=== PATIENT | male | born 1925 | race Caucasian/White ===

== ENCOUNTER 2016-11-02 18:12 | Inpatient (IN) | payer MEDICARE, MEDICAID ==
[~2016-11-02] VITALS: Ht 165.1 cm; Wt 70.0 kg
[~2016-11-02 18:12] MED LIST: 1-ME1LIQ PO; ACET325 PO; AGGR20025 PO; ALBU0.086 INH; ALLO100T PO; ATEN-102 PO; AUGM500T7 OR; CARB0.5D16 EACH EYE; ENOX40P SQ; KPHOS250 PO; LACT PO; LORTA5 PO; MEDR4PAK3 PO; POTA20PA PO; PRAV40TA PO; TAMS0.4C67 PO; TEMA7.5C9 PO
[2016-11-02 18:20] VITALS: BP 153/68; PULSE 103; RESP 18; TEMP 99.2; O2SAT 93
[2016-11-02] MEDS ORDERED: ASPI-110 PO (18:41)
[2016-11-02] MEDS ORDERED: ALLO100T PO (18:41)
[2016-11-02] MEDS ORDERED: AMLO10TA2 PO (18:41)
[2016-11-02] MEDS ORDERED: TRAZ50TA12 PO (18:41)
[2016-11-02] MEDS ORDERED: TAMS0.4C4 PO (18:41)
[2016-11-02] MEDS ORDERED: LISI-519 PO (18:41)
[2016-11-02] MEDS ORDERED: POTA-243 PO (18:41)
[2016-11-02] MEDS ORDERED: CLOP75TA PO (18:41)
[2016-11-02] MEDS ORDERED: PRAV40TA2 PO (18:41)
[2016-11-02] MEDS ORDERED: FERR325T PO (18:41)
[2016-11-02] MEDS ORDERED: BACL10TA PO (18:41)
[2016-11-02] MEDS ORDERED: IPRASOL INH (18:41)
[2016-11-02] MEDS ORDERED: ZOFR4TAB PO (18:41)
[2016-11-02] MEDS ORDERED: PANT40TA3 PO (18:41)
[2016-11-02] MEDS ORDERED: REGL5TAB PO (18:41)
--- NOTE | 2016-11-02 18:48 | PD ---
HPI Chief Complaint: GI Complaint Time Seen by Provider: 18:28 Travel History International Travel<30 days: No Contact w/Intl Traveler<30days: No Traveled to known affect area: No History of Present Illness HPI This patient is sent from the skilled nursing for evaluation. According to staff he had 3 episodes of coffee-ground emesis today. Patient notes that he did have vomiting earlier today but denies any rectal bleeding or diarrhea or melena or abdominal pain. He is not nauseous at this time. He's had an occasional dry cough but otherwise feels his usual baseline. No fever. Symptoms severity is mild. No alleviating factors. He denies history of GI bleed. He is not on blood thinners. Duration one day. PFSH Past Medical History Anemia: Yes Arthritis: Yes (OA) Depression: Yes Heart Rhythm Problems: Yes (1974 ) Cancer: Yes (Prostate) Cardiovascular Problems: Yes (PVD) High Cholesterol: Yes Congestive Heart Failure: Yes Cerebrovascular Accident: Yes (Lt. sided deficit, dysphagia) Coronary Artery Disease: Yes Dementia: Yes Diminished Hearing: Yes GERD: Yes Gout: Yes Genitourinary: Yes (BPH, CKD) Headaches: Yes Hypertension: Yes Immune Disorder: No Musculoskeletal: Yes Neurologic: Yes (Neuropathy ) Psychiatric: Yes Reproductive: No Respiratory: No Immunizations Current: Yes Radiation Therapy: Yes (Prostate) Tetanus Vaccination: Unknown Influenza Vaccination: No (Unknown) PNEUMOCCOCAL Vaccine (Year): 1 Past Surgical History Eye Surgery: Yes (BL cataracts) Joint Replacement: Yes (Lt. hip) Social History Alcohol Use: Yes (Beer few times a week ) Tobacco Use: No Substance Use: No Allergies-Medications (Allergen,Severity, Reaction): Coded Allergies: No Known Allergies (Verified , 11/02/16) Reported Meds & Prescriptions Reported Meds & Active Scripts Active Reported Aspirin 81 (Aspirin) 81 Mg Tabdr 81 Mg PO DAILY Ferrous Sulfate 325 Mg Tab 325 Mg PO DAILY Amlodipine (Amlodipine Besylate) 10 Mg Tab 10 Mg PO DAILY Klor-Con 10 (Potassium Chloride) 10 Meq Tab 10 Meq PO BID Trazodone (Trazodone HCl) 50 Mg Tab 25 Mg PO HS Pravastatin 40 Mg Tab 40 Mg PO DAILY Clopidogrel (Clopidogrel Bisulfate) 75 Mg Tab 75 Mg PO DAILY Allopurinol 100 Mg Tab 100 Mg PO DAILY Tamsulosin (Tamsulosin HCl) 0.4 Mg Cap 0.4 Mg PO HS Lisinopril 5 Mg Tab 5 Mg PO DAILY Baclofen 10 Mg Tab 10 Mg PO Q8HR PRN Duoneb (Ipratropium-Albuterol Neb) 0.5-2.5 Mg/3 Ml Neb 1 Nebule INH Q6HR NEB PRN Zofran (Ondansetron HCl) 4 Mg Tab 4 Mg PO Q6HR PRN Reglan (Metoclopramide HCl) 5 Mg Tab 5 Mg PO DIRECTED Pantoprazole (Pantoprazole Sodium) 40 Mg Tab 40 Mg PO DAILY Review of Systems General / Constitutional: No: Fever Eyes: No: Visual changes HENT: No: Headaches Cardiovascular: No: Chest Pain or Discomfort Respiratory: Positive: Cough, No: Shortness of Breath Gastrointestinal: Positive: Nausea, Vomiting, No: Abdominal Pain Genitourinary: No: Dysuria Musculoskeletal: No: Pain Skin: No Rash Neurologic: No: Weakness Psychiatric: No: Depression Endocrine: No: Polydipsia Hematologic/Lymphatic: No: Easy Bruising Physical Exam Narrative GENERAL: Well-nourished, well-developed patient in no apparent distress. SKIN: Warm and dry. HEAD: Atraumatic. Normocephalic. EYES: Pupils equal and round. No scleral icterus. No injection or drainage. ENT: No nasal bleeding or discharge. Mucous membranes pink and moist. NECK: Trachea midline. No JVD. CARDIOVASCULAR: Regular rate and rhythm. No murmur appreciated. RESPIRATORY: No accessory muscle use. Clear to auscultation. Breath sounds equal bilaterally. GASTROINTESTINAL: Abdomen soft, non-tender, nondistended. Hepatic and splenic margins not palpable. MUSCULOSKELETAL: No obvious deformities. No clubbing. No cyanosis. No edema. NEUROLOGICAL: Awake and alert. No obvious cranial nerve deficits. Motor grossly within normal limits. Normal speech. PSYCHIATRIC: Appropriate mood and affect; insight and judgment normal. Data Data Last Documented VS Vital Signs Date Time Temp Pulse Resp B/P Pulse Ox O2 Delivery O2 Flow Rate FiO2 11/02/16 18:20 99.2 103 18 153/68 93 MDM Medical Decision Making Medical Screen Exam Complete: Yes Emergency Medical Condition: Yes Medical Record Reviewed: Yes Differential Diagnosis Gastric ulcer, esophagitis, gastritis Narrative Course I have reviewed the patient's electronic medical record. Reviewed his skilled nursing paperwork and medication list Patient looks hemodynamically stable. He is basically asymptomatic. I'm just seeing him 15 minutes before my shift ends. I've initiated the workup to include IV placement along with CBC and metabolic profile and coagulation studies He is on cardiac monitoring. Case will be checked out to Dr. Bolaños to assist with disposition after workup complete. He already takes acid blocking medication Mark Anthony Linda MD Nov 02, 2016 18:47
[2016-11-02 19:10] LABS: EOSINOPHIL % 0.1 % (0.0-4.0); HEMATOCRIT 38.6 % (39.0-51.0); LYMPH % 3.1 % (9.0-44.0); LYMPHOCYTE # 0.8 TH/MM3 (1.0-4.8); MEAN CORPUSCULAR HGB CONC 33.7 % (32.0-36.0); MONO % 3.3 % (0.0-8.0); NEUT % 93.5 % (16.0-70.0); PLATELET COUNT 236 TH/MM3 (150-450); RED BLOOD COUNT 4.07 MIL/MM3 (4.50-5.90); RED CELL DISTRIBUTION WIDTH 11.9 % (11.6-17.2); WHITE BLOOD COUNT 25.6 TH/MM3 (4.0-11.0)
[2016-11-02 19:13] LABS: HEMO FLAGS DIFF FINAL
[2016-11-02 19:15] LABS: POTASSIUM 4.2 MEQ/L (3.5-5.1)
[2016-11-02 19:18] LABS: BICARBONATE 23.8 MEQ/L (21.0-32.0)
[2016-11-02 19:20] LABS: APTT (PATIENT) 22.9 SEC (24.3-30.1); PROTHROMBIN TIME - PATIENT 11.2 SEC (9.8-11.6)
[2016-11-02 19:30] VITALS: BP 145/85; PULSE 89; RESP 18; O2SAT 96
[2016-11-02] MEDS ORDERED: SODIUM CHLOR 0.9% 1000 ML INJ 1,000 ML IV SCH ×2 (21:00→22:45)
--- NOTE | 2016-11-02 21:02 | RADHPO ---
EXAM DATE/TIME: 11/02/2016 20:05 [facility] COMPARISON: CT ABDOMEN & PELVIS W/O CONTRAST, December 01, 2012, 21:05. INDICATIONS : Nausea and vomiting beginning today. ORAL CONTRAST: No oral contrast ingested. RADIATION DOSE: 20.96 CTDIvol (mGy) MEDICAL HISTORY : Congestive hearrt failure. Gastroesophageal reflux disease. Carcinoma, prostate. SURGICAL HISTORY : Left hip replacement. ENCOUNTER: Initial ACUITY: 1 day PAIN SCALE: 5/10 LOCATION: Abdomen. TECHNIQUE: Volumetric scanning of the abdomen and pelvis was performed. Using automated exposure control and ad justment of the mA and/or kV according to patient size, radiation dose was kept as low as reasonably achievable to obtain optimal diagnostic quality images. FINDINGS: Atherosclerotic calcifications of the aorta, coronary arteries and visceral branches again seen. 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 Liver, gallbla dder, spleen, pancreas, adrenal glands are unremarkable. Bilateral renal cysts are again seen. Left t otal hip arthroplasty is noted. There is mild bronchiectasis and peribronchial thickening in the lowe r lobes. Patchy right basilar infiltrate. Degenerative changes of the spine are seen. No free fluid o r free air. No obstruction. The esophagus is distended and fluid-filled. There is mild gastric disten tion. CONCLUSION: 1. Mild gastric distention and fluid-filled esophagus. 2. No bowel obstruction. Boston Bryant MD on November 02, 2016 at 20:44 Board Certified Radiologist. This report was verified electronically.
[2016-11-02 21:12] VITALS: BP 152/84; PULSE 92; RESP 18; O2SAT 94
--- NOTE | 2016-11-02 21:22 | PD ---
Physical Exam Time Seen by Provider: 21:[address] PITTMAN left this patient with me to check the results of the lab and make a disposition. Also, the patient has had a cough productive of yellow sputum for 3 days. In the past he has been admitted for pneumonia with a similar cough. On physical exam the patient has left lower quadrant tenderness without guarding or rebound. Lung exam shows right posterior lower rhonchi, rales. The CBC shows a white count of 25,600. There is a shift to the left with 94% neutrophils. The basic metabolic profile shows a BUN of 37, creatinine 2.0, glucose 173 but is otherwise normal. Data Data Last Documented VS Vital Signs Date Time Temp Pulse Resp B/P Pulse Ox O2 Delivery O2 Flow Rate FiO2 11/02/16 22:41 88 18 154/75 95 Room Air 11/02/16 18:20 99.2 Orders Iv Access Insert/Monitor (11/02/16 18:53) Complete Blood Count With Diff (11/02/16 18:53) Basic Metabolic Panel (Bmp) (11/02/16 18:53) Prothrombin Time / Inr (Pt) (11/02/16 18:53) Act Partial Throm Time (Ptt) (11/02/16 18:53) Blood Culture (11/02/16 19:39) Urinalysis - C+S If Indicated (11/02/16 19:39) Ct Abd/Pel W/O Iv Contrast (11/02/16 19:39) Lactic Acid (11/02/16 19:56) Sodium Chlor 0.9% 1000 Ml Inj (Ns 1000 M (11/02/16 21:00) Chest, Pa & Lat (11/02/16 21:10) Amylase (11/02/16 18:20) Lipase (11/02/16 18:20) Pneumococcal Urinary Antigen (11/02/16 21:22) Legionella Urinary Antigen (11/02/16 21:22) Piperacil-Tazo 4.5 Gm Premix (Zosyn 4.5 (11/02/16 21:30) Azithromycin Inj (Zithromax Inj) (11/02/16 21:30) Sodium Chlor 0.9% 1000 Ml Inj (Ns 1000 M (11/02/16 22:45) Labs Laboratory Tests Test 11/02/16 11/02/16 18:20 19:50 White Blood Count 25.6 TH/MM3 Red Blood Count 4.07 MIL/MM3 Hemoglobin 13.0 GM/DL Hematocrit 38.6 % Mean Corpuscular Volume 95.0 FL Mean Corpuscular Hemoglobin 32.0 PG Mean Corpuscular Hemoglobin 33.7 % Concent Red Cell Distribution Width 11.9 % Platelet Count 236 TH/MM3 Mean Platelet Volume 8.2 FL Neutrophils (%) (Auto) 93.5 % Lymphocytes (%) (Auto) 3.1 % Monocytes (%) (Auto) 3.3 % Eosinophils (%) (Auto) 0.1 % Basophils (%) (Auto) 0.0 % Neutrophils # (Auto) 24.0 TH/MM3 Lymphocytes # (Auto) 0.8 TH/MM3 Monocytes # (Auto) 0.8 TH/MM3 Eosinophils # (Auto) 0.0 TH/MM3 Basophils # (Auto) 0.0 TH/MM3 CBC Comment DIFF FINAL Differential Comment Prothrombin Time 11.2 SEC Prothromb Time International 1.0 RATIO Ratio Activated Partial 22.9 SEC Thromboplast Time Sodium Level 141 MEQ/L Potassium Level 4.2 MEQ/L Chloride Level 105 MEQ/L Carbon Dioxide Level 23.8 MEQ/L Anion Gap 12 MEQ/L Blood Urea Nitrogen 37 MG/DL Creatinine 2.00 MG/DL Estimat Glomerular Filtration 32 ML/MIN Rate Random Glucose 173 MG/DL Calcium Level 9.4 MG/DL Amylase Level 35 U/L Lipase 96 U/L Lactic Acid Level 1.4 mmol/L [facility] Medical Record Reviewed: Yes Supervised Visit with JOHN: Yes Interpretation(s) The CT abdomen pelvis shows bowel gastric distention and fluid filled esophagus as well as patchy right basilar infiltrate. The chest x-ray is normal. The CBC shows a white count of 25,600 with 94% neutrophils. The coagulation profile was essentially normal. The basic metabolic profile shows a creatinine of 2.0, BUN of 37, GFR 32 and glucose 173 but is otherwise unremarkable. Differential Diagnosis Pneumonia, diverticulitis, ischemic bowel, sepsis, electrolyte disorder, hyper/ hypoglycemia, renal insufficiency Narrative Course The patient appears to have pneumonia seen on the CT scan. The pneumonia is easily heard with auscultation. The patient is not hypoxic. I discussed the patient with Dr. Solis, the patient will be admitted to her. Physician Communication Physician Communication I discussed the patient with Dr. Solis. The patient will be admitted to her. Diagnosis Primary Impression: Pneumonia Additional Impression: Abdominal pain Ghassan Bolaños MD Nov 02, 2016 21:22
[2016-11-02] MEDS ORDERED: AZITHROMYCIN INJ 500 MG in SODIUM CHLOR 0.9% 250 ML INJ 250 ML IV ONE (21:30)
[2016-11-02] MEDS ORDERED: PIPERACIL-TAZO 4.5 GM PREMIX 100 ML IV ONE (21:30)
--- NOTE | 2016-11-02 21:50 | RADHPO ---
EXAM DATE/TIME: 11/02/2016 21:15 [facility] COMPARISON: CHEST PA & LAT, December 07, 2012, 9:23. INDICATIONS : Cough and vomiting. MEDICAL HISTORY : Stroke. Congestive heart failure. Gastroesophageal reflux disease. Carcinoma, prostate. SURGICAL HISTORY : None. ENCOUNTER: Initial ACUITY: 1 day PAIN SCORE: 3/10 LOCATION: Bilateral chest FINDINGS: PA and lateral views of the chest demonstrate the lungs to be symmetrically aerated without evidence of mass, infiltrate or effusion. The cardiomediastinal contours are unremarkable. Osseous structure s are intact. CONCLUSION: Normal examination. Boston Bryant MD on November 02, 2016 at 21:48 Board Certified Radiologist. This report was verified electronically.
[2016-11-02 22:41] VITALS: BP 154/75; PULSE 88; RESP 18; O2SAT 95
[2016-11-02] MEDS ORDERED: NALOXONE HCL 0.4 MG/ML AMP IV PRN (23:00)
[2016-11-02] MEDS ORDERED: SODIUM CHLORIDE 0.9% FLUSH 5 ML FLUSH FLUSH PRN (23:00)
[2016-11-02 23:21] LABS: HEMATOCRIT 31.7 % (39.0-51.0); REVIEW FLAG FINAL
[2016-11-02 23:45] VITALS: BP 136/80; PULSE 75; RESP 20; TEMP 98.2; O2SAT 93
[2016-11-02 23:53] VITALS: BP 148/80; PULSE 89; RESP 18; O2SAT 94
[2016-11-03 04:00] VITALS: BP 160/89; PULSE 87; RESP 20; TEMP 98.5; O2SAT 92
[2016-11-03 06:00] LABS: AUTOMATED NEUTROPHIL # 21.4 TH/MM3 (1.8-7.7); EOSINOPHIL # 0.1 TH/MM3 (0-0.4); EOSINOPHIL % 0.4 % (0.0-4.0); HEMATOCRIT 30.8 % (39.0-51.0); LYMPHOCYTE # 1.5 TH/MM3 (1.0-4.8); MEAN CELL VOLUME 95.5 FL (80.0-100.0); MEAN CORPUSCULAR HEMOGLOBIN 33.2 PG (27.0-34.0); MEAN CORPUSCULAR HGB CONC 34.8 % (32.0-36.0); MONO % 6.6 % (0.0-8.0); PLATELET COUNT 194 TH/MM3 (150-450); RED BLOOD COUNT 3.23 MIL/MM3 (4.50-5.90); RED CELL DISTRIBUTION WIDTH 12.1 % (11.6-17.2); WHITE BLOOD COUNT 24.6 TH/MM3 (4.0-11.0)
[2016-11-03 06:01] LABS: HEMO FLAGS DIFF FINAL
[2016-11-03 06:11] LABS: POTASSIUM 3.7 MEQ/L (3.5-5.1)
[2016-11-03 06:14] LABS: BICARBONATE 22.7 MEQ/L (21.0-32.0)
[2016-11-03 06:50] LABS: BLOOD, URINE SMALL (NEG); GLUCOSE,URINE NEG (NEG); KETONE, URINE TRACE mg/dL (NEG); NITRITE,URINE NEG (NEG)
[2016-11-03 06:52] LABS: METHOD OF COLLECTION CLEAN CATCH; URINE COLOR YELLOW (YELLW/STRAW)
[2016-11-03 06:56] LABS: COMMENT (UR) CULT NOT INDICATED; CULTURE IF INDICATED CULT NOT INDICATED; RBC, URINE 0-3 /hpf (0-3); SQUAMOUS EPITHELIAL CELL URINE 0-5 /hpf (0-5)
--- NOTE | 2016-11-03 07:57 | HHI.HP ---
Johnny Dong [facility] Johnny Dong MD Admission Diagnosis pneumonia Diagnoses: (1) Sepsis Diagnosis: Principal (2) HCAP (healthcare-associated pneumonia) Diagnosis: Principal (3) Coffee ground emesis Diagnosis: Principal (4) Anemia Diagnosis: Principal (5) Leukocytosis Diagnosis: Principal (6) Prerenal azotemia Diagnosis: Principal (7) Stage 3 chronic kidney disease Diagnosis: Secondary (8) HTN (hypertension) Diagnosis: Principal Chief Complaint: cough Travel History International Travel<30 Days: No Contact w/Intl Traveler <30 Da: No Traveled to Known Affected Are: No Sepsis Criteria SIRS Criteria (2 or more): Heart rate over 90, WBC > 97206, < 4000 or > 10% bands Sepsis Criteria (SIRS+source): Infect source susp/known Criteria Outcome: Meets sepsis criteria History of Present Illness 89-year-old male with history of dementia, anemia, CAD, CHF, remote h/ o A.Fib, hypertension, hyperlipidemia, CVA, PVD, CKD, BPH, arthritis, depression , gout, GERD, and h/o prostate cancer presents with complaint of cough. [facility] as there was report by staff of 3 episodes of coffee-ground emesis per ED note. Patient states he has been coughing a lot with production of yellowish-white sputum. Admits to mild fever. Admits to nausea and vomiting stating he has had black vomitus and also states he had used red cough syrup. He denies any recent melena and states he has not had a bowel movement in the past few days. He denies any chest pain. Only admits to abdominal pain from coughing. Denies any dysuria or diarrhea. Review of Systems Constitutional: COMPLAINS OF: Fever Respiratory: COMPLAINS OF: Cough Cardiovascular: DENIES: Chest pain Gastrointestinal: COMPLAINS OF: Abdominal pain (from coughing), Nausea, Vomiting, DENIES: Black stools, Diarrhea Genitourinary: DENIES: Dysuria Other ROS x 10 negative unless otherwise stated above. Past Family Social History Past Medical History Medical history is obtained primarily from EMR as patient is not completely reliable. Dementia CVA with left-sided deficits Coronary artery disease PVD Atrial fibrillation 1974 Hyperlipidemia Hypertension CKD, BPH GERD Gout Prostate cancer Osteoarthritis Anemia Past Surgical History Left hip replacement Bilateral cataract surgery Reported Medications Aspirin 81 (Aspirin) 81 Mg Tabdr 81 Mg PO DAILY Ferrous Sulfate 325 Mg Tab 325 Mg PO DAILY Amlodipine (Amlodipine Besylate) 10 Mg Tab 10 Mg PO DAILY Klor-Con 10 (Potassium Chloride) 10 Meq Tab 10 Meq PO BID Trazodone (Trazodone HCl) 50 Mg Tab 25 Mg PO HS Pravastatin 40 Mg Tab 40 Mg PO DAILY Clopidogrel (Clopidogrel Bisulfate) 75 Mg Tab 75 Mg PO DAILY Allopurinol 100 Mg Tab 100 Mg PO DAILY Tamsulosin (Tamsulosin HCl) 0.4 Mg Cap 0.4 Mg PO HS Lisinopril 5 Mg Tab 5 Mg PO DAILY Baclofen 10 Mg Tab 10 Mg PO Q8HR PRN Duoneb (Ipratropium-Albuterol Neb) 0.5-2.5 Mg/3 Ml Neb 1 Nebule INH Q6HR NEB PRN Zofran (Ondansetron HCl) 4 Mg Tab 4 Mg PO Q6HR PRN Reglan (Metoclopramide HCl) 5 Mg Tab 5 Mg PO DIRECTED Pantoprazole (Pantoprazole Sodium) 40 Mg Tab 40 Mg PO DAILY Allergies: Coded Allergies: No Known Allergies (Verified , 11/02/16) Family History Father of pneumonia. Social History Denies cigarette smoking. Admits to drinking very little alcohol; occasional beer. Physical Exam Vital Signs Vital Signs Date Time Temp Pulse Resp B/P Pulse Ox O2 Delivery O2 Flow Rate FiO2 11/03/16 04:00 98.5 87 20 160/89 92 11/02/16 23:54 89 18 94 11/02/16 23:53 89 18 148/80 94 Room Air 11/02/16 23:45 98.2 75 20 136/80 93 11/02/16 22:41 88 18 154/75 95 Room Air 11/02/16 21:12 92 18 152/84 94 Room Air 11/02/16 19:30 89 18 145/85 96 Room Air 11/02/16 18:20 99.2 103 18 153/68 93 Physical Exam GENERAL: This is a pleasant, well-nourished, well-developed patient, in no apparent distress. SKIN: No rashes, ecchymoses or lesions. HEAD: Atraumatic. Normocephalic. EYES: Pupils equal round. No scleral icterus. No injection or drainage. ENT: MMM. Airway patent. NECK: Trachea midline. CARDIOVASCULAR: Regular rate and rhythm. RESPIRATORY: Crackles over the right base. GASTROINTESTINAL: Abdomen soft, non-tender, nondistended. MUSCULOSKELETAL: No lower extremity edema bilaterally. NEUROLOGICAL: Awake and alert. Motor grossly within normal limits. Normal speech. Laboratory Laboratory Tests Test 11/02/16 11/02/16 11/02/16 11/03/16 18:20 19:50 23:05 05:10 White Blood Count 25.6 24.6 Red Blood Count 4.07 3.23 Hemoglobin 13.0 10.9 10.7 Hematocrit 38.6 31.7 30.8 Mean Corpuscular Volume 95.0 95.5 Mean Corpuscular Hemoglobin 32.0 33.2 Mean Corpuscular Hemoglobin 33.7 34.8 Concent Red Cell Distribution Width 11.9 12.1 Platelet Count 236 194 Mean Platelet Volume 8.2 8.3 Neutrophils (%) (Auto) 93.5 87.0 Lymphocytes (%) (Auto) 3.1 6.0 Monocytes (%) (Auto) 3.3 6.6 Eosinophils (%) (Auto) 0.1 0.4 Basophils (%) (Auto) 0.0 0.0 Neutrophils # (Auto) 24.0 21.4 Lymphocytes # (Auto) 0.8 1.5 Monocytes # (Auto) 0.8 1.6 Eosinophils # (Auto) 0.0 0.1 Basophils # (Auto) 0.0 0.0 CBC Comment DIFF FINAL DIFF FINAL Differential Comment Prothrombin Time 11.2 Prothromb Time International 1.0 Ratio Activated Partial 22.9 Thromboplast Time Sodium Level 141 143 Potassium Level 4.2 3.7 Chloride Level 105 111 Carbon Dioxide Level 23.8 22.7 Anion Gap 12 9 Blood Urea Nitrogen 37 45 Creatinine 2.00 1.80 Estimat Glomerular Filtration 32 36 Rate Random Glucose 173 115 Calcium Level 9.4 8.9 Amylase Level 35 Lipase 96 Blood Type A NEGATIVE Antibody Screen NEGATIVE Lactic Acid Level 1.4 Test 11/03/16 06:40 Urine Collection Type CLEAN CATCH Urine Color YELLOW Urine Turbidity CLEAR Urine pH 6.0 Urine Specific [place] 1.018 Urine Protein 30 Urine Glucose (UA) NEG Urine Ketones TRACE Urine Occult Blood SMALL Urine Nitrite NEG Urine Bilirubin NEG Urine Leukocyte Esterase NEG Urine RBC 0-3 Urine Squamous Epithelial 0-5 Cells Urine Amorphous Sediment FEW Microscopic Urinalysis Comment CULT NOT INDICATED Urine Collection Time 0640 Date/Time Procedure Status Source Growth 11/03/16 06:40 Legionella Antigen Received Urine Random Urine Pending 11/03/16 06:40 Streptococcus pneumoniae Antigen (M Received Urine Random Urine Pending 11/02/16 19:55 Aerobic Blood Culture Received Blood Peripheral Pending 11/02/16 19:55 Anaerobic Blood Culture Received Blood Peripheral Pending Result Diagram: 11/03/16 0510 11/03/16 0510 Imaging Last Impressions Chest X-Ray 11/02/162109 Signed Impressions: Service Date/Time: Wednesday, November 02, 2016 21:15 - CONCLUSION: Normal examination. Boston Bryant MD Abdomen/Pelvis CT 11/02/16 193 Signed Impressions: Service Date/Time: Wednesday, November 02, 2016 20:05 - CONCLUSION: 1. Mild gastric distention and fluid-filled esophagus. 2. No bowel obstruction. Boston Bryant MD Assessment and Plan Assessment and Plan 89-year-old male with: Sepsis: Heart rate 103. White blood cell count 25.6-->24.6, elevated neutrophils. Lactic acid normal. Source of infection pneumonia. -IVF -Antibiotics as below -Blood cultures 2 pending. -Telemetry, vitals -Monitor intake and output HCAP: [facility] Productive cough. Chest x-ray was personally reviewed without acute abnormality, but CT of the abdomen showed a right basilar infiltrate. Leukocytosis. Patient was given 1 dose of Zosyn and azithromycin in the ED. -Continue Zosyn 4.5 g every 6 hours IV. Azithromycin 500 mg IV every 24 hours. -Sputum culture and Gram stain -Legionella and pneumococcal urinary antigen testing pending -Influenza test -Tessalon for cough Coffee-ground emesis/anemia: 3 episodes reported by [facility]F staff. Hemoglobin 13--> 10.7. History of anemia. Patient takes ferrous sulfate at home. -Check H&H every 6 hours -Start Protonix drip -GI consulted -Hold ferrous sulfate for now until evaluation by GI -IV NS @ 42 mL/hr. Caution with IVF due to h/o CHF. Prerenal azotemia/CKD Stage 3: Creatinine relatively stable based on prior labs , but BUN is acutely elevated which is likely due to bleeding. BUN/Cr 37/2 --> 45/1.8 s/p 1L IV NS in ED. -IV NS -Monitor BMP HTN: BP 160/89 this morning. Patient took his blood pressure medications yesterday. -Continue home lisinopril and amlodipine this morning Chronic medical problems include: Anemia, CAD, PVD, gout, hyperlipidemia, BPH, GERD. -Hold aspirin and Plavix due to active bleeding -Hold oral Protonix as patient is on drip -Hold allopurinol due to impaired renal function -Continue other home medications as indicated. DVT prevention: TEDs/SCDs. Pharmacologic prophylaxis is contraindicated due to GI bleeding. Written by Hawa Wells PA-C acting as scribe for Dr. Franklin on 11/03/16 at ~0745. The documentation accurately reflects the work and decisions performed face-to- face by la Dr. Franklin on 11/03/16 at ~0745. Physician Certification 2 Midnight Certification Type: Admission for Inpatient Services Order for Inpatient Services The services are ordered in accordance with Medicare regulations or non- Medicare payer requirements, as applicable. In the case of services not specified as inpatient-only, they are appropriately provided as inpatient services in accordance with the 2-midnight benchmark. Estimated LOS (days): 2 days is the estimated time the patient will need to remain in the hospital, assuming treatment plan goals are met and no additional complications. Post-Hospital Plan: [facility] Hawa Wells Nov 03, 2016 07:56
[2016-11-03] MEDS: SODIUM CHLOR 0.9% 1000 ML INJ 1,000 ML IV SCH (09:00)
[2016-11-03] MEDS ORDERED: LEVOFLOXACIN 750 MG PREMIX INJ 150 ML IV SCH ×2 (09:00)
[2016-11-03 09:29] VITALS: BP 160/79; PULSE 84; RESP 16; TEMP 96.8; O2SAT 92
[2016-11-03] MEDS: POTASSIUM CHLORIDE 10 MEQ CONTROLLED RELEASE TAB PO SCH ×2 (09:59→20:47)
[2016-11-03] MEDS: SODIUM CHLORIDE 0.9% FLUSH 5 ML FLUSH FLUSH SCH ×2 (09:59→20:44)
[2016-11-03] MEDS: LISINOPRIL 5 MG TAB PO SCH (09:59)
[2016-11-03] MEDS ORDERED: PIPERACIL-TAZO 3.375 GM PREMIX 50 ML IV SCH (10:00)
[2016-11-03] MEDS ORDERED: PIPERACIL-TAZO 4.5 GM PREMIX 100 ML IV SCH (10:00)
[2016-11-03] MEDS: PRAVASTATIN SOD 40 MG TAB PO SCH (10:00)
[2016-11-03] MEDS: BENZONATATE 100 MG CAP PO PRN ×2 (10:00→20:47)
[2016-11-03 11:00] LABS: HEMATOCRIT 32.3 % (39.0-51.0); REVIEW FLAG FINAL
[2016-11-03 12:00] VITALS: BP 140/73; PULSE 75; RESP 16; TEMP 99.2; O2SAT 94
--- NOTE | 2016-11-03 12:02 | PD.CONS ---
HPI History of Present Illness This is a 89 year old who [facility] He was brought to the ED for C/O cough and 3 episodes of coffee- ground emesis. The patient states he vomited black emesis about 4 times and had associated epigastric tenderness and nausea. He denies any Hx of GI bleeding or ulcers in the past, but does have GERD and tries to avoid spicy and tomato based foods. He is on Omeprazole. Does have a Hx of anemia and H&H today is 10.9 and 32.3 which is down from 13.0 and 38.6 on admission. Denies diarrhea, has not had a BM for about 4 days. He had colonoscopies in the past but he cannot remember when and what the results were, he is not interested in having another colonoscopy. He is not on any blood thinners. CT abdomen was done which showed esophagus was distended and fluid filled, no bowel obstruction was seen. He continues to have tenderness in the epigastric area, but no further vomiting. He does have a cough which is productive. He has a known Hx of prostate CA, HTN, CVA with residual left sided weakness. Denies difficulty swallowing. (Yana Jameson) FOR[facility]LY [facility] Past Medical History Medical history is obtained primarily from EMR as patient is not completely reliable. Dementia CVA with left-sided deficits Coronary artery disease PVD Atrial fibrillation 1974 Hyperlipidemia Hypertension CKD, BPH GERD Gout Prostate cancer Osteoarthritis Anemia Past Surgical History Left hip replacement Bilateral cataract surgery (Yana Jameson) Coded Allergies: No Known Allergies (Verified , 11/02/16) Medications Reported Meds & Active Scripts Active Reported Aspirin 81 (Aspirin) 81 Mg Tabdr 81 Mg PO DAILY Ferrous Sulfate 325 Mg Tab 325 Mg PO DAILY Amlodipine (Amlodipine Besylate) 10 Mg Tab 10 Mg PO DAILY Klor-Con 10 (Potassium Chloride) 10 Meq Tab 10 Meq PO BID Trazodone (Trazodone HCl) 50 Mg Tab 25 Mg PO HS Pravastatin 40 Mg Tab 40 Mg PO DAILY Clopidogrel (Clopidogrel Bisulfate) 75 Mg Tab 75 Mg PO DAILY Allopurinol 100 Mg Tab 100 Mg PO DAILY Tamsulosin (Tamsulosin HCl) 0.4 Mg Cap 0.4 Mg PO HS Lisinopril 5 Mg Tab 5 Mg PO DAILY Baclofen 10 Mg Tab 10 Mg PO Q8HR PRN Duoneb (Ipratropium-Albuterol Neb) 0.5-2.5 Mg/3 Ml Neb 1 Nebule INH Q6HR NEB PRN Zofran (Ondansetron HCl) 4 Mg Tab 4 Mg PO Q6HR PRN Reglan (Metoclopramide HCl) 5 Mg Tab 5 Mg PO DIRECTED Pantoprazole (Pantoprazole Sodium) 40 Mg Tab 40 Mg PO DAILY Family History Father of pneumonia. Social History Denies cigarette smoking. Admits to drinking very little alcohol; occasional beer. (Yana Jameson) Review of Systems Gastrointestinal: COMPLAINS OF: Abdominal pain, Nausea, Vomiting, DENIES: Constipation, Diarrhea, Difficulty Swallowing, Odynophagia, Swelling of Abdomen (Yana Jameson) GI Exam Vitals I&O Vital Signs Date Time Temp Pulse Resp B/P Pulse Ox O2 Delivery O2 Flow Rate FiO2 11/03/16 09:29 96.8 84 16 160/79 92 11/03/16 04:00 98.5 87 20 160/89 92 11/02/16 23:54 89 18 94 11/02/16 23:53 89 18 148/80 94 Room Air 11/02/16 23:45 98.2 75 20 136/80 93 11/02/16 22:41 88 18 154/75 95 Room Air 11/02/16 21:12 92 18 152/84 94 Room Air 11/02/16 19:30 89 18 145/85 96 Room Air 11/02/16 18:20 99.2 103 18 153/68 93 I/O 11/02/16 11/02/16 11/02/16 11/03/16 11/03/16 11/03/16 07:00 15:00 23:00 07:00 15:00 23:00 Intake Total 60 ml Output Total 400 ml Balance -340 ml Intake Oral 60 ml Output Urine Total 400 ml # Bowel Movements 0 Imaging Last 48 hours Impressions Chest X-Ray 11/02/162109 Signed Impressions: Service Date/Time: Wednesday, November 02, 2016 21:15 - CONCLUSION: Normal examination. Boston Bryant MD Abdomen/Pelvis CT 11/02/16 193 Signed Impressions: Service Date/Time: Wednesday, November 02, 2016 20:05 - CONCLUSION: 1. Mild gastric distention and fluid-filled esophagus. 2. No bowel obstruction. Boston Bryant MD Laboratory Test 11/02/16 11/02/16 11/02/16 11/03/16 18:20 19:50 23:05 05:10 White Blood Count 25.6 TH/MM3 24.6 TH/MM3 Red Blood Count 4.07 MIL/MM3 3.23 MIL/MM3 Hemoglobin 13.0 GM/DL 10.9 GM/DL 10.7 GM/DL Hematocrit 38.6 % 31.7 % 30.8 % Mean Corpuscular Volume 95.0 FL 95.5 FL Mean Corpuscular Hemoglobin 32.0 PG 33.2 PG Mean Corpuscular Hemoglobin 33.7 % 34.8 % Concent Red Cell Distribution Width 11.9 % 12.1 % Platelet Count 236 TH/MM3 194 TH/MM3 Mean Platelet Volume 8.2 FL 8.3 FL Neutrophils (%) (Auto) 93.5 % 87.0 % Lymphocytes (%) (Auto) 3.1 % 6.0 % Monocytes (%) (Auto) 3.3 % 6.6 % Eosinophils (%) (Auto) 0.1 % 0.4 % Basophils (%) (Auto) 0.0 % 0.0 % Neutrophils # (Auto) 24.0 TH/MM3 21.4 TH/MM3 Lymphocytes # (Auto) 0.8 TH/MM3 1.5 TH/MM3 Monocytes # (Auto) 0.8 TH/MM3 1.6 TH/MM3 Eosinophils # (Auto) 0.0 TH/MM3 0.1 TH/MM3 Basophils # (Auto) 0.0 TH/MM3 0.0 TH/MM3 CBC Comment DIFF FINAL DIFF FINAL Differential Comment Prothrombin Time 11.2 SEC Prothromb Time International 1.0 RATIO Ratio Activated Partial 22.9 SEC Thromboplast Time Sodium Level 141 MEQ/L 143 MEQ/L Potassium Level 4.2 MEQ/L 3.7 MEQ/L Chloride Level 105 MEQ/L 111 MEQ/L Carbon Dioxide Level 23.8 MEQ/L 22.7 MEQ/L Anion Gap 12 MEQ/L 9 MEQ/L Blood Urea Nitrogen 37 MG/DL 45 MG/DL Creatinine 2.00 MG/DL 1.80 MG/DL Estimat Glomerular Filtration 32 ML/MIN 36 ML/MIN Rate Random Glucose 173 MG/DL 115 MG/DL Calcium Level 9.4 MG/DL 8.9 MG/DL Amylase Level 35 U/L Lipase 96 U/L Blood Type A NEGATIVE Antibody Screen NEGATIVE Lactic Acid Level 1.4 mmol/L Test 11/03/16 11/03/16 06:40 10:50 Urine Collection Type CLEAN CATCH Urine Color YELLOW Urine Turbidity CLEAR Urine pH 6.0 Urine Specific Cable 1.018 Urine Protein 30 mg/dL Urine Glucose (UA) NEG mg/dL Urine Ketones TRACE mg/dL Urine Occult Blood SMALL Urine Nitrite NEG Urine Bilirubin NEG Urine Leukocyte Esterase NEG Urine RBC 0-3 /hpf Urine Squamous Epithelial 0-5 /hpf Cells Urine Amorphous Sediment FEW Microscopic Urinalysis Comment CULT NOT INDICATED Urine Collection Time 0640 Hemoglobin 10.9 GM/DL Hematocrit 32.3 % Date/Time Procedure Status Source Growth 11/03/16 10:30 Influenza Types A,B Antigen (MAGO) - Final Complete Nasal Washing NEGATIVE FOR FLU A AND B ANTIGEN.... 11/03/16 10:00 Gram Stain Received Sputum Expectorated Sputum Pending 11/03/16 10:00 Sputum Culture Received Sputum Expectorated Sputum Pending 11/03/16 06:40 Legionella Antigen - Final Complete Urine Random Urine PRESUMPTIVE NEGATIVE FOR LEGIONELLA P... 11/03/16 06:40 Streptococcus pneumoniae Antigen (M - Final Complete Urine Random Urine PRESUMPTIVE NEGATIVE FOR STREPTOCOCCU... 11/02/16 19:55 Aerobic Blood Culture - Preliminary Resulted Blood Peripheral NO GROWTH IN 1 DAY 11/02/16 19:55 Anaerobic Blood Culture - Preliminary Resulted Blood Peripheral NO GROWTH IN 1 DAY Physical Examination HEENT: Pupils round and reactive to light; normocephalic; atraumatic; no jaundice. Throat is clear. NECK: Neck is supple, no JVD, no lymphadenopathy. CHEST: Decreased breath sounds and bilateral wheezes CARDIAC: Regular rate and rhythm with no murmur gallop or rubs. ABDOMEN: Soft, mildly distended, tender in epigastric area; no hepatosplenomegaly; bowel sounds are present in all four quadrants. EXTREMITIES: No clubbing, cyanosis, or edema. SKIN: Normal; no rash; no jaundice. CAR DETAILER:; alert and oriented times three, forgetful (Yana Jameson) Assessment and Plan Assessment: (1) Coffee ground emesis (2) Abdominal pain (3) Constipation Plan This is an 89 year old male who had nausea, vomiting and coffee ground emesis with associated epigastric pain and anemia. He is on Plavix and takes aspirin and is on oral iron for anemia. Does have a known Hx of GERD and is on Omeprazole. He has had colonoscopies in the past but is not having any lower GI bleeding Sx at this time. For the coffee ground emesis and epigastric pain will schedule an EGD. Plan -NPO after midnight -Obtain consent for EGD -Hold Plavix -No NSAIDS -Continue PPI -Follow H&H -Call GI for any signs of bleeding -Add Miralax -Supportive care Patient was seen and examined by Dr. Cristina and myself, this consult is written on his behalf. (Yana Jameson) Physician Comments Seen and examined with BERENICE, no active bleeding at this time. Tolerating po diet.. Monitor H/H. EGD planned for tomorrow. Will follow, thank you (Loretta Cristina MD) Problem Qualifiers (1) Abdominal pain: Qualified Code: R10.13 - Epigastric pain Yana Jameson Nov 03, 2016 12:01 Loretta Cristina MD Nov 03, 2016 12:59
[2016-11-03] MEDS ORDERED: POLYETHYLENE GLYCOL 17 GM PKG PO PRN (12:15)
[2016-11-03] MEDS: PANTOPRAZOLE INJ 80 MG in SODIUM CHLORIDE 0.9% INJ 100 ML IV SCH ×2 (13:02→20:46)
[2016-11-03 16:00] VITALS: BP 139/72; PULSE 87; RESP 16; TEMP 98.9; O2SAT 94
[2016-11-03] MEDS: PIPERACIL-TAZO 3.375 GM PREMIX 50 ML IV SCH ×2 (16:00→23:46)
[2016-11-03] MEDS ORDERED: AZITHROMYCIN INJ 500 MG in SODIUM CHLOR 0.9% 250 ML INJ 250 ML IV SCH (16:00)
[2016-11-03 17:26] LABS: REVIEW FLAG FINAL
[2016-11-03 20:25] VITALS: PULSE 88
[2016-11-03] MEDS: AZITHROMYCIN INJ 500 MG in SODIUM CHLOR 0.9% 250 ML INJ 250 ML IV SCH (20:41)
[2016-11-03 20:47] VITALS: BP 154/81; PULSE 84; RESP 18; TEMP 98.4; O2SAT 95
[2016-11-03] MEDS: TAMSULOSIN HCL 0.4 MG CAP PO SCH (20:47)
[2016-11-03] MEDS: traZODone HCL 50 MG TAB PO SCH (20:48)
[2016-11-04] VITALS (7 sets, daily range): BP systolic 124–158; BP diastolic 60–92; PULSE 54–91; RESP 18–20; TEMP 97–99.4; O2SAT 93–97
[2016-11-04] MEDS: PIPERACIL-TAZO 3.375 GM PREMIX 50 ML IV SCH ×4 (03:59→20:57)
[2016-11-04 06:32] LABS: AUTOMATED NEUTROPHIL # 15.7 TH/MM3 (1.8-7.7); BASOPHIL # 0.1 TH/MM3 (0-0.2); BASOPHIL % 0.4 % (0.0-2.0); EOSINOPHIL # 0.4 TH/MM3 (0-0.4); HEMATOCRIT 28.2 % (39.0-51.0); HEMO FLAGS DIFF FINAL; LYMPH % 6.5 % (9.0-44.0); LYMPHOCYTE # 1.2 TH/MM3 (1.0-4.8); MEAN CELL VOLUME 94.8 FL (80.0-100.0); MEAN CORPUSCULAR HEMOGLOBIN 32.5 PG (27.0-34.0); MEAN CORPUSCULAR HGB CONC 34.3 % (32.0-36.0); MONO % 6.5 % (0.0-8.0); NEUT % 84.6 % (16.0-70.0); PLATELET COUNT 186 TH/MM3 (150-450); RED BLOOD COUNT 2.97 MIL/MM3 (4.50-5.90); RED CELL DISTRIBUTION WIDTH 12.1 % (11.6-17.2); WHITE BLOOD COUNT 18.6 TH/MM3 (4.0-11.0)
[2016-11-04 06:37] LABS: POTASSIUM 3.5 MEQ/L (3.5-5.1)
[2016-11-04 06:44] LABS: BICARBONATE 23.7 MEQ/L (21.0-32.0)
[2016-11-04] MEDS: POTASSIUM CHLORIDE 10 MEQ CONTROLLED RELEASE TAB PO SCH ×3 (09:00→20:46)
[2016-11-04] MEDS: PRAVASTATIN SOD 40 MG TAB PO SCH ×2 (09:52→16:11)
[2016-11-04] MEDS: PANTOPRAZOLE INJ 80 MG in SODIUM CHLORIDE 0.9% INJ 100 ML IV SCH ×2 (09:52→16:38)
[2016-11-04] MEDS: LISINOPRIL 5 MG TAB PO SCH ×2 (09:52→16:11)
[2016-11-04] MEDS: BENZONATATE 100 MG CAP PO PRN (09:53)
[2016-11-04] MEDS: SODIUM CHLORIDE 0.9% FLUSH 5 ML FLUSH FLUSH SCH ×2 (09:54→20:46)
[2016-11-04] MEDS: SODIUM CHLOR 0.9% 1000 ML INJ 1,000 ML IV SCH (09:55)
[2016-11-04] MEDS ORDERED: PNEUMOCOCCAL POLYVALENT INJ 25 MCG/0.5 ML SYR IM ONE (10:00)
--- NOTE | 2016-11-04 15:33 | MR ---
cc: OBINNA CRISTINA M.D., MATTHEW DATE: 11/04/2016. PATIENT OF: Mark Anthony Franklin MD. PROCEDURE PERFORMED: EGD. INDICATIONS FOR THE PROCEDURE: Nausea, vomiting, hematemesis. ENDOSCOPIST: Obinna Cristina MD. DESCRIPTION OF THE PROCEDURE IN DETAIL: After informed consent and explaining the risks of the procedure to the patient including bleeding, perforation, risk of anesthesia, Mr. Patel was placed in the left lateral decubitus position and sedated with the help of anesthesia. The upper endoscope was advanced from the mouth to the second portion of the duodenum. Normal duodenum seen. The scope withdrawn to the stomach revealing some gastritis in the body and the antrum, nonspecific. It was not bleeding. Retroflexion was normal. The distal esophagus revealed LA Class A esophagitis. No evidence of bleeding. The endoscope was withdrawn. The patient appeared to tolerate the procedure well. No apparent complications. IMPRESSION: Esophagitis, gastritis. RECOMMENDATIONS: 1. Advance diet. 2. Continue to monitor labs. 3. If there is further drop in hemoglobin, colonoscopy would be encouraged. Thank you for this referral. MD PJ Talley/DELIA /2:50 PM /3:30 PM
[2016-11-04] MEDS ORDERED: PROPOFOL 200 MG/20 ML AMP IV ONE (15:55)
--- NOTE | 2016-11-04 16:24 | HHI.PR ---
Subjective Remarks Follow up pneumonia, GI bleed, sepsis. The patient had EGD earlier today. He states that he feels okay today. Minimal shortness of breath. Mild cough that is nonproductive. Denies chest pain. No nausea or vomiting. Objective Vitals Vital Signs Date Time Temp Pulse Resp B/P Pulse Ox O2 Delivery O2 Flow Rate FiO2 11/04/16 14:57 82 16 123/63 95 11/04/16 14:47 100.0 53 16 105/60 95 11/04/16 14:10 99.4 86 20 124/60 94 11/04/16 12:00 98.7 84 19 139/82 97 11/04/16 08:00 99.0 85 19 127/76 94 11/04/16 04:00 97.3 83 18 137/70 93 11/04/16 00:00 97.8 90 20 139/77 94 11/03/16 20:47 98.4 84 18 154/81 95 11/03/16 20:25 88 I/O 11/03/16 11/03/16 11/03/16 11/04/16 11/04/16 11/04/16 07:00 15:00 23:00 07:00 15:00 23:00 Intake Total 60 ml 480 ml 1293 ml 343 ml 100 ml Output Total 400 ml 200 ml 800 ml Balance -340 ml 280 ml 1293 ml -457 ml 100 ml Intake Oral 60 ml 480 ml 750 ml IV Total 543 ml 343 ml Other 100 ml Output Urine Total 400 ml 200 ml 800 ml # Voids 3 # Bowel Movements 0 2 Result Diagram: 11/04/16 0535 11/04/16 0535 Imaging Last Impressions Chest X-Ray 11/02/162109 Signed Impressions: Service Date/Time: Wednesday, November 02, 2016 21:15 - CONCLUSION: Normal examination. Boston Bryant MD Abdomen/Pelvis CT 11/02/16 193 Signed Impressions: Service Date/Time: Wednesday, November 02, 2016 20:05 - CONCLUSION: 1. Mild gastric distention and fluid-filled esophagus. 2. No bowel obstruction. Boston Bryant MD Objective Remarks General: Elderly male in no acute distress. Heart: Regular rate and rhythm. No murmur. Lungs: Clear to auscultation bilaterally. No wheezes, rales, or rhonchi. Breathing is nonlabored. Abdomen: Soft, nontender, nondistended. Extremities: No lower extremity edema. Left upper and left lower extremity weakness. Psych: Alert and oriented. Procedures 11/04/16 EGD Urinary Catheter: No Vascular Central Line Catheter: No A/P Problem List: (1) Sepsis ICD Code: A41.9 Status: Acute (2) HCAP (healthcare-associated pneumonia) ICD Code: J18.9 Status: Acute (3) Coffee ground emesis ICD Code: K92.0 Status: Acute (4) Anemia ICD Code: D64.9 Status: Acute (5) Leukocytosis ICD Code: D72.829 Status: Acute (6) Prerenal azotemia ICD Code: R79.89 Status: Acute (7) Stage 3 chronic kidney disease ICD Code: N18.3 Status: Chronic (8) HTN (hypertension) ICD Code: I10 Status: Chronic Assessment and Plan 1. Sepsis: Source is pneumonia. Continue IV fluids, antibiotics. Blood cultures are negative so far. 2. Healthcare associated pneumonia: Patient lives at a [place] [facility]. Cough is productive. Chest x-ray showed no acute abnormality, but CT of the abdomen showed right basilar infiltrate. Patient also has leukocytosis, which is improving. Continue Zosyn, azithromycin. Sputum culture is pending. Influenza, Legionella, pneumococcal testing negative. 3. GI bleed: Patient had coffee-ground emesis. Hemoglobin has stabilized. Appreciate GI recommendations. Status post EGD. Patient found to have gastritis. He has been cleared for discharge by GI. Continue Protonix. 4. Chronic kidney disease stage III with acute worsening secondary to prerenal azotemia. Continue IV fluids. Monitor labs. 5. Hypertension: Continue lisinopril, amlodipine. 6. Coronary artery disease, peripheral vascular disease: Aspirin and Plavix on hold secondary to GI bleed. 7. Gout: Allopurinol on hold secondary to impaired renal function. 8. DVT prophylaxis: LONNY Paez. Chemical prophylaxis contraindicated secondary to GI bleed. Discharge Planning Possible discharge back to SNF tomorrow. Mark Anthony Franklin MD Nov 04, 2016 16:24
[2016-11-04] MEDS: AZITHROMYCIN INJ 500 MG in SODIUM CHLOR 0.9% 250 ML INJ 250 ML IV SCH (20:45)
[2016-11-04] MEDS: traZODone HCL 50 MG TAB PO SCH (20:46)
[2016-11-04] MEDS: TAMSULOSIN HCL 0.4 MG CAP PO SCH (20:46)
[2016-11-05] VITALS: BP 128/50; PULSE 61; RESP 18; TEMP 98.3; O2SAT 93
[2016-11-05] MEDS: PANTOPRAZOLE INJ 80 MG in SODIUM CHLORIDE 0.9% INJ 100 ML IV SCH ×3 (01:57→22:09)
[2016-11-05] MEDS: PIPERACIL-TAZO 3.375 GM PREMIX 50 ML IV SCH ×4 (03:26→22:08)
[2016-11-05 04:00] VITALS: BP 141/81; PULSE 78; RESP 18; TEMP 97.8; O2SAT 96
[2016-11-05 07:52] LABS: AUTOMATED NEUTROPHIL # 13.5 TH/MM3 (1.8-7.7); BASOPHIL % 0.3 % (0.0-2.0); EOSINOPHIL # 0.4 TH/MM3 (0-0.4); EOSINOPHIL % 2.4 % (0.0-4.0); HEMATOCRIT 28.6 % (39.0-51.0); LYMPH % 7.4 % (9.0-44.0); LYMPHOCYTE # 1.2 TH/MM3 (1.0-4.8); MEAN CELL VOLUME 95.6 FL (80.0-100.0); MEAN CORPUSCULAR HEMOGLOBIN 32.2 PG (27.0-34.0); MEAN CORPUSCULAR HGB CONC 33.6 % (32.0-36.0); MONO % 6.3 % (0.0-8.0); NEUT % 83.6 % (16.0-70.0); PLATELET COUNT 182 TH/MM3 (150-450); RED BLOOD COUNT 2.99 MIL/MM3 (4.50-5.90); RED CELL DISTRIBUTION WIDTH 12.4 % (11.6-17.2); WHITE BLOOD COUNT 16.1 TH/MM3 (4.0-11.0)
[2016-11-05 07:54] LABS: HEMO FLAGS DIFF FINAL
[2016-11-05 08:00] VITALS: BP 142/65; PULSE 71; PULSE 80; RESP 16; TEMP 97.8; O2SAT 94
[2016-11-05 08:08] LABS: POTASSIUM 3.4 MEQ/L (3.5-5.1)
[2016-11-05 08:12] LABS: BICARBONATE 20.8 MEQ/L (21.0-32.0)
[2016-11-05] MEDS: POTASSIUM CHLORIDE 10 MEQ CONTROLLED RELEASE TAB PO SCH ×2 (08:28→22:08)
[2016-11-05] MEDS: LISINOPRIL 5 MG TAB PO SCH (08:29)
[2016-11-05] MEDS: PRAVASTATIN SOD 40 MG TAB PO SCH (08:29)
[2016-11-05] MEDS: SODIUM CHLOR 0.9% 1000 ML INJ 1,000 ML IV SCH (08:29)
[2016-11-05] MEDS: SODIUM CHLORIDE 0.9% FLUSH 5 ML FLUSH FLUSH SCH ×2 (08:29→21:00)
[2016-11-05 12:00] VITALS: BP 137/67; PULSE 78; RESP 18; TEMP 97.7; O2SAT 95
--- NOTE | 2016-11-05 13:59 | EKG ---
Date Performed: 11/04/2016 Time Performed: 12:45:44 PTAGE: 89 years EKG: Sinus rhythm with frequent PVCs with 1st degree A-V block. Right bundle branch block Inferior/lateral ST-T change s are nonspecific Low QRS voltages in precordial leads Compared to previous tracing, the patient has developed frequent unifocal premature ventricular contractions. Abnormal ECG PREVIOUS TRACING : 12/01/2012 18.53 DOCTOR: Selma Flannery Interpretating Date/Time 11/05/2016 13:59:12
--- NOTE | 2016-11-05 15:06 | HHI.PR ---
Subjective Remarks Follow-up pneumonia, sepsis. Patient states that he feels very tired today. His daughter is at bedside and states that he has been more lethargic. Cough remains mild and nonproductive. No chest pain, nausea, vomiting. States that he feels overall very weak. Objective Vitals Vital Signs Date Time Temp Pulse Resp B/P Pulse Ox O2 Delivery O2 Flow Rate FiO2 11/05/16 12:00 97.7 78 18 137/67 95 11/05/16 08:00 71 11/05/16 08:00 97.8 80 16 142/65 94 11/05/16 04:00 97.8 78 18 141/81 96 11/05/16 00:00 98.3 61 18 128/50 93 11/04/16 20:00 99.4 54 19 153/71 94 11/04/16 20:00 91 11/04/16 16:00 97.0 91 18 158/92 94 I/O 11/04/16 11/04/16 11/04/16 11/05/16 11/05/16 11/05/16 07:00 15:00 23:00 07:00 15:00 23:00 Intake Total 343 ml 100 ml 1042 ml 880 ml Output Total 800 ml 1250 ml 400 ml Balance -457 ml 100 ml -208 ml 880 ml -400 ml Intake Oral 360 ml IV Total 343 ml 682 ml 880 ml Other 100 ml Output Urine Total 800 ml 1250 ml 400 ml # Bowel Movements 2 1 1 Result Diagram: 11/05/16 0647 11/05/16 0647 Imaging Last Impressions Chest X-Ray 11/02/162109 Signed Impressions: Service Date/Time: Wednesday, November 02, 2016 21:15 - CONCLUSION: Normal examination. Boston Bryant MD Abdomen/Pelvis CT 11/02/16 193 Signed Impressions: Service Date/Time: Wednesday, November 02, 2016 20:05 - CONCLUSION: 1. Mild gastric distention and fluid-filled esophagus. 2. No bowel obstruction. Boston Bryant MD Objective Remarks General: Elderly male in no acute distress. Heart: Regular rate and rhythm. No murmur. Lungs: Clear to auscultation bilaterally. No wheezes, rales, or rhonchi. Breathing is nonlabored. Abdomen: Soft, nontender, nondistended. Extremities: No lower extremity edema. Left upper and left lower extremity weakness. Psych: Alert and oriented. Procedures 11/04/16 EGD Urinary Catheter: No Vascular Central Line Catheter: No A/P Problem List: (1) Sepsis ICD Code: A41.9 Status: Acute (2) HCAP (healthcare-associated pneumonia) ICD Code: J18.9 Status: Acute (3) Coffee ground emesis ICD Code: K92.0 Status: Acute (4) Anemia ICD Code: D64.9 Status: Acute (5) Leukocytosis ICD Code: D72.829 Status: Acute (6) Prerenal azotemia ICD Code: R79.89 Status: Acute (7) Stage 3 chronic kidney disease ICD Code: N18.3 Status: Chronic (8) HTN (hypertension) ICD Code: I10 Status: Chronic Assessment and Plan 1. Sepsis: Source is pneumonia. Continue IV fluids, antibiotics. Blood cultures are negative so far. 2. Healthcare associated pneumonia: [facility] at a [facility]. Cough is productive. Chest x-ray showed no acute abnormality, but CT of the abdomen showed right basilar infiltrate. Patient also has leukocytosis, which continues to improve. Continue Zosyn, azithromycin. Sputum culture is pending. Influenza, Legionella, pneumococcal testing negative. 3. GI bleed: Patient had coffee-ground emesis. Hemoglobin has stabilized. Appreciate GI recommendations. Status post EGD. Patient found to have gastritis. He has been cleared for discharge by GI. Continue Protonix. 4. Chronic kidney disease stage III with acute worsening secondary to prerenal azotemia. Continue IV fluids. Monitor labs. BUN and creatinine are slightly improved today. 5. Hypertension: Continue lisinopril, amlodipine. 6. Coronary artery disease, peripheral vascular disease: Aspirin and Plavix on hold secondary to GI bleed. 7. Gout: Allopurinol on hold secondary to impaired renal function. 8. DVT prophylaxis: SCDs, LONNY starr. Chemical prophylaxis contraindicated secondary to GI bleed. 9. Weakness, fatigue: Continue PT. If symptoms improve, possible discharge tomorrow to SNF. 10. Mild hypokalemia: Supplement potassium. Discharge Planning Possible discharge back to SNF tomorrow. Mark Anthony Franklin MD Nov 05, 2016 15:06
[2016-11-05] MEDS ORDERED: POTASSIUM CHLORIDE 20 MEQ CONTROLLED RELEASE TAB PO ONE (15:15)
[2016-11-05 16:00] VITALS: BP 140/71; PULSE 79; RESP 18; TEMP 97.7; O2SAT 96
--- NOTE | 2016-11-05 18:02 | HHI.PR ---
Subjective Remarks I was made aware by MORA Bartholomew that he received call from tic room that patient had bigeminy. This was approximately 1735 hrs. I have reviewed telemetry which does show bigeminy. Patient does admit to palpitation type feeling for the past month. Denies any chest pain or acute worsening shortness of breath. I discussed with Dr. Franklin. EKG, echo, cardiology consult ordered. Objective Vitals Vital Signs Date Time Temp Pulse Resp B/P Pulse Ox O2 Delivery O2 Flow Rate FiO2 11/05/16 16:00 97.7 79 18 140/71 96 11/05/16 12:00 97.7 78 18 137/67 95 11/05/16 08:00 71 11/05/16 08:00 97.8 80 16 142/65 94 11/05/16 04:00 97.8 78 18 141/81 96 11/05/16 00:00 98.3 61 18 128/50 93 11/04/16 20:00 99.4 54 19 153/71 94 11/04/16 20:00 91 I/O 11/04/16 11/04/16 11/04/16 11/05/16 11/05/16 11/05/16 06:59 14:59 22:59 06:59 14:59 22:59 Intake Total 343 ml 100 ml 360 ml 1562 ml Output Total 800 ml 1250 ml 400 ml Balance -457 ml 100 ml -890 ml 1562 ml -400 ml Intake Oral 360 ml IV Total 343 ml 1562 ml Other 100 ml Output Urine Total 800 ml 1250 ml 400 ml # Bowel Movements 2 1 1 Result Diagram: 11/05/16 0647 11/05/1647 Objective Remarks CARDIO: HRRR RESP: RR normal Procedures 11/04/16 EGD A/P Problem List: (1) Sepsis ICD Code: A41.9 Status: Acute (2) HCAP (healthcare-associated pneumonia) ICD Code: J18.9 Status: Acute (3) Coffee ground emesis ICD Code: K92.0 Status: Acute (4) Anemia ICD Code: D64.9 Status: Acute (5) Leukocytosis ICD Code: D72.829 Status: Acute (6) Prerenal azotemia ICD Code: R79.89 Status: Acute (7) Stage 3 chronic kidney disease ICD Code: N18.3 Status: Chronic (8) HTN (hypertension) ICD Code: I10 Status: Chronic Hawa Wells Nov 05, 2016 18:01
[2016-11-05 20:00] VITALS: BP 157/77; PULSE 76; RESP 20; TEMP 98.6; O2SAT 94
[2016-11-05] MEDS: AZITHROMYCIN INJ 500 MG in SODIUM CHLOR 0.9% 250 ML INJ 250 ML IV SCH (22:08)
[2016-11-05] MEDS: TAMSULOSIN HCL 0.4 MG CAP PO SCH (22:08)
[2016-11-05] MEDS: traZODone HCL 50 MG TAB PO SCH (22:08)
[2016-11-06] VITALS (7 sets, daily range): BP systolic 128–162; BP diastolic 67–92; PULSE 63–90; RESP 20; TEMP 97–99.1; O2SAT 91–97
[2016-11-06] MEDS: PIPERACIL-TAZO 3.375 GM PREMIX 50 ML IV SCH ×4 (04:10→22:00)
[2016-11-06 06:59] LABS: AUTOMATED NEUTROPHIL # 14.1 TH/MM3 (1.8-7.7); BASOPHIL # 0.1 TH/MM3 (0-0.2); BASOPHIL % 0.3 % (0.0-2.0); EOSINOPHIL # 0.3 TH/MM3 (0-0.4); EOSINOPHIL % 1.5 % (0.0-4.0); HEMATOCRIT 28.8 % (39.0-51.0); LYMPHOCYTE # 1.4 TH/MM3 (1.0-4.8); MEAN CELL VOLUME 95.6 FL (80.0-100.0); MEAN CORPUSCULAR HEMOGLOBIN 32.2 PG (27.0-34.0); MEAN CORPUSCULAR HGB CONC 33.7 % (32.0-36.0); MONO % 6.8 % (0.0-8.0); NEUT % 83.4 % (16.0-70.0); PLATELET COUNT 196 TH/MM3 (150-450); POTASSIUM 3.3 MEQ/L (3.5-5.1); RED BLOOD COUNT 3.02 MIL/MM3 (4.50-5.90); RED CELL DISTRIBUTION WIDTH 12.4 % (11.6-17.2); WHITE BLOOD COUNT 17.1 TH/MM3 (4.0-11.0)
[2016-11-06 07:02] LABS: HEMO FLAGS AUTO DIFF
[2016-11-06 07:33] LABS: SCAN/DIFF AUTO DIFF CONFIRMED
[2016-11-06] MEDS: PRAVASTATIN SOD 40 MG TAB PO SCH (08:27)
[2016-11-06] MEDS: POTASSIUM CHLORIDE 10 MEQ CONTROLLED RELEASE TAB PO SCH ×2 (08:28→20:29)
[2016-11-06] MEDS: LISINOPRIL 5 MG TAB PO SCH (08:28)
[2016-11-06] MEDS: SODIUM CHLORIDE 0.9% FLUSH 5 ML FLUSH FLUSH SCH ×2 (08:29→20:45)
[2016-11-06 09:54] LABS: MAGNESIUM 2.1 MG/DL (1.5-2.5)
--- NOTE | 2016-11-06 10:20 | MB ---
cc: MARYANA LERMA DATE OF CONSULTATION: 11/06/2016 INDICATION Abnormal electrocardiogram. HISTORY OF PRESENT ILLNESS A 89-year-old gentleman who presented to the emergency department initially with black emesis, nausea. He had prior history of GI ulcer. Hemoglobin was slightly reduced. He underwent EGD with gastritis and started on Protonix. He also developed pneumonia and was given IV antibiotics. Apparently he has a history of coronary disease, peripheral vascular disease, on aspirin and Plavix, both on hold secondary to his GI bleed. He is not a great historian, most of his history is obtained from chart records. His electrocardiogram showed bigeminy. He has a baseline right bundle-branch block. He also had a 10 beat run of nonsustained ventricular tachycardia which is asymptomatic this morning. We were consulted for further recommendations. PAST MEDICAL HISTORY 1. Dimentia. 2. CVA. 3. Coronary disease. 4. PVD. 5. Atrial fibrillation. 6. Hyperlipidemia. 7. Hypertension. 8. Chronic kidney disease. 9. Gastroesophageal reflux disease. 10. Gout. 11. Prostate cancer. 12. Osteoarthritis. 13. Anemia. ALLERGIES None. MEDICATIONS Home medications: 1. Aspirin. 2. Iron. 3. Amlodipine. 4. Trazodone. 5. Pravastatin. 6. Clopidogrel. 7. Allopurinol. 8. Tamsulosin. 9. Lisinopril. 10. Baclofen. 11. DuoNeb. 12. Zofran. 13. Reglan. 14. Protonix. FAMILY HISTORY Denies any family history of early coronary artery disease, sudden cardiac . SOCIAL HISTORY Denies any alcohol, tobacco or drug use. REVIEW OF SYSTEMS A 12 point review of systems was performed and negative unless otherwise noted in history of present illness. PHYSICAL EXAMINATION VITAL SIGNS: Temperature 99, pulse 76, blood pressure 145/68 mmHg. GENERAL: Alert and oriented x3, in no acute distress. HEENT: Exam shows pupils are reactive to light and accommodation. Extraocular movements are intact. NECK: No elevation in jugular venous distension. No thyromegaly, lymphadenopathy, no carotid bruits. LUNGS: Clear to auscultation bilaterally. CARDIOVASCULAR: Regular rate and rhythm with ectopy, 1/6 systolic murmur. No rubs or gallops. ABDOMEN: Nontender, nondistended. Good bowel sounds. No hepatosplenomegaly. EXTREMITIES: No clubbing, cyanosis or edema. Good peripheral pulses. Cranial nerves intact. Motor and sensory grossly intact. LABORATORY DATA Sodium 143, potassium 3.3, BUN 17, creatinine is 1.7, hemoglobin is 9.7, WBC 17.1. EKG Electrocardiogram shows sinus rhythm, bigeminy, first-degree AV block, right bundle-branch block, nonspecific ST-T wave changes. ASSESSMENT 1. Abnormal EKG with bigeminy. 2. Nonsustained ventricular tachycardia 10 beats on telemetry. 3. History of coronary artery disease, PAD, unspecified. 4. Recent pneumonia. 5. Recent GI bleed with gastritis. PLAN The patient's baseline dementia and age, chronic kidney disease would preclude a more aggressive approach. Bigeminy is not really concerning. His nonsustained ventricular tachycardia is more concerning, but he was asymptomatic. We will obtain a 2-D echocardiogram, looking at his ejection fraction. Will also get a Lexiscan of rule out significant ischemia, although my threshold for anything invasive would be very high. Will add a low-dose beta juana. Will discontinue his ZACARIAS inhibitor to allow for blood pressure and given his chronic kidney disease. We will check electrolytes including thyroid, rule out other causes. If the Lexiscan is relatively unremarkable and echocardiogram shows normal ejection fraction, we will just beta block him and then he can follow up with an outpatient Holter monitor. MD CECILE Cochran/SVITLANA /9:31 AM /9:54 AM
[2016-11-06] MEDS: METOPROLOL TARTRATE 25 MG TAB PO SCH ×2 (10:28→20:29)
[2016-11-06] MEDS: PANTOPRAZOLE INJ 80 MG in SODIUM CHLORIDE 0.9% INJ 100 ML IV SCH ×2 (10:29→20:52)
--- NOTE | 2016-11-06 11:56 | EC ---
Study Study Date:11/06/2016 STUDY CONCLUSIONS SUMMARY - Left ventricle: The cavity size was normal. There was mild focal basal hypertrophy of the septum. Systolic function was normal. The estimated ejection fraction was in the range of 55% to 60%. Wall motion was normal; there were no regional wall motion abnormalities. - Mitral valve: Mild regurgitation. If LV function is below 40, please consider prescribing an ACEI or ARB or document rationale for non-use. PROCEDURE DATA STUDY STATUS: Elective. Procedure: Transthoracic echocardiography. Image quality was fair. Scanning was performed from the parasternal, apical, and subcostal acoustic windows. Study completion: The patient tolerated the procedure well. Transthoracic echocardiography. M-mode, complete 2D, complete spectral Doppler, and color Doppler. Patient status: Inpatient. CARDIAC ANATOMY LEFT VENTRICLE: The cavity size was normal. There was mild focal basal hypertrophy of the septum. Systolic function was normal. The estimated ejection fraction was in the range of 55% to 60%. Wall motion was normal; there were no regional wall motion abnormalities. AORTIC VALVE: Trileaflet; normal thickness leaflets. Doppler: Transvalvular velocity was within the normal range. There was no stenosis. No regurgitation. AORTA: Aortic root: The aortic root was normal in size. MITRAL VALVE: Structurally normal valve. Doppler: Transvalvular velocity was within the normal range. There was no evidence for stenosis. Mild regurgitation. LEFT ATRIUM: The atrium was normal in size. RIGHT VENTRICLE: The cavity size was normal. Wall thickness was normal. PULMONIC VALVE: Doppler: Transvalvular velocity was within the normal range. There was no evidence for stenosis. No regurgitation. TRICUSPID VALVE: Structurally normal valve. Doppler: Transvalvular velocity was within the normal range. No regurgitation. PULMONARY ARTERY: The main pulmonary artery was normal-sized. Systolic pressure was within the normal range. RIGHT ATRIUM: The atrium was normal in size. PERICARDIUM: There was no pericardial effusion. SYSTEMIC VEINS: Inferior vena cava: The vessel was normal in size. BASIC MEASUREMENTS ADULT Normal Left ventricle LV internal dimension, ED, chordal level, 44.8 mm 43-52 PLAX LV internal dimension, ES, chordal level, 34.5 mm 23-38 PLAX Fractional shortening, chordal level, PLAX *23 % >29 LV posterior wall thickness, ED 11.5 mm IVS/LVPW ratio, ED *1.35 <1.3 Ventricular septum Septal thickness, ED 15.5 mm Aorta Root diameter, ED 27 mm Left atrium Anterior-posterior dimension 36 mm Right ventricle RV internal dimension, ED, PLAX 34.4 mm 19-38 DOPPLER MEASUREMENTS ADULT Normal Main pulmonary artery Pressure, S 27 mm Hg =30 Mitral valve Peak E-wave velocity 48.9 cm/s Peak A-wave velocity 74.5 cm/s Peak E/A ratio 0.7 Tricuspid valve Regurgitant peak velocity 204 cm/s Peak RV-RA gradient, S 17 mm Hg Maximal regurgitant velocity 204 cm/s Systemic veins Estimated CVP 10 mm Hg Right ventricle RV pressure, S 27 mm Hg <30 LEGEND: Mean values are shown as u=mean value. Asterisk (*) taylor values outside specified normal range. Prepared and signed by Rona Knowles [id number]
--- NOTE | 2016-11-06 13:35 | EKG ---
Date Performed: 11/05/2016 Time Performed: 18:07:36 PTAGE: 89 years EKG: Sinus rhythm with bigeminal PVCs with borderline 1st degree A-V block Right bundle branch block Inferior/lateral ST-T changes are nonspecific Low QRS voltages in precordial leads Since previous tracing, no signific ant change noted Abnormal ECG PREVIOUS TRACING : 11/04/2016 12.45 DOCTOR: Selma Flannery Interpretating Date/Time 11/06/2016 13:31:20
[2016-11-06] MEDS ORDERED: POTASSIUM CL 40 MEQ/30 ML LIQ UDC PO ONE (16:30)
--- NOTE | 2016-11-06 16:41 | HHI.PR ---
Subjective Remarks Follow-up arrhythmia, pneumonia. Patient states that he feels better today. No cough, dyspnea, chest pain. Objective Vitals Vital Signs Date Time Temp Pulse Resp B/P Pulse Ox O2 Delivery O2 Flow Rate FiO2 11/06/16 15:59 97.1 80 20 138/76 97 11/06/16 12:00 97.0 63 20 128/67 96 11/06/16 08:00 99.1 76 20 145/68 95 11/06/16 06:46 77 11/06/16 04:00 98.3 80 20 160/85 92 11/06/16 00:00 98.9 80 20 162/81 91 11/05/16 20:00 76 11/05/16 20:00 98.6 76 20 157/77 94 I/O 11/05/16 11/05/16 11/05/16 11/06/16 11/06/16 11/06/16 06:59 14:59 22:59 06:59 14:59 22:59 Intake Total 1562 ml 1448 ml 771 ml 480 ml Output Total 400 ml 600 ml 850 ml Balance 1562 ml -400 ml 848 ml -79 ml 480 ml Intake Oral 720 ml 320 ml 480 ml IV Total 1562 ml 728 ml 451 ml Output Urine Total 400 ml 600 ml 850 ml # Voids 4 # Bowel Movements 1 1 0 1 Result Diagram: 11/06/16 0618 11/06/16 0618 Imaging Last Impressions Chest X-Ray 11/02/162109 Signed Impressions: Service Date/Time: Wednesday, November 02, 2016 21:15 - CONCLUSION: Normal examination. Boston Bryant MD Abdomen/Pelvis CT 11/02/16 193 Signed Impressions: Service Date/Time: Wednesday, November 02, 2016 20:05 - CONCLUSION: 1. Mild gastric distention and fluid-filled esophagus. 2. No bowel obstruction. Boston Bryant MD Objective Remarks General: Elderly male in no acute distress. Heart: Regular rate and rhythm. No murmur. Lungs: Clear to auscultation bilaterally. No wheezes, rales, or rhonchi. Breathing is nonlabored. Abdomen: Soft, nontender, nondistended. Extremities: No lower extremity edema. Left upper and left lower extremity weakness. Psych: Alert and oriented. Procedures 11/04/16 EGD Urinary Catheter: No Vascular Central Line Catheter: No A/P Problem List: (1) Sepsis ICD Code: A41.9 Status: Acute (2) HCAP (healthcare-associated pneumonia) ICD Code: J18.9 Status: Acute (3) Coffee ground emesis ICD Code: K92.0 Status: Acute (4) Anemia ICD Code: D64.9 Status: Acute (5) Leukocytosis ICD Code: D72.829 Status: Acute (6) Prerenal azotemia ICD Code: R79.89 Status: Acute (7) Stage 3 chronic kidney disease ICD Code: N18.3 Status: Chronic (8) HTN (hypertension) ICD Code: I10 Status: Chronic Assessment and Plan 1. Sepsis: Source is pneumonia. Continue IV fluids, antibiotics. Blood cultures are negative so far. 2. Healthcare associated pneumonia: Patient lives at a [facility]. Cough is productive. Chest x-ray showed no acute abnormality, but CT of the abdomen showed right basilar infiltrate. Patient also has leukocytosis. Continue Zosyn, azithromycin. Sputum culture is pending. Influenza, Legionella, pneumococcal testing negative. 3. GI bleed: Patient had coffee-ground emesis. Hemoglobin has stabilized. Appreciate GI recommendations. Status post EGD. Patient found to have gastritis. He has been cleared for discharge by GI. Continue Protonix. 4. Chronic kidney disease stage III with acute worsening secondary to prerenal azotemia. Continue IV fluids. Monitor labs. BUN and creatinine are stable. 5. Hypertension: Continue lisinopril, amlodipine. 6. Coronary artery disease, peripheral vascular disease: Aspirin and Plavix on hold secondary to GI bleed. 7. Gout: Allopurinol on hold secondary to impaired renal function. 8. DVT prophylaxis: SCDs, LONNY starr. Chemical prophylaxis contraindicated secondary to GI bleed. 9. Weakness, fatigue: Continue PT. 10. Hypokalemia: Supplement potassium. 11. Arrhythmia: Patient noted to have bigeminy. Also had a run of V. tach. Echocardiogram done area appreciate cardiology recommendations. Currently asymptomatic. Discharge Planning Plan for discharge to SNF when medically stable. Mark Anthony Franklin MD Nov 06, 2016 16:41
[2016-11-06] MEDS: traZODone HCL 50 MG TAB PO SCH (20:29)
[2016-11-06] MEDS: TAMSULOSIN HCL 0.4 MG CAP PO SCH (20:29)
[2016-11-06] MEDS: AZITHROMYCIN INJ 500 MG in SODIUM CHLOR 0.9% 250 ML INJ 250 ML IV SCH (20:33)
[2016-11-07] VITALS: BP 137/69; PULSE 71; RESP 20; TEMP 98.7; O2SAT 93
[2016-11-07 04:00] VITALS: BP 147/81; PULSE 84; RESP 20; TEMP 98.7; O2SAT 94
[2016-11-07] MEDS: PIPERACIL-TAZO 3.375 GM PREMIX 50 ML IV SCH ×3 (04:33→12:39)
[2016-11-07 04:53] VITALS: PULSE 76
[2016-11-07] MEDS: PANTOPRAZOLE INJ 80 MG in SODIUM CHLORIDE 0.9% INJ 100 ML IV SCH (05:04)
[2016-11-07 06:14] LABS: AUTOMATED NEUTROPHIL # 13.8 TH/MM3 (1.8-7.7); BASOPHIL # 0.1 TH/MM3 (0-0.2); BASOPHIL % 0.5 % (0.0-2.0); EOSINOPHIL # 0.3 TH/MM3 (0-0.4); EOSINOPHIL % 2.1 % (0.0-4.0); HEMATOCRIT 29.6 % (39.0-51.0); LYMPH % 7.4 % (9.0-44.0); LYMPHOCYTE # 1.2 TH/MM3 (1.0-4.8); MEAN CELL VOLUME 96.8 FL (80.0-100.0); MEAN CORPUSCULAR HEMOGLOBIN 32.1 PG (27.0-34.0); MEAN CORPUSCULAR HGB CONC 33.2 % (32.0-36.0); MONO % 5.2 % (0.0-8.0); NEUT % 84.8 % (16.0-70.0); PLATELET COUNT 213 TH/MM3 (150-450); RED BLOOD COUNT 3.06 MIL/MM3 (4.50-5.90); RED CELL DISTRIBUTION WIDTH 12.6 % (11.6-17.2); WHITE BLOOD COUNT 16.1 TH/MM3 (4.0-11.0)
[2016-11-07 06:15] LABS: HEMO FLAGS DIFF FINAL
[2016-11-07 06:25] LABS: POTASSIUM 3.5 MEQ/L (3.5-5.1)
[2016-11-07] MEDS ORDERED: REGADENOSON INJ 0.4 MG/5 ML SYR IV ONE (09:16)
[2016-11-07 10:37] VITALS: PULSE 77
--- NOTE | 2016-11-07 11:26 | RADHPO ---
EXAM DATE/TIME: 11/07/2016 09:41 CORRECTION Corrected on: November 09, 2016; CORRECTED: Added missing exam form information [facility] COMPARISON: No previous studies available for comparison. INDICATIONS : Nausea and vomiting. Abnormal EKG. Atrial fibrillation. DOSE: 25.6 mCi Tc99m Myoview at stress. 8.3 mCi Tc99m Myoview at rest. 0.4 mg Lexiscan STRESS SYMPTOMS: Headache. EJECTION FRACTION: 68% MEDICAL HISTORY : Hypercholesterolemia. Gastroesophageal reflux disease. Compression fracture. Stroke. Hypertension. PV D. Chronic renal disease. SURGICAL HISTORY : Left hip replacement. ENCOUNTER: Initial ACUITY: 1 day PAIN SCALE: 0/10 LOCATION: chest TECHNIQUE: The patient underwent pharmacologic stress with infusion of prescribed dose. Continuous ECG tracing was monitored during stress. Gated SPECT imaging was performed after stress and conventional SPECT i maging was performed at rest. The examination was performed on a SPECT/CT scanner, both attenuation and non-corrected datasets were reviewed. FINDINGS: DISTRIBUTION: The maximum perfused segment at stress is in the anterior wall. PERFUSION STUDY: The pattern of perfusion at stress is within normal limits. GATED STUDY: There is intact wall motion and thickening without hypokinetic or dyskinetic segments. CONCLUSION: 1. No reversible perfusion defects are identified to suggest stress-induced myocardial ischemia. RISK CATEGORY: Low (<1% Annual Mortality Rate) Boston Bryant MD on November 07, 2016 at 11:24 Board Certified Radiologist. This report was verified electronically. Student Services Director on November 09, 2016 at 11:31 Board Certified Radiologist. This report was verified electronically.
[2016-11-07] MEDS: METOPROLOL TARTRATE 25 MG TAB PO SCH (11:43)
[2016-11-07] MEDS: PRAVASTATIN SOD 40 MG TAB PO SCH (11:43)
[2016-11-07] MEDS: SODIUM CHLORIDE 0.9% FLUSH 5 ML FLUSH FLUSH SCH (11:43)
[2016-11-07] MEDS: POTASSIUM CHLORIDE 10 MEQ CONTROLLED RELEASE TAB PO SCH (11:43)
--- NOTE | 2016-11-07 11:50 | PD.CARD.PN ---
Subjective Subjective Remarks no complaints Objective Medications Active Medications Potassium Chloride (KCl 40 Meq/30 ml Liq) 40 meq ONCE ONCE PO Last administered on 11/06/16 16:36; Admin Dose 40 MEQ; Start 11/06/16 at 16:30; Stop 11/06/16 at 16:33; Status DC Regadenoson (Lexiscan Inj) 0.4 mg STK-MED ONCE IV Last administered on 11/07/16 09:16; Admin Dose 0.4 MG; Start 11/07/16 at 09:16; Stop 11/07/16 at 09:17; Status DC Vital Signs / I&O Vital Signs Date Time Temp Pulse Resp B/P Pulse Ox O2 Delivery O2 Flow Rate FiO2 11/07/16 10:37 77 11/07/16 04:53 76 11/07/16 04:00 98.7 84 20 147/81 94 11/07/16 00:00 98.7 71 20 137/69 93 11/06/16 20:00 98.7 90 20 154/92 95 11/06/16 15:59 97.1 80 20 138/76 97 11/06/16 12:00 97.0 63 20 128/67 96 I/O 11/06/16 11/06/16 11/06/16 11/07/16 11/07/16 11/07/16 07:00 15:00 23:00 07:00 15:00 23:00 Intake Total 771 ml 480 ml 420 ml 120 ml Output Total 850 ml 350 ml 450 ml Balance -79 ml 480 ml 70 ml -330 ml Intake Oral 320 ml 480 ml 420 ml 120 ml IV Total 451 ml Output Urine Total 850 ml 350 ml 450 ml # Voids 4 # Bowel Movements 0 1 1 0 Physical Exam GENERAL: SKIN: Warm and dry. HEAD: Normocephalic. EYES: No scleral icterus. No injection or drainage. NECK: Supple, trachea midline. No JVD or lymphadenopathy. CARDIOVASCULAR: Regular rate and rhythm without murmurs, gallops, or rubs. RESPIRATORY: Breath sounds equal bilaterally. No accessory muscle use. GASTROINTESTINAL: Abdomen soft, non-tender, nondistended. MUSCULOSKELETAL: No cyanosis, or edema. BACK: Nontender without obvious deformity. No CVA tenderness. Laboratory Laboratory Tests Test 11/07/16 05:25 White Blood Count 16.1 TH/MM3 Red Blood Count 3.06 MIL/MM3 Hemoglobin 9.8 GM/DL Hematocrit 29.6 % Mean Corpuscular Volume 96.8 FL Mean Corpuscular Hemoglobin 32.1 PG Mean Corpuscular Hemoglobin 33.2 % Concent Red Cell Distribution Width 12.6 % Platelet Count 213 TH/MM3 Mean Platelet Volume 8.3 FL Neutrophils (%) (Auto) 84.8 % Lymphocytes (%) (Auto) 7.4 % Monocytes (%) (Auto) 5.2 % Eosinophils (%) (Auto) 2.1 % Basophils (%) (Auto) 0.5 % Neutrophils # (Auto) 13.8 TH/MM3 Lymphocytes # (Auto) 1.2 TH/MM3 Monocytes # (Auto) 0.8 TH/MM3 Eosinophils # (Auto) 0.3 TH/MM3 Basophils # (Auto) 0.1 TH/MM3 CBC Comment DIFF FINAL Differential Comment Sodium Level 143 MEQ/L Potassium Level 3.5 MEQ/L Chloride Level 110 MEQ/L Carbon Dioxide Level 21.0 MEQ/L Anion Gap 12 MEQ/L Blood Urea Nitrogen 13 MG/DL Creatinine 1.70 MG/DL Estimat Glomerular Filtration 38 ML/MIN Rate Random Glucose 99 MG/DL Calcium Level 9.1 MG/DL Imaging Last Impressions Chest X-Ray 11/02/162109 Signed Impressions: Service Date/Time: Wednesday, November 02, 2016 21:15 - CONCLUSION: Normal examination. Boston Bryant MD Abdomen/Pelvis CT 11/02/16 193 Signed Impressions: Service Date/Time: Wednesday, November 02, 2016 20:05 - CONCLUSION: 1. Mild gastric distention and fluid-filled esophagus. 2. No bowel obstruction. Boston Bryant MD Assessment and Plan Assessment and Plan arrhythmia - titrate BB. lexiscan negative. EF normal. no further workup necessary. will sign off call with further questions Wesley Baltazar MD Nov 07, 2016 11:50
[2016-11-07 12:00] VITALS: BP 161/79; PULSE 95; RESP 20; TEMP 96.8; O2SAT 98
--- NOTE | 2016-11-07 14:16 | HHI.DS ---
Discharge Summary Admission Date Nov 03, 2016 at 07:53 Discharge Date: Nov 07, 2016 Admitting Diagnosis pneumonia (1) Sepsis ICD Code: A41.9 Diagnosis: Principal (2) HCAP (healthcare-associated pneumonia) ICD Code: J18.9 Diagnosis: Principal (3) Coffee ground emesis ICD Code: K92.0 Diagnosis: Principal (4) Anemia ICD Code: D64.9 Diagnosis: Principal (5) Leukocytosis ICD Code: D72.829 Diagnosis: Principal (6) Prerenal azotemia ICD Code: R79.89 Diagnosis: Principal (7) Hypokalemia ICD Code: E87.6 Diagnosis: Principal (8) Stage 3 chronic kidney disease ICD Code: N18.3 Diagnosis: Secondary (9) HTN (hypertension) ICD Code: I10 Diagnosis: Principal Procedures 11/04/16 EGD Brief History - From Admission 89-year-old male with history of dementia, anemia, CAD, CHF, remote h/ o A.Fib, hypertension, hyperlipidemia, CVA, PVD, CKD, BPH, arthritis, depression , gout, GERD, and h/o prostate cancer presents with complaint of cough. Patient was sent from shelter for evaluation as there was report by staff of 3 episodes of coffee-ground emesis per ED note. Patient states he has been coughing a lot with production of yellowish-white sputum. Admits to mild fever. Admits to nausea and vomiting stating he has had black vomitus and also states he had used red cough syrup. He denies any recent melena and states he has not had a bowel movement in the past few days. He denies any chest pain. Only admits to abdominal pain from coughing. Denies any dysuria or diarrhea. CBC/BMP: 11/07/16 0525 11/07/16 0525 Significant Findings Laboratory Tests Test 11/05/16 11/06/16 11/07/16 06:47 06:18 05:25 White Blood Count 16.1 TH/MM3 17.1 TH/MM3 16.1 TH/MM3 (4.0-11.0) (4.0-11.0) (4.0-11.0) Red Blood Count 2.99 MIL/MM3 3.02 MIL/MM3 3.06 MIL/MM3 (4.50-5.90) (4.50-5.90) (4.50-5.90) Hemoglobin 9.6 GM/DL 9.7 GM/DL 9.8 GM/DL (13.0-17.0) (13.0-17.0) (13.0-17.0) Hematocrit 28.6 % 28.8 % 29.6 % (39.0-51.0) (39.0-51.0) (39.0-51.0) Neutrophils (%) (Auto) 83.6 % 83.4 % 84.8 % (16.0-70.0) (16.0-70.0) (16.0-70.0) Lymphocytes (%) (Auto) 7.4 % 8.0 % 7.4 % (9.0-44.0) (9.0-44.0) (9.0-44.0) Neutrophils # (Auto) 13.5 TH/MM3 14.1 TH/MM3 13.8 TH/MM3 (1.8-7.7) (1.8-7.7) (1.8-7.7) Monocytes # (Auto) 1.0 TH/MM3 1.2 TH/MM3 (0-0.9) (0-0.9) Potassium Level 3.4 MEQ/L 3.3 MEQ/L (3.5-5.1) (3.5-5.1) Chloride Level 112 MEQ/L 110 MEQ/L 110 MEQ/L (98-107) (98-107) (98-107) Carbon Dioxide Level 20.8 MEQ/L (21.0-32.0) Blood Urea Nitrogen 24 MG/DL (7-18) Creatinine 1.70 MG/DL 1.70 MG/DL 1.70 MG/DL (0.60-1.30) (0.60-1.30) (0.60-1.30) Estimat Glomerular Filtration 38 ML/MIN (>89) 38 ML/MIN (>89) 38 ML/MIN (>89) Rate Imaging Last Impressions Chest X-Ray 11/02/160 Signed Impressions: Service Date/Time: Wednesday, November 02, 2016 21:15 - CONCLUSION: Normal examination. Boston Bryant MD Abdomen/Pelvis CT 11/02/161938 Signed Impressions: Service Date/Time: Wednesday, November 02, 2016 20:05 - CONCLUSION: 1. Mild gastric distention and fluid-filled esophagus. 2. No bowel obstruction. Boston Bryant MD PE at Discharge GENERAL: Pleasant happy well-nourished, well-developed patient in no apparent distress. SKIN: Warm and dry. HEAD: Atraumatic. Normocephalic. CARDIOVASCULAR: Regular rate and rhythm. RESPIRATORY: No accessory muscle use. Clear to auscultation. Breath sounds equal bilaterally. GASTROINTESTINAL: NABS. Abdomen soft, non-tender, nondistended. MUSCULOSKELETAL: No lower extremity edema. NEUROLOGICAL: Awake and alert. Motor grossly within normal limits. Normal speech. PSYCHIATRIC: Appropriate mood and affect; insight and judgment normal. Pt update on day of discharge Patient states that he feels "a little better". He denies any shortness of breath. His daughter states he is much improved with his cough. Hospital Course Patient presented from shelter with cough and coffee-ground emesis. Patient was found have sepsis due to pneumonia and he was treated for HCAP with azithromycin and Zosyn. Blood cultures were negative. Sputum culture with heavy growth of normal respiratory lulu. Influenza test negative. Leukocytosis has improved. Patient's cough has decreased he denies any shortness of breath. While hospitalized, the patient developed bigeminy noted on telemetry. He did admit to some palpitation type feelings states he had been experiencing this for one month. Echocardiogram was performed which only showed mild mitral valve regurgitation and mild focal basal hypertrophy of the septum, but patient has good EF. Patient was evaluated by cardiology and nuclear stress test was performed which is negative for ischemia; he was started on metoprolol. In regards to GI bleed, patient was started on a Protonix drip for coffee-ground emesis. Patient was Hemoccult positive and was evaluated by GI. He had an EGD performed which showed esophagitis and gastritis , but no active bleeding. Patient does take aspirin and Plavix as he has a history of coronary artery disease and previous CVA. These were temporarily held. Patient's hemoglobin has remained stable and he has not required blood transfusion. Patient has chronic kidney disease, but was noted to have prerenal azotemia which has resolved with IV hydration. Patient has improved and is stable for discharge. He is advised against using OTC NSAIDs although will remain on Plavix and aspirin as he is at high risk for stroke. He'll remain on Protonix for GI protection. Patient will [facility] to [facility] where he currently resides. Pt Condition on Discharge: Stable Discharge Disposition: Discharge to SNF Discharge Time: > 30 minutes Discharge Instructions DIET: Follow Instructions for: Heart Healthy Diet Activities you can perform: Regular-No Restrictions Follow up Referrals: SNF/[facility]/ - Today New Medications: Levofloxacin (Levaquin) 500 Mg Tab 500 MG PO Q48H Infection Days 6 Ref 0 TAB Metoprolol Tartrate (Metoprolol Tartrate) 25 Mg Tab 50 MG PO Q12HR prevent PVCs Days 30 TAB Continued Medications: Allopurinol (Allopurinol) 100 Mg Tab 100 MG PO DAILY Gout #[address] Ref [address] (Aspirin 81) 81 Mg Tabdr 81 MG PO DAILY Ref 0 TAB Baclofen (Baclofen) 10 Mg Tab 10 MG PO Q8HR PRN MUSCLE SPASM Ref 0 TAB Clopidogrel (Clopidogrel) 75 Mg Tab 75 MG PO DAILY Blood Clot Prevention #30 Ref 0 TAB Ferrous Sulfate (Ferrous Sulfate) 325 Mg Tab 325 MG PO DAILY Nutritional Supplement #30 Ref 0 TAB Ipratropium-Albuterol Neb (Duoneb) 0.5-2.5 Mg/3 Ml Neb 1 NEBULE INH Q6HR NEB PRN SOB/WHEEZING #120 Ref 0 NEBULE Lisinopril (Lisinopril) 5 Mg Tab 5 MG PO DAILY Blood Pressure Management #30 Ref 0 TAB Metoclopramide (Reglan) 5 Mg Tab 5 MG PO DIRECTED #120 Ref 0 TAB Ondansetron (Zofran) 4 Mg Tab 4 MG PO Q6HR PRN NAUSEA OR VOMITING Ref 0 TAB Pantoprazole (Pantoprazole) 40 Mg Tab 40 MG PO DAILY Reflux #30 Ref 0 TAB Potassium Chloride ER (Klor-Con 10) 10 Meq Tab 10 MEQ PO BID Electrolyte Replacement #60 Ref 0 TAB Pravastatin (Pravastatin) 40 Mg Tab 40 MG PO DAILY Cholesterol Management #30 Ref 0 TAB Tamsulosin (Tamsulosin) 0.4 Mg Cap 0.4 MG PO HS Manage Prostate Problems #30 Ref 0 CAP Trazodone (Trazodone) 50 Mg Tab 25 MG PO HS Control Depression #30 Ref 0 TAB Discontinued Medications: Amlodipine (Amlodipine) 10 Mg Tab 10 MG PO DAILY Blood Pressure Management #30 Ref 0 TAB Additional Information Written by Hawa Wells PA-C acting as scribe for Dr. Laughlin on 11/07/16 at 1350. The documentation accurately reflects the work and decisions performed face-to- face by sc Dr. Laughlin on 11/07/16 at 1350. Hawa Wells Nov 07, 2016 14:16
[2016-11-07] MEDS ORDERED: METO25TA3 PO (14:29)
[2016-11-07] MEDS ORDERED: LEVA500T PO (14:29)
[2016-11-07] MEDS ORDERED: METOPROLOL TARTRATE 25 MG TAB PO SCH (21:00)
== END 2016-11-07 16:24 | DRG 871 ==
LOC: PHED 18:12 → INTOOBSV 22:47 → PHEDA 22:47 → PH3B 23:40 → OBSVTOIN 11-03 07:53 → PH3B 11-04 23:02
PROVIDERS: ADMIT Family Medicine; ATTEND Family Medicine
PROC: 0DJ08ZZ Inspection of Upper Intestinal Tract, Via Natural or Artificial Opening Endoscopic (ICD-10-PCS; principal; 2016-11-04 14:30)
DX: A41.9 Sepsis, unspecified organism (principal); J18.9 Pneumonia, unspecified organism; I47.2 Ventricular tachycardia; I50.9 Heart failure, unspecified; I69.354 Hemiplegia and hemiparesis following cerebral infarction affecting left non-dominant side; F03.90 Unspecified dementia, unspecified severity, without behavioral disturbance, psychotic disturbance, mood disturbance, and anxiety; K92.2 Gastrointestinal hemorrhage, unspecified; G62.9 Polyneuropathy, unspecified; I73.9 Peripheral vascular disease, unspecified; F32.9 Major depressive disorder, single episode, unspecified; M19.90 Unspecified osteoarthritis, unspecified site; E78.00 Pure hypercholesterolemia, unspecified; I69.391 Dysphagia following cerebral infarction; R13.10 Dysphagia, unspecified; I25.10 Atherosclerotic heart disease of native coronary artery without angina pectoris; H91.90 Unspecified hearing loss, unspecified ear; K21.0 Gastro-esophageal reflux disease with esophagitis; M10.9 Gout, unspecified; N18.3 Chronic kidney disease, stage 3 (moderate); I12.9 Hypertensive chronic kidney disease with stage 1 through stage 4 chronic kidney disease, or unspecified chronic kidney disease; N40.0 Benign prostatic hyperplasia without lower urinary tract symptoms; Y95 Nosocomial condition; D64.9 Anemia, unspecified; Z85.46 Personal history of malignant neoplasm of prostate; E78.5 Hyperlipidemia, unspecified; Z96.642 Presence of left artificial hip joint; K59.00 Constipation, unspecified; Z87.11 Personal history of peptic ulcer disease; I45.10 Unspecified right bundle-branch block; K29.70 Gastritis, unspecified, without bleeding; R79.89 Other specified abnormal findings of blood chemistry; E87.6 Hypokalemia
CPT/HCPCS: 71020; 74176; 78452; 80048; 81001; 82150; 82272; 83605; 83690; 83735; 84443; 85014; 85018; 85025; 85610; 85730; 86850; 86900; 86901; 87040; 87070; 87205; 87449; 87804; 93005; 93017; 93306; 96365; 96367; A9502; C9113; G0378; J0456; J2543; J2785; J7030; J7050

== ENCOUNTER 2017-01-20 10:45 | Inpatient (IN) | payer MEDICARE, MEDICAID ==
[2017-01-20] VITALS (8 sets, daily range): BP systolic 144–192; BP diastolic 65–93; PULSE 60–95; RESP 18–28; TEMP 98.2–98.9; O2SAT 95–98
[~2017-01-20] VITALS: Ht 170.2 cm; Wt 66.3 kg
[~2017-01-20 10:45] MED LIST changes: -1-ME1LIQ PO; -ACET325 PO; -AGGR20025 PO; -ALBU0.086 INH; +ASPI-110 PO; -ATEN-102 PO; -AUGM500T7 OR; +BACL10TA PO; -CARB0.5D16 EACH EYE; +CLOP75TA PO; -ENOX40P SQ; +FERR325T PO; +IPRASOL INH; -KPHOS250 PO; -LACT PO; +LEVA500T PO; +LISI-519 PO; -LORTA5 PO; -MEDR4PAK3 PO; +METO25TA3 PO; +PANT40TA3 PO; +POTA-243 PO; -POTA20PA PO; -PRAV40TA PO; +PRAV40TA2 PO; +REGL5TAB PO; +TAMS0.4C4 PO; -TAMS0.4C67 PO; -TEMA7.5C9 PO; +TRAZ50TA12 PO; +ZOFR4TAB PO
[2017-01-20] MEDS ORDERED: PIPERACIL-TAZO 4.5 GM PREMIX 100 ML IV STA (10:59)
[2017-01-20] MEDS ORDERED: VANCOMYCIN INJ 1,000 MG in SODIUM CHLOR 0.9% 250 ML INJ 250 ML IV STA (10:59)
[2017-01-20 11:24] LABS: BASOPHIL # 0.1 TH/MM3 (0-0.2); BASOPHIL % 0.5 % (0.0-2.0); EOSINOPHIL # 0.1 TH/MM3 (0-0.4); EOSINOPHIL % 0.5 % (0.0-4.0); HEMATOCRIT 37.7 % (39.0-51.0); HEMO FLAGS DIFF FINAL; LYMPH % 8.7 % (9.0-44.0); LYMPHOCYTE # 1.2 TH/MM3 (1.0-4.8); MEAN CELL VOLUME 92.6 FL (80.0-100.0); MEAN CORPUSCULAR HGB CONC 33.5 % (32.0-36.0); MONO % 3.5 % (0.0-8.0); NEUT % 86.8 % (16.0-70.0); PLATELET COUNT 184 TH/MM3 (150-450); RED BLOOD COUNT 4.06 MIL/MM3 (4.50-5.90); WHITE BLOOD COUNT 13.9 TH/MM3 (4.0-11.0)
[2017-01-20 11:30] LABS: APTT (PATIENT) 23.1 SEC (24.3-30.1); PROTHROMBIN TIME - PATIENT 11.2 SEC (9.8-11.6)
--- NOTE | 2017-01-20 11:31 | PD ---
HPI Chief Complaint: Respiratory Symptoms Time Seen by Provider: 10:52 Travel History International Travel<30 days: No Contact w/Intl Traveler<30days: No Traveled to known affect area: No History of Present Illness HPI 89-year-old male with history of dementia, CAD/CHF, previous CVA with left- sided hemiplegia, HTN, HLD here from his care facility for respiratory difficulties. Her care facility staff patient seems to be having more labored breathing. Unknown duration. Patient himself has dementia and does not know why he is here but denies any complaints at this time. No pain and he does not feel short of breath. No reported fevers or chills. Patient was hospitalized here in October for healthcare associated pneumonia. Remainder of the history is limited due to his dementia and lack of information from shelter staff. PFSH Past Medical History Anemia: Yes Arthritis: Yes (OA) Depression: Yes Heart Rhythm Problems: Yes (1974 ) Cancer: Yes (Prostate) Cardiovascular Problems: Yes (PVD) High Cholesterol: Yes Congestive Heart Failure: Yes Cerebrovascular Accident: Yes (Lt. sided deficit, dysphagia) Coronary Artery Disease: Yes Dementia: Yes Diminished Hearing: Yes Endocrine: No GERD: Yes Gout: Yes Genitourinary: Yes (BPH, CKD) Headaches: Yes Hypertension: Yes Immune Disorder: No Implanted Vascular Access Dvce: Yes Musculoskeletal: Yes Neurologic: Yes (Neuropathy ) Psychiatric: Yes Reproductive: No Respiratory: No Immunizations Current: Yes Radiation Therapy: Yes (Prostate) Tetanus Vaccination: Unknown PNEUMOCCOCAL Vaccine (Year): 1 Past Surgical History Eye Surgery: Yes (BL cataracts) Joint Replacement: Yes (Lt. hip) Social History Alcohol Use: Yes (Beer few times a week ) Tobacco Use: No Substance Use: No Allergies-Medications (Allergen,Severity, Reaction): Coded Allergies: No Known Allergies (Verified , 11/02/16) Reported Meds & Prescriptions Reported Meds & Active Scripts Active Metoprolol Tartrate 25 Mg Tab 50 Mg PO Q12HR 30 Days Reported Atorvastatin (Atorvastatin Calcium) 20 Mg Tab 20 Mg PO HS Pantoprazole (Pantoprazole Sodium) 20 Mg Tab 20 Mg PO DAILY Aspirin 81 (Aspirin) 81 Mg Tabdr 81 Mg PO DAILY Ferrous Sulfate 325 Mg Tab 325 Mg PO TID Take with meals Klor-Con 10 (Potassium Chloride) 10 Meq Tab 10 Meq PO BID Trazodone (Trazodone HCl) 50 Mg Tab 25 Mg PO HS Clopidogrel (Clopidogrel Bisulfate) 75 Mg Tab 75 Mg PO DAILY Allopurinol 100 Mg Tab 100 Mg PO DAILY Tamsulosin (Tamsulosin HCl) 0.4 Mg Cap 0.4 Mg PO HS Lisinopril 5 Mg Tab 5 Mg PO DAILY Zofran (Ondansetron HCl) 4 Mg Tab 4 Mg PO Q6HR PRN Reglan (Metoclopramide HCl) 5 Mg Tab 5 Mg PO TID With meals Review of Systems ROS Limitations: Poor Historian (dementia) Physical Exam Exam Limitations: Poor Historian Narrative GENERAL: Elderly male in no acute distress SKIN: Focused skin exam warm dry, ecchymosis to the left hand. HEAD: Normocephalic. EYES: Pupils equal and round. No scleral icterus. No injection or drainage. ENT: Bilateral hearing aides. No nasal bleeding or discharge. Mucous membranes dry NECK: Supple CARDIOVASCULAR: Regular rate and rhythm. No murmur appreciated. RESPIRATORY: Mild respiratory distress with tachypnea and shallow breathing, decreased throughout particularly in the bases GASTROINTESTINAL: Abdomen soft, non-tender, nondistended. MUSCULOSKELETAL: Contractures NEUROLOGICAL: Awake and alert to self, knows he's in a hospital but does not know one. Not oriented to date. Baseline left hemiplegia. Normal speech. PSYCHIATRIC: Deferred given dementia Data Data Last Documented VS Vital Signs Date Time Temp Pulse Resp B/P Pulse Ox O2 Delivery O2 Flow Rate FiO2 01/20/17 11:47 65 24 152/82 96 Nasal Cannula 2 01/20/17 10:51 98.9 Orders Electrocardiogram (01/20/17 10:59) Complete Blood Count With Diff (01/20/17 10:59) Comprehensive Metabolic Panel (01/20/17 10:59) Prothrombin Time / Inr (Pt) (01/20/17 10:59) Act Partial Throm Time (Ptt) (01/20/17 10:59) Lactic Acid Sepsis Protocol (01/20/17 10:59) Lipase (01/20/17 10:59) Troponin I (01/20/17 10:59) Urinalysis - C+S If Indicated (01/20/17 10:59) Blood Culture (01/20/17 10:59) Chest, Single Ap (01/20/17 10:59) Ecg Monitoring (01/20/17 10:59) Iv Access Insert/Monitor (01/20/17 10:59) Oximetry (01/20/17 10:59) Vancomycin Inj (Vancomycin Inj) (01/20/17 10:59) Piperacil-Tazo 4.5 Gm Premix (Zosyn 4.5 (01/20/17 10:59) Sodium Chlor 0.9% 1000 Ml Inj (Ns 1000 M (01/20/17 11:45) Admit Order (Ed Use Only) (01/20/17 13:05) Labs Laboratory Tests Test 01/20/17 01/20/17 11:00 11:55 White Blood Count 13.9 TH/MM3 Red Blood Count 4.06 MIL/MM3 Hemoglobin 12.6 GM/DL Hematocrit 37.7 % Mean Corpuscular Volume 92.6 FL Mean Corpuscular Hemoglobin 31.0 PG Mean Corpuscular Hemoglobin 33.5 % Concent Red Cell Distribution Width 14.0 % Platelet Count 184 TH/MM3 Mean Platelet Volume 8.4 FL Neutrophils (%) (Auto) 86.8 % Lymphocytes (%) (Auto) 8.7 % Monocytes (%) (Auto) 3.5 % Eosinophils (%) (Auto) 0.5 % Basophils (%) (Auto) 0.5 % Neutrophils # (Auto) 12.0 TH/MM3 Lymphocytes # (Auto) 1.2 TH/MM3 Monocytes # (Auto) 0.5 TH/MM3 Eosinophils # (Auto) 0.1 TH/MM3 Basophils # (Auto) 0.1 TH/MM3 CBC Comment DIFF FINAL Differential Comment Prothrombin Time 11.2 SEC Prothromb Time International 1.0 RATIO Ratio Activated Partial 23.1 SEC Thromboplast Time Sodium Level 139 MEQ/L Potassium Level 3.7 MEQ/L Chloride Level 105 MEQ/L Carbon Dioxide Level 24.7 MEQ/L Anion Gap 9 MEQ/L Blood Urea Nitrogen 16 MG/DL Creatinine 1.76 MG/DL Estimat Glomerular Filtration 37 ML/MIN Rate Random Glucose 112 MG/DL Lactic Acid Level 1.2 mmol/L Calcium Level 9.1 MG/DL Total Bilirubin 0.6 MG/DL Aspartate Amino Transf 14 U/L (AST/SGOT) Alanine Aminotransferase 20 U/L (ALT/SGPT) Alkaline Phosphatase 133 U/L Troponin I 0.05 NG/ML Total Protein 7.6 GM/DL Albumin 3.7 GM/DL Lipase 102 U/L Urine Color LIGHT-YELLOW Urine Turbidity CLEAR Urine pH 6.5 Urine Specific [place] 1.009 Urine Protein 30 mg/dL Urine Glucose (UA) NEG mg/dL Urine Ketones NEG mg/dL Urine Occult Blood NEG Urine Nitrite NEG Urine Bilirubin NEG Urine Urobilinogen LESS THAN 2.0 MG/DL Urine Leukocyte Esterase NEG Urine RBC LESS THAN 1 /hpf Urine WBC 1 /hpf Urine Squamous Epithelial <1 /hpf Cells Urine Hyaline Casts 1 /lpf Urine Mucus FEW /lpf Microscopic Urinalysis Comment CATH-CULT NOT IND MDM Medical Decision Making Medical Screen Exam Complete: Yes Emergency Medical Condition: Yes Medical Record Reviewed: Yes Differential Diagnosis 89-year-old male with history of dementia, CAD/CHF, previous CVA with left- sided hemiplegia, HTN, HLD here from his care facility for respiratory difficulties. Differential includes pneumonia, symptomatic anemia, arrhythmia, ACS, UTI, sepsis. Narrative Course Patient placed on monitor, IV established and blood obtained. Given 1 L normal saline bolus, empirically treated with vancomycin and Zosyn. Twelve-lead EKG shows right bundle branch block but no notable ST abnormalities, normal intervals. Portal chest x-ray obtained that by my read shows no acute abnormalities. CBC, CMP, lipase, coags, lactate, troponin, urinalysis, blood cultures notable for WBC 13.9 hemoglobin 12.6, creatinine 1.76. Lactate normal. Urinalysis negative. Patient will be admitted for further management, rule out sepsis, pneumonia. Critical Care Narrative Aggregate critical care time was 35 minutes. Time to perform other separately billable procedures was not included in the critical care time. My time did not include minutes spent treating any other patients simultaneously or on activities that did not directly contribute to the patient's treatment. The services I provided to this patient were to treat and/or prevent clinically significant deterioration that could result in: Sepsis, cardiopulmonary decompensation, , disability I provided critical care services requiring my management, as noted below: Chart data review, documentation time, medication orders and management, vital sign assessments/reviewing monitor data, ordering and reviewing lab tests, ordering and interpreting/reviewing x-rays and diagnostic studies, care of the patient and discussion of the patient with the admitting physicians. Sepsis Criteria SIRS Criteria (2 or more): Heart rate over 90, RR > 20 or PaCO2 < 32, WBC > 40171, < 4000 or > 10% bands Sepsis Criteria (SIRS+source): Infect source susp/known Diagnosis Primary Impression: Sepsis Qualified Code: A41.9 - Sepsis, due to unspecified organism Additional Impressions: HCAP (healthcare-associated pneumonia) Shortness of breath Admitting Information Admitting Physician Requests: it Krysta Zuniga MD Jan 20, 2017 11:31
[2017-01-20] MEDS ORDERED: PANT20TA2 PO (11:33)
[2017-01-20] MEDS ORDERED: ATOR20TA15 PO (11:33)
[2017-01-20 11:35] LABS: ANION GAP 9 MEQ/L (5-15); AST (GOT) 14 U/L (15-37); BICARBONATE 24.7 MEQ/L (21.0-32.0); BLOOD UREA NITROGEN 16 MG/DL (7-18); CHLORIDE 105 MEQ/L (98-107); GLOMERULAR FILTRATION RATE 37 ML/MIN (>89); POTASSIUM 3.7 MEQ/L (3.5-5.1); SODIUM (NA) 139 MEQ/L (136-145)
[2017-01-20 11:40] LABS: ALKALINE PHOSPHATASE 133 U/L (45-117); ALT (GPT) 20 U/L (12-78); TOTAL BILIRUBIN ADULT 0.6 MG/DL (0.2-1.0)
--- NOTE | 2017-01-20 11:40 | RADRPT ---
EXAM DATE/TIME: 01/20/2017 11:09 [facility] COMPARISON: CHEST PA & LAT, November 02, 2016, 21:15. CHEST SINGLE AP, December 05, 2012, 4:50. INDICATIONS : Short of breath MEDICAL HISTORY : Unobtainable SURGICAL HISTORY : Unobtainable ENCOUNTER: Initial ACUITY: 1 day PAIN SCORE: Non-responsive. LOCATION: Bilateral chest FINDINGS: The lungs are clear. The heart is minimally enlarged. The pulmonary vascularity is normal. There is n o evidence for infiltrate or failure. The portion of the bony skeleton visualized is unremarkable. CONCLUSION: Compensated cardiomegaly otherwise negative. Mick Casanova MD FACR on January 20, 2017 at 11:36 Board Certified Radiologist. This report was verified electronically.
[2017-01-20] MEDS ORDERED: SODIUM CHLOR 0.9% 1000 ML INJ 1,000 ML IV ONE (11:45)
[2017-01-20 12:19] LABS: BLOOD, URINE NEG (NEG); COMMENT (UR) CATH-CULT NOT IND; CULTURE IF INDICATED CATH CULTURE NOT IND; GLUCOSE,URINE NEG (NEG); HYALINE CAST, URINE 1 /lpf (RARE); KETONE, URINE NEG (NEG); MUCUS URINE FEW /lpf (OCC); NITRITE,URINE NEG (NEG); PH, URINE 6.5 (5.0-8.5); SQUAMOUS EPITHELIAL CELL URINE <1 /hpf (0-5); URINE COLOR LIGHT-YELLOW (YELLW/STRAW)
[2017-01-20] MEDS ORDERED: ACETAMINOPHEN 325 MG TAB PO PRN (13:45)
[2017-01-20] MEDS ORDERED: SODIUM CHLORIDE 0.9% FLUSH 5 ML FLUSH FLUSH PRN (13:45)
[2017-01-20] MEDS ORDERED: LORazepam 2 MG/ML VIAL IVS PRN (13:45)
[2017-01-20] MEDS: SODIUM CHLOR 0.9% 1000 ML INJ 1,000 ML IV SCH (13:56)
[2017-01-20] MEDS ORDERED: RESP: ALBUTEROL 2.5 MG/3 ML NEB (PRN) INH (14:00)
[2017-01-20] MEDS ORDERED: Vancomycin Consult Pharmacy XX SCH (14:30)
[2017-01-20] MEDS ORDERED: ENOXAPARIN SODIUM 30 MG/0.3 ML SYRINGE SQ SCH (15:00)
[2017-01-20] MEDS: ASPIRIN EC 81 MG TABEC PO SCH (15:50)
[2017-01-20] MEDS: CLOPIDOGREL 75 MG TAB PO SCH (15:50)
[2017-01-20] MEDS: predniSONE 20 MG TAB PO SCH (15:50)
--- NOTE | 2017-01-20 16:01 | EKG ---
Date Performed: 01/20/2017 Time Performed: 11:05:12 PTAGE: 89 years EKG: Sinus rhythm Borderline first degree AV block RIGHT BUNDLE BRANCH BLOCK ABNORMAL ECG NO PREVIOUS TRACING DOCTOR: Everton Li Interpretating Date/Time 01/20/2017 16:00:07
[2017-01-20] MEDS: RESP: ALBUTEROL 2.5 MG/IPRATROPIUM 0.5 MG NEB (SCH) INH ×2 (16:25→21:04)
--- NOTE | 2017-01-20 16:52 | HHI.HP ---
HPI Service Family Medicine Primary Care Physician Johnny Dong MD Admission Diagnosis sepsis, pneumonia Diagnoses: International Travel<30 Days: No Contact w/Intl Traveler<30days: No Known Affected Area: No History of Present Illness Nic Patel is a very pleasant 89-year-old male, with a past medical history of CVA with left-sided weakness, coronary artery disease, hyperlipidemia, hypertension, hospital acquired pneumonia in November 2016, prostate cancer status post radiation, GI bleed, ventricular tachycardia nonsustained, bigmeny, chronic kidney disease, anemia, and hypokalemia, presenting from [facility], after the nurses noticed labored breathing, lethargy, and desaturations to 89% at rest. They also noted that his blood pressure was elevated at 180/90, and he was tachycardic to 100 bpm. Tawanna from the custodial, states that a son-in-law that was visiting had the stomach flu, however the patient has not been having any diarrhea. The daughter , Robert, says that approximately one week ago her father was vomiting after meals. HPI: On exam, the patient is alert and oriented to person, place, and year. He is able to tell me his 4 daughters names. He denies any current symptoms, such as cough, shortness of breath, or chest pain. He denies any blood in his stool , or diarrhea. He denies any abdominal pain. He denies any headaches, or changes in his vision. (Venancio Schofield MD R2) Review of Systems Other As per HPI. (Venancio Schofield MD R2) Past Family Social History Past Medical History Medical history is obtained primarily from EMR as patient is not completely reliable. Dementia GI bleed CVA with left-sided deficits Coronary artery disease PVD Atrial fibrillation 1974 Hyperlipidemia Hypertension CKD BPH GERD Gout Prostate cancer s/p radiation therapy Osteoarthritis Anemia Past Surgical History Left hip replacement Bilateral cataract surgery (Venancio Schofield MD R2) Allergies: Coded Allergies: No Known Allergies (Verified , 11/02/16) Family History Father of pneumonia. Social History Denies cigarette smoking. Admits to drinking very little alcohol; occasional beer. (Venancio Schofield MD R2) Physical Exam Vital Signs Vital Signs Date Time Temp Pulse Resp B/P Pulse Ox O2 Delivery O2 Flow Rate FiO2 01/20/17 16:25 98 Nasal Cannula 2.00 01/20/17 14:39 84 20 149/77 99 01/20/17 13:54 96 Nasal Cannula 2.00 01/20/17 11:47 65 24 152/82 96 Nasal Cannula 2 01/20/17 11:01 96 Nasal Cannula 2 01/20/17 10:51 98.9 95 28 192/93 95 Physical Exam GENERAL: Frail appearing. Using accessory muscle to breath. RR 24. SKIN: No rashes, ecchymoses or lesions. Cool and dry. HEAD: Atraumatic. CN intact. EYES: Pupils equal round and reactive. ENT: Nose without bleeding, purulent drainage or septal hematoma. NECK: Trachea midline. No JVD or lymphadenopathy. CARDIOVASCULAR: Faint heart sounds, s1 and s2 appreciated. Faint 1/6 ejection murmur at left sternal border. RESPIRATORY: Clear to auscultation. Poor inspiratory effort. GASTROINTESTINAL: Abdomen soft, slightly tender over umbilicus. No masses appreciated. MUSCULOSKELETAL: Extremities without clubbing, cyanosis, or edema. No joint tenderness, effusion, or edema noted. No calf tenderness. Negative Homans sign bilaterally. NEUROLOGICAL: Awake and alert. 2/5 strength left lower ext, 4/5 semiconductor wafers marker strength of left hand, sensation intact throughout. Laboratory Laboratory Tests Test 01/20/17 01/20/17 01/20/17 11:00 11:55 15:20 White Blood Count 13.9 Red Blood Count 4.06 Hemoglobin 12.6 Hematocrit 37.7 Mean Corpuscular Volume 92.6 Mean Corpuscular Hemoglobin 31.0 Mean Corpuscular Hemoglobin 33.5 Concent Red Cell Distribution Width 14.0 Platelet Count 184 Mean Platelet Volume 8.4 Neutrophils (%) (Auto) 86.8 Lymphocytes (%) (Auto) 8.7 Monocytes (%) (Auto) 3.5 Eosinophils (%) (Auto) 0.5 Basophils (%) (Auto) 0.5 Neutrophils # (Auto) 12.0 Lymphocytes # (Auto) 1.2 Monocytes # (Auto) 0.5 Eosinophils # (Auto) 0.1 Basophils # (Auto) 0.1 CBC Comment DIFF FINAL Differential Comment Erythrocyte Sedimentation Rate 29 Prothrombin Time 11.2 Prothromb Time International 1.0 Ratio Activated Partial 23.1 Thromboplast Time Sodium Level 139 Potassium Level 3.7 Chloride Level 105 Carbon Dioxide Level 24.7 Anion Gap 9 Blood Urea Nitrogen 16 Creatinine 1.76 Estimat Glomerular Filtration 37 Rate Random Glucose 112 Lactic Acid Level 1.2 Calcium Level 9.1 Total Bilirubin 0.6 Aspartate Amino Transf 14 (AST/SGOT) Alanine Aminotransferase 20 (ALT/SGPT) Alkaline Phosphatase 133 Troponin I 0.05 LESS THAN 0.02 Total Protein 7.6 Albumin 3.7 Lipase 102 96 Urine Color LIGHT-YELLOW Urine Turbidity CLEAR Urine pH 6.5 Urine Specific [place] 1.009 Urine Protein 30 Urine Glucose (UA) NEG Urine Ketones NEG Urine Occult Blood NEG Urine Nitrite NEG Urine Bilirubin NEG Urine Urobilinogen LESS THAN 2.0 Urine Leukocyte Esterase NEG Urine RBC LESS THAN 1 Urine WBC 1 Urine Squamous Epithelial <1 Cells Urine Hyaline Casts 1 Urine Mucus FEW Microscopic Urinalysis Comment CATH-CULT NOT IND Date/Time Procedure Status Source Growth 01/20/17 14:00 Influenza Types A,B Antigen (MAGO) - Final Complete Nasal Washing NEGATIVE FOR FLU A AND B ANTIGEN.... 01/20/17 11:00 Aerobic Blood Culture Received Blood Peripheral Pending 01/20/17 11:00 Anaerobic Blood Culture Received Blood Peripheral Pending (Venancio Schofield MD R2) Result Diagram: 01/20/17 1100 01/20/17 1100 Imaging Last Impressions Chest X-Ray 01/20/17 1059 Signed Impressions: Service Date/Time: Friday, January 20, 2017 11:09 - CONCLUSION: Compensated cardiomegaly otherwise negative. Mick Casanova MD FACR (Venancio Schofield MD R2) Septic Shock Reassessment Heart: Murmur Lungs: Clear Skin: Warm Peripheral Pulses: Weak Right Radial Weak Left Radial Capillary Refill: Sluggish (Venancio Schofield MD R2) Assessment and Plan Assessment and Plan Mr. Patel is a very pleasant 89-year-old male, who presented to the [facility] emergency room with lethargy, labored respirations, and desaturations to 89%. A workup in the emergency room, showed a slight leukocytosis of 13,000, cardiomegaly on chest x-ray without consolidations, and a UA that was within normal limits. He was admitted for sepsis, given his leukocytosis, tachypnea, tachycardia, and AMS. Problem # 1: Sepsis Tachycardia 95, Resp Rate > 20 (30), WBC > 12,000 (13,000), and probable source (pneumonia, GI, or bacteremia). Lactic acid WNL at 1.2. Chest Xray significant for cardiomegaly, but no consolidations. UA negative for signs of infection. [employer] ABX to cover for HAP -Zosyn 3.375 q 6 given renal impairment 01/20/17-- -Vancomycin as dosed by pharmacy 01/20/17-- IVF at 100 ml/hr NS, s/p 1 L in ED Influenza A & B negative Blood cultures x 2 Urine legionella and strep antigens Prednisone 40 mg daily Breathing treatment (duonebs q 6 hours scheduled). Problem # 2: Previous GI bleed PPI 40 mg by mouth daily. Check Hemoccult stool. Monitor H&H Problem #3: Dementia AAO to place, year, and person. Continue to monitor. Problem # 4: CKD CR on admission was 1.76, at his baseline on prior admission. Continue with IVF , and avoid nephrotoxic drugs. Monitor for signs of obstruction given previous prostate cancer. Monitor I&Os. Problem #5: Bigemy and V. tach on previous admission Electrolytes WNL on admission. K 3.7, Sodium 139. Check Mag and Phos. Replete as necessary. Cardiac telemetry. Previously evaluated by Dr. Baltazar. Nuc stress showed no signs of ischemia in Nov 2016. ECHO during the same admission showed: Mild mitral valve regurgitation, and an EF of 55-60%. Problem #6: Debility Would consider palliative care if continuing to decline. Problem #7: Hypertension 192/93 on admission Metoprolol 50 po q 12 hydralazine 10 mg PO systolic > 160, diastolic > 90. Problem #8: Hx of Prostate Cancer Continue tamulosin 0.4 mg daily. Problem #9: Hx of CVA with Left sided weakness Continue with ASA, plavix. Problem #10: FEN Fluids: 100 ml/hr NS Electrolytes: Recheck BMP in AM Nutrition: Reg basic diet DVT ppx: Lovenox 30 units q 24 hours, monitor for signs of bleeding. wdw Dr. Michel. (Venancio Schofield MD R2) Attending Attestation THIS CASE WAS DISCUSSED WITH THE RESIDENT PHYSICIANS. I HAVE REVIEWED THE RECORD AND AGREE WITH THE ABOVE NOTE AND PLAN OF CARE WAS DISCUSSED. I HAVE AUTHORIZED THE ORDER FOR ADMISSION TO AN IN-PATIENT STATUS. (Ryder Michel MD) Problem List: (1) HTN (hypertension) Status: Chronic (2) Leukocytosis Status: Acute (3) Sepsis Status: Acute (4) HCAP (healthcare-associated pneumonia) Status: Acute (5) Hx of ventricular tachycardia Status: Acute (6) History of GI bleed Status: Acute (7) CKD (chronic kidney disease) Status: Acute (8) Debility Status: Acute (9) Shortness of breath Status: Acute (Venancio Schofield MD R2) Physician Certification 2 Midnight Certification Type: Admission for Inpatient Services Order for Inpatient Services The services are ordered in accordance with Medicare regulations or non- Medicare payer requirements, as applicable. In the case of services not specified as inpatient-only, they are appropriately provided as inpatient services in accordance with the 2-midnight benchmark. Estimated LOS (days): 3 3 days is the estimated time the patient will need to remain in the hospital, assuming treatment plan goals are met and no additional complications. Post-Hospital Plan: Home (Venancio Schofield MD R2) Problem Qualifiers (1) HTN (hypertension): Qualified Code: I10 - Essential hypertension (2) Sepsis: Qualified Code: A41.9 - Sepsis, due to unspecified organism Venancio Schofield MD R2 Jan 20, 2017 16:52 Ryder Michel MD Jan 21, 2017 09:59
[2017-01-20] MEDS: PIPERACIL-TAZO 3.375 GM PREMIX 50 ML IV SCH ×2 (17:26→21:47)
[2017-01-20] MEDS: PANTOPRAZOLE SOD 40 MG DELAYED RELEASE TAB PO SCH (17:26)
[2017-01-20] MEDS: FERROUS SULFATE 325 MG (65 MG ELEMENTAL IRON) TAB PO SCH (17:26)
[2017-01-20] MEDS: SODIUM CHLORIDE 0.9% FLUSH 5 ML FLUSH FLUSH SCH (21:00)
[2017-01-20] MEDS ORDERED: PILL SPLITTER OTHER PRN (21:00)
--- NOTE | 2017-01-20 21:13 | EKG ---
Date Performed: 01/20/2017 Time Performed: 17:45:52 PTAGE: 89 years EKG: Sinus rhythm WITH FIRST DEGREE AV BLOCK WITH FREQUENT ECTOPIC PREMATURE COMPLEXES RIGHT BUNDLE BRANCH BLOCK MODER ATE T-WAVE ABNORMALITY, CONSIDER LATERAL ISCHEMIA ABNORMAL ECG NO SIGNIFICANT CHANGE FROM PRIOR ELECT ROCARDIOGRAM. PREVIOUS TRACING : 01/20/2017 11.05 DOCTOR: Everton Li Interpretating Date/Time 01/20/2017 21:12:28
[2017-01-20] MEDS: POTASSIUM CHLORIDE 10 MEQ CONTROLLED RELEASE TAB PO SCH (21:47)
[2017-01-20] MEDS: TAMSULOSIN HCL 0.4 MG CAP PO SCH (21:47)
[2017-01-20] MEDS: traZODone HCL 50 MG TAB PO SCH (21:47)
[2017-01-20] MEDS: METOPROLOL TARTRATE 50 MG TAB PO SCH (21:47)
[2017-01-20] MEDS: ATORVASTATIN 20 MG TAB PO SCH (21:47)
[2017-01-20] MEDS ORDERED: VANCOMYCIN INJ 1,200 MG in SODIUM CHLOR 0.9% 250 ML INJ 250 ML IV SCH (23:00)
[2017-01-20 23:41] LABS: MAGNESIUM 1.9 MG/DL (1.5-2.5)
[2017-01-21] VITALS (10 sets, daily range): BP systolic 139–172; BP diastolic 63–79; PULSE 52–78; RESP 18–20; TEMP 97.1–98.2; O2SAT 92–99
[2017-01-21] MEDS: SODIUM CHLOR 0.9% 1000 ML INJ 1,000 ML IV SCH ×3 (01:52→19:40)
[2017-01-21] MEDS: RESP: ALBUTEROL 2.5 MG/IPRATROPIUM 0.5 MG NEB (SCH) INH ×4 (05:26→20:13)
--- NOTE | 2017-01-21 06:08 | EKG ---
Date Performed: 01/20/2017 Time Performed: 22:30:46 PTAGE: 89 years EKG: Sinus rhythm WITH FIRST DEGREE AV BLOCK WITH FREQUENT VENTRICULAR PREMATURE COMPLEXES RIGHT BUNDLE BRANCH BLOCK N onspecific T wave changes NO SIGNIFICANT CHANGE FROM PRIOR ELECTROCARDIOGRAM. PREVIOUS TRACING : 01/20/2017 17.45 DOCTOR: Everton Li Interpretating Date/Time 01/21/2017 06:07:29
[2017-01-21] MEDS: PIPERACIL-TAZO 3.375 GM PREMIX 50 ML IV SCH ×4 (06:12→23:09)
[2017-01-21 07:06] LABS: AUTOMATED NEUTROPHIL # 12.1 TH/MM3 (1.8-7.7); BASOPHIL % 0.2 % (0.0-2.0); HEMATOCRIT 32.8 % (39.0-51.0); HEMO FLAGS DIFF FINAL; LYMPH % 6.6 % (9.0-44.0); LYMPHOCYTE # 0.9 TH/MM3 (1.0-4.8); MEAN CELL VOLUME 93.9 FL (80.0-100.0); MEAN CORPUSCULAR HGB CONC 34.1 % (32.0-36.0); MONO % 3.4 % (0.0-8.0); NEUT % 89.8 % (16.0-70.0); PLATELET COUNT 145 TH/MM3 (150-450); RED BLOOD COUNT 3.49 MIL/MM3 (4.50-5.90); RED CELL DISTRIBUTION WIDTH 14.3 % (11.6-17.2); WHITE BLOOD COUNT 13.5 TH/MM3 (4.0-11.0)
[2017-01-21 07:44] LABS: ALKALINE PHOSPHATASE 97 U/L (45-117); ALT (GPT) 18 U/L (12-78); ANION GAP 12 MEQ/L (5-15); AST (GOT) 10 U/L (15-37); BICARBONATE 21.4 MEQ/L (21.0-32.0); BLOOD UREA NITROGEN 23 MG/DL (7-18); CHLORIDE 109 MEQ/L (98-107); GLOMERULAR FILTRATION RATE 34 ML/MIN (>89); MAGNESIUM 1.9 MG/DL (1.5-2.5); POTASSIUM 3.9 MEQ/L (3.5-5.1); SODIUM (NA) 142 MEQ/L (136-145); TOTAL BILIRUBIN ADULT 0.5 MG/DL (0.2-1.0)
[2017-01-21] MEDS: FERROUS SULFATE 325 MG (65 MG ELEMENTAL IRON) TAB PO SCH ×3 (08:13→16:53)
[2017-01-21] MEDS: CLOPIDOGREL 75 MG TAB PO SCH (08:13)
[2017-01-21] MEDS: ALLOPURINOL 100 MG TAB PO SCH (08:13)
[2017-01-21] MEDS: LISINOPRIL 5 MG TAB PO SCH (08:13)
[2017-01-21] MEDS: SODIUM CHLORIDE 0.9% FLUSH 5 ML FLUSH FLUSH SCH ×2 (08:14→20:59)
[2017-01-21] MEDS: POTASSIUM CHLORIDE 10 MEQ CONTROLLED RELEASE TAB PO SCH ×2 (08:14→21:01)
[2017-01-21] MEDS: METOPROLOL TARTRATE 50 MG TAB PO SCH ×2 (08:14→21:01)
[2017-01-21] MEDS: PANTOPRAZOLE SOD 40 MG DELAYED RELEASE TAB PO SCH (08:14)
[2017-01-21] MEDS: ASPIRIN EC 81 MG TABEC PO SCH (08:14)
[2017-01-21] MEDS: predniSONE 20 MG TAB PO SCH (08:14)
--- NOTE | 2017-01-21 08:31 | HHI.FPPN ---
Subjective Remarks No acute events overnight patient is feeling much better this morning. Per nursing staff he seems to be much more interactive and talkative. He continues to require 2 L of nasal cannula oxygen but has been afebrile. He denies chest pain, he denies coughing, he denies abdominal pain, he denies palpitations. In summary this is an 89-year-old male presented to the hospital from his fdc in [employer] with hypoxia and dyspnea. He has a past medical history of CVA with residual left-sided weakness as well as prostate cancer status post radiation. He was hospitalized with pneumonia treated in November 2016 and was discharged to a fdc in [employer]. He was doing well up until yesterday when the nurses noticed labored breathing, lethargy, and hypoxia to 89% at room air. He was also noted to have elevated blood pressures of 180/90 and tachycardic to 100 bpm. There is no mention of fever/chills, coughing, chest pain, or sputum production. Past Medical History Dementia GI bleed CVA with left-sided deficits Coronary artery disease PVD Atrial fibrillation 1974 Hyperlipidemia Hypertension CKD BPH GERD Gout Prostate cancer s/p radiation therapy Osteoarthritis Anemia Past Surgical History Left hip replacement Bilateral cataract surgery Family History Father of pneumonia. Social History Denies cigarette smoking. Admits to drinking very little alcohol; occasional beer Objective Vitals Vital Signs Date Time Temp Pulse Resp B/P Pulse Ox O2 Delivery O2 Flow Rate FiO2 01/21/17 05:28 98 Nasal Cannula 2.00 01/21/17 04:00 97.1 59 20 167/66 98 01/21/17 00:00 97.4 52 20 143/65 99 01/20/17 20:02 Nasal Cannula 2.00 01/20/17 20:00 98.2 63 18 144/91 95 01/20/17 20:00 68 01/20/17 16:25 98 Nasal Cannula 2.00 01/20/17 15:31 98.3 60 20 146/65 98 01/20/17 14:39 84 20 149/77 99 01/20/17 13:54 96 Nasal Cannula 2.00 01/20/17 11:47 65 24 152/82 96 Nasal Cannula 2 01/20/17 11:01 96 Nasal Cannula 2 01/20/17 10:51 98.9 95 28 192/93 95 I/O 01/20/17 01/20/17 01/20/17 01/21/17 01/21/17 01/21/17 07:00 15:00 23:00 07:00 15:00 23:00 Intake Total 817 ml Output Total 300 ml Balance -300 ml 817 ml Intake IV Total 817 ml Output Urine Total 300 ml # Voids 1 0 # Bowel Movements 0 Result Diagram: 01/21/17 0638 01/21/17 0638 Imaging Last 48 hours Impressions Chest X-Ray 01/20/17 1059 Signed Impressions: Service Date/Time: Friday, January 20, 2017 11:09 - CONCLUSION: Compensated cardiomegaly otherwise negative. Mick Casanova MD FACR Objective Remarks GENERAL: Elderly-appearing male, lying in bed in no obvious distress. Right upper extremity with a coarse tremor. SKIN: No rashes, ecchymoses or lesions. Cool and dry. EYES: Pupils equal round and reactive. NECK: Trachea midline. No JVD or lymphadenopathy. CARDIOVASCULAR: Distant heart sounds, however normal right rate and rhythm with no obvious murmur. RESPIRATORY: Clear to auscultation bilaterally with some mild basilar wheezing, moderate air exchange GASTROINTESTINAL: Abdomen soft, slightly tender over umbilicus. No masses appreciated. MUSCULOSKELETAL: Extremities without clubbing, cyanosis, or edema. NEUROLOGICAL: Awake and alert. 2/5 strength left lower ext, 4/5 mobile equipment servicer strength of left hand, sensation intact throughout. A/P Assessment and Plan Mr. Patel is a very pleasant 89-year-old male presenting with sepsis due to hospital-acquired pneumonia Problem List: (1) Sepsis Status: Acute Plan: Meet sepsis criteria with tachypnea, leukocytosis, possible source of infection with pneumonia Antibiotic management for hospital-acquired pneumonia: -Zosyn 3.375 q 6 given renal impairment 01/20/17-- -Vancomycin as dosed by pharmacy 01/20/17-- Symptom control as below: - Prednisone 40 mg by mouth daily - Breathing treatments with duo nebs every 6 hours - Supplemental oxygen as needed to keep O2 sats greater than 90% Wean as tolerated back to room air Urine legionella and strep pneumococcal antigens negative Nasal washing negative for influenza Blood cultures drawn and pending Prednisone 40 mg daily Breathing treatment (duonebs q 6 hours scheduled). (2) HCAP (healthcare-associated pneumonia) Status: Acute Plan: Patient recently hospitalized and treated for pneumonia in 10/21 - C management for sepsis as above (3) CKD (chronic kidney disease) Status: Acute Plan: Patient with known chronic kidney disease with baseline creatinine 1.7- 2.0 - On admission creatinine was 1.76, increased to 1.90 today He was given 1 L normal saline bolus in the emergency department Avoid nephrotoxic agents Consider gentle IV fluids if creatinine continues to increase Monitor with daily lab work (4) HTN (hypertension) Status: Chronic Plan: Labile blood pressures ranging from 192/93 on admission 140-190s systolic and 60s90s diastolic Continue with medications as below: Metoprolol 50 po q 12 hydralazine 10 mg PO systolic > 160, diastolic > 90. (5) Hx of ventricular tachycardia Status: Acute Plan: History of Bigemy and V. tach on previous admission Electrolytes WNL on admission. K 3.7, Sodium 139. Check Mag and Phos. Replete as necessary. Cardiac telemetry. Previously evaluated by Dr. Baltazar. Nuc stress showed no signs of ischemia in Nov 2016. ECHO during the same admission showed: Mild mitral valve regurgitation, and an EF of 55-60%. (6) History of GI bleed Status: Acute Plan: PPI 40 mg by mouth daily. Check Hemoccult stool. Monitor H&H (7) Debility Status: Acute Plan: Physical therapy to evaluate patient and work with him all in hospital Would consider palliative care if continuing to decline. (8) Fluids, Electrolytes, Nutrition Status: Acute Plan: Fluids: 100 ml/hr NS Electrolytes: Recheck BMP in AM Nutrition: Reg basic diet DVT ppx: Lovenox 30 units q 24 hours, monitor for signs of bleeding. Problem Qualifiers (1) Sepsis: Qualified Code: A41.9 - Sepsis, due to unspecified organism (2) HTN (hypertension): Qualified Code: I10 - Essential hypertension Ryder Michel MD Jan 21, 2017 08:31
[2017-01-21] MEDS ORDERED: PANTOPRAZOLE SOD 20 MG DELAYED RELEASE TAB PO SCH (09:00)
--- NOTE | 2017-01-21 10:24 | RADRPT ---
EXAM DATE/TIME: 01/21/2017 09:58 [facility] COMPARISON: CHEST SINGLE AP, January 20, 2017, 11:09. INDICATIONS : Shortness of breath. MEDICAL HISTORY : Congestive heart failure. Gastroesophageal reflux disease. SURGICAL HISTORY : None. ENCOUNTER: Subsequent ACUITY: 2 days PAIN SCORE: 0/10 LOCATION: chest FINDINGS: A single view of the chest demonstrates new mild atelectasis in the left lung base. Otherwise the rig ht lung is clear. There is mild elevation of the left and the diaphragm. Heart size is stable. No ple ural effusions. The bony structures are stable.. CONCLUSION: There is new mild atelectasis in the left lung base. Ryder Treviño MD on January 21, 2017 at 10:22 Board Certified Radiologist. This report was verified electronically.
[2017-01-21] MEDS ORDERED: VANCOMYCIN INJ 1,250 MG in SODIUM CHLOR 0.9% 250 ML INJ 250 ML IV ONE (11:00)
[2017-01-21] MEDS: TAMSULOSIN HCL 0.4 MG CAP PO SCH (21:01)
[2017-01-21] MEDS: ATORVASTATIN 20 MG TAB PO SCH (21:01)
[2017-01-21] MEDS: traZODone HCL 50 MG TAB PO SCH (21:01)
[2017-01-22] VITALS (8 sets, daily range): BP systolic 139–201; BP diastolic 64–91; PULSE 55–83; RESP 18–24; TEMP 97.3–97.8; O2SAT 94–97
[2017-01-22] MEDS: RESP: ALBUTEROL 2.5 MG/IPRATROPIUM 0.5 MG NEB (SCH) INH ×3 (04:09→20:01)
[2017-01-22] MEDS: PIPERACIL-TAZO 3.375 GM PREMIX 50 ML IV SCH ×4 (05:16→22:11)
[2017-01-22] MEDS: SODIUM CHLOR 0.9% 1000 ML INJ 1,000 ML IV SCH ×2 (05:19→14:28)
[2017-01-22 07:44] LABS: AUTOMATED NEUTROPHIL # 10.3 TH/MM3 (1.8-7.7); BASOPHIL % 0.4 % (0.0-2.0); EOSINOPHIL # 0.2 TH/MM3 (0-0.4); EOSINOPHIL % 1.5 % (0.0-4.0); HEMATOCRIT 29.2 % (39.0-51.0); HEMO FLAGS DIFF FINAL; LYMPH % 8.3 % (9.0-44.0); MEAN CELL VOLUME 93.1 FL (80.0-100.0); MEAN CORPUSCULAR HGB CONC 34.4 % (32.0-36.0); MONO % 6.2 % (0.0-8.0); NEUT % 83.6 % (16.0-70.0); PLATELET COUNT 128 TH/MM3 (150-450); RED BLOOD COUNT 3.13 MIL/MM3 (4.50-5.90); RED CELL DISTRIBUTION WIDTH 13.9 % (11.6-17.2); WHITE BLOOD COUNT 12.3 TH/MM3 (4.0-11.0)
[2017-01-22 08:00] LABS: BICARBONATE 22.5 MEQ/L (21.0-32.0); POTASSIUM 3.1 MEQ/L (3.5-5.1)
--- NOTE | 2017-01-22 08:57 | HHI.FPPN ---
Subjective Remarks Mr. Patel reports "not doing well" -- he had 2 episodes of vomiting bright red blood. He denies abdominal pain but does feel nauseous. He has not had a BM for 2-3 days. Urinating frequently, but in small amounts. He denies CP SOB or diarrhea. (Venancio Schofield MD R2) Objective Vitals Vital Signs Date Time Temp Pulse Resp B/P Pulse Ox O2 Delivery O2 Flow Rate FiO2 01/22/17 04:11 94 Nasal Cannula 2.00 01/22/17 04:00 97.6 68 18 152/66 97 01/22/17 00:00 97.8 66 18 139/64 96 01/21/17 20:16 97 Nasal Cannula 2.00 01/21/17 20:00 97.6 73 18 144/79 97 01/21/17 20:00 Nasal Cannula 2.00 01/21/17 16:35 98.2 78 20 147/72 94 01/21/17 12:00 97.3 60 18 144/71 95 01/21/17 11:41 93 Nasal Cannula 2.00 01/21/17 10:45 139/63 I/O 01/21/17 01/21/17 01/21/17 01/22/17 01/22/17 01/22/17 07:00 15:00 23:00 07:00 15:00 23:00 Intake Total 817 ml 480 ml 120 ml Output Total 200 ml Balance 817 ml 280 ml 120 ml Intake Oral 480 ml 120 ml IV Total 817 ml Output Urine Total 200 ml # Voids 1 # Bowel Movements 1 (Venancio Schofield MD R2) Result Diagram: 01/22/17 0658 01/22/17 0655 Imaging Last Impressions Chest X-Ray 01/21/17 0000 Signed Impressions: Service Date/Time: Saturday, January 21, 2017 09:58 - CONCLUSION: There is new mild atelectasis in the left lung base. Ryder Treviño MD Objective Remarks GENERAL: Elderly-appearing male, lying in bed diaphoretic. Coffee ground emesis soiling sheets. Right upper extremity with a coarse tremor. SKIN: No rashes, ecchymoses or lesions. Cool and dry. EYES: Pupils equal round and reactive. NECK: Trachea midline. No JVD or lymphadenopathy. CARDIOVASCULAR: Distant heart sounds, however normal right rate and rhythm with no obvious murmur. RESPIRATORY: Clear to auscultation bilaterally with some mild basilar wheezing, moderate air exchange GASTROINTESTINAL: Distended compared to prior exam. Abdomen soft, slightly tender over umbilicus. No masses appreciated. MUSCULOSKELETAL: Extremities without clubbing, cyanosis, or edema. NEUROLOGICAL: Awake and alert. 2/5 strength left lower ext, 4/5 fraud investigator strength of left hand, sensation intact throughout. (Venancio Schofield MD R2) A/P Assessment and Plan Mr. Patel is a very pleasant 89-year-old male presenting with sepsis due to hospital-acquired pneumonia (Venancio Schofield MD R2) Attending Attestation Patient examined and case discussed with resident physicians I have read the bone agree with assessment/plan as discussed with me I was involved in all medical decision making for this patient Ryder Michel M.D. (Ryder Michel MD) Problem List: (1) Coffee ground emesis Status: Acute Plan: Oct 2016 hospitalization had coffee ground emesis - CT showed "mild gastris distension and fluid-filled esophagitis" EGD at that time showed gastritis and esophagitis. -Repeat H&H at 1500 hr. -Type and Screen -CT abdomen/pelvis w/o contrast -Change to IV PPI, 40 mg BID. -Consult GI, we appreciate their recommendations -Zofran 4 mg q 6 hr PRN N/V - QT interval 450 will monitor. (2) Sepsis Status: Acute Plan: Meet sepsis criteria with tachypnea, leukocytosis, possible source of infection with pneumonia. Antibiotic management for hospital-acquired pneumonia: -Zosyn 3.375 q 6 given renal impairment 01/20/17-- -Vancomycin as dosed by pharmacy 01/20/17-- Symptom control as below: - Prednisone 40 mg by mouth daily -> reduced to 20 mg daily given GI bleed. - Breathing treatments with duo nebs every 6 hours - Supplemental oxygen as needed to keep O2 sats greater than 90% Wean as tolerated back to room air Urine legionella and strep pneumococcal antigens negative Nasal washing negative for influenza Blood cultures drawn and pending (3) HCAP (healthcare-associated pneumonia) Status: Acute Plan: Patient recently hospitalized and treated for pneumonia in 10/21 - C management for sepsis as above (4) CKD (chronic kidney disease) Status: Acute Plan: Patient with known chronic kidney disease with baseline creatinine 1.7- 2.0 - On admission creatinine was 1.76, at baseline on 01/22. He was given 1 L normal saline bolus in the emergency department Avoid nephrotoxic agents Consider gentle IV fluids if creatinine continues to increase Monitor with daily lab work (5) HTN (hypertension) Status: Chronic Plan: Labile blood pressures ranging from 192/93 on admission 140-190s systolic and 60s90s diastolic: Resolved. Continue with medications as below: Metoprolol 50 po q 12 hydralazine 10 mg PO systolic > 160, diastolic > 90. (6) Hx of ventricular tachycardia Status: Acute Plan: History of Bigemy and V. tach on previous admission Electrolytes WNL on admission. K 3.7, Sodium 139. Check Mag and Phos. Replete as necessary. Cardiac telemetry. Previously evaluated by Dr. Baltazar. Nuc stress showed no signs of ischemia in Nov 2016. ECHO during the same admission showed: Mild mitral valve regurgitation, and an EF of 55-60%. (7) History of GI bleed Status: Acute Plan: PPI 40 mg IV BID. Check Hemoccult stool. Monitor H&H at 1500 on 01/22 given GI bleeding. (8) Debility Status: Acute Plan: Physical therapy to evaluate patient and work with him all in hospital Would consider palliative care if continuing to decline. (9) Fluids, Electrolytes, Nutrition Status: Acute Plan: Fluids: 100 ml/hr NS Electrolytes: K+ low to 3.1 -- give 30 meq KCL PO x 1, continue with 10 Meq BID. Recheck BMP in AM. Nutrition: Reg basic diet DVT ppx: Mechanical. Hold medical ppx given pos gi bleed. wdw Dr. Michel. (Venancio Schofield MD R2) Problem Qualifiers (1) Sepsis: Qualified Code: A41.9 - Sepsis, due to unspecified organism (2) HTN (hypertension): Qualified Code: I10 - Essential hypertension Venancio Schofield MD R2 Jan 22, 2017 08:57 Ryder Michel MD Jan 22, 2017 11:25
[2017-01-22] MEDS ORDERED: POTASSIUM CHLORIDE 10 MEQ CONTROLLED RELEASE TAB PO ONE (09:15)
[2017-01-22] MEDS ORDERED: ONDANSETRON HCL 4 MG/2 ML VIAL IV PUSH PRN (09:15)
[2017-01-22] MEDS: LISINOPRIL 5 MG TAB PO SCH (09:26)
[2017-01-22] MEDS: FERROUS SULFATE 325 MG (65 MG ELEMENTAL IRON) TAB PO SCH ×3 (09:26→17:09)
[2017-01-22] MEDS: ALLOPURINOL 100 MG TAB PO SCH (09:26)
[2017-01-22] MEDS: METOPROLOL TARTRATE 50 MG TAB PO SCH ×2 (09:26→22:11)
[2017-01-22] MEDS: predniSONE 20 MG TAB PO SCH (09:27)
[2017-01-22] MEDS: SODIUM CHLORIDE 0.9% FLUSH 5 ML FLUSH FLUSH SCH ×2 (09:27→21:00)
[2017-01-22] MEDS: POTASSIUM CHLORIDE 10 MEQ CONTROLLED RELEASE TAB PO SCH ×2 (09:27→22:11)
--- NOTE | 2017-01-22 11:02 | RADRPT ---
EXAM DATE/TIME: 01/22/2017 10:38 [facility] COMPARISON: CT ABDOMEN & PELVIS W/O CONTRAST, November 02, 2016, 20:05. INDICATIONS : Vomiting and bloody stool. ORAL CONTRAST: No oral contrast ingested. RADIATION DOSE: 19.61 CTDIvol (mGy) MEDICAL HISTORY : Congestive heart failure. Cardiovascular disease Cerebrovascular disease.Hypertension. Prostate cance r. SURGICAL HISTORY : Orthopedic surgery. ENCOUNTER: Initial ACUITY: 1 day PAIN SCALE: 0/10 LOCATION: abdomen TECHNIQUE: Volumetric scanning of the abdomen and pelvis was performed. Using automated exposure control and ad justment of the mA and/or kV according to patient size, radiation dose was kept as low as reasonably achievable to obtain optimal diagnostic quality images. FINDINGS: LOWER LUNGS: Small bilateral pleural effusions. LIVER: Homogeneous density without lesion. There is no dilation of the biliary tree. No calcified gallston es. SPLEEN: Normal size without lesion. 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 PANCREAS: Within normal limits. KIDNEYS: Normal in size and shape. There is no mass, stone, or hydronephrosis. 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 Right-sided renal cyst. ADRENAL GLANDS: Within normal limits. VASCULAR: There is no aortic aneurysm. BOWEL/MESENTERY: The stomach, small bowel, and colon demonstrate no acute abnormality. There is no free intraperitone al air or fluid. Minimal fluid in the left paracolic gutter. Few scattered diverticula. Copious stool in the rectum. ABDOMINAL WALL: Bulging of the left lateral abdominal wall. RETROPERITONEUM: There is no lymphadenopathy. BLADDER: There is distention. No wall thickening or mass. REPRODUCTIVE: Within normal limits. INGUINAL: There is no lymphadenopathy or hernia. MUSCULOSKELETAL: Left hip prosthesis CONCLUSION: 1. Few scattered diverticula. 2. Minimal fluid in left paracolic gutter. 3. Copious stool in the rectum. 4. Mild distention urinary bladder. 5. Right-sided renal cyst. 6. Small bilateral pleural effusions. 7. 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 8. Lateral bulging left abdominal wall. Eugenio Rodriguez MD on January 22, 2017 at 10:55 Board Certified Radiologist. This report was verified electronically.
[2017-01-22] MEDS: DOCUSATE SODIUM 50 MG/SENNA 8.6 MG TAB PO SCH ×2 (12:22→22:11)
[2017-01-22] MEDS: hydrALAZINE HCL 10 MG TAB PO PRN (12:22)
--- NOTE | 2017-01-22 12:43 | PD.CONS ---
HPI History of Present Illness Mr. Patel is a very pleasant 89 y/o WM with HTN, hyperlipidemia, CAD, hx of CVA with left-sided weakness, recent hx of pneumonia in 10/2016-11/2016, and hx of coffee-ground emesis during his recent hospitalization in 10/2016-11/2016 and underwent evaluation with EGD on 11/04/16 which noted esophagitis and gastritis. Pt presented back to the ED from [facility], after the nurses noticed labored breathing, lethargy, and desaturations to 89% at rest on 01/20/17. His daughter who is present at bedside reports that about 5 days prior to this admission the pt had one episode of vomiting, nonbloody emesis. She states that he does have some occasional coughing/choking when he eats since his previous stroke. Pt was diagnosed with pneumonia at admission and is being treated with Zosyn and Vancomycin. His daughter states that yesterday the pt was eating and drinking well and no issues with reported vomiting. The pt who has some baseline dementia reports that he vomited yesterday and didn't tell anyone. He states that there was red blood in the emesis. Nursing staff today states that the pt has had a poor appetite and did not eat breakfast. He had an episode of vomiting this morning with dark coffee-ground emesis reported by the nursing informatics clinical analyst but pt is still insisting that it was red blood. CT Abd/pelvis was ordered by attending physician and this indicated copious stool in the rectum and the pt reports that he has not had a good BM in several days. He had one small BM reported yesterday. Pt is passing gas today. Denies any abd pain, reflux, dysphagia, chest pain, SOB or palpitations. (Gwen Emery) PFSH Past Medical History Hx obtained from the EMR and family at bedside Dementia GI bleed CVA with left-sided deficits Coronary artery disease PVD Atrial fibrillation 1974 Hyperlipidemia Hypertension CKD BPH GERD Gout Prostate cancer s/p radiation therapy Osteoarthritis Anemia Past Surgical History Left hip replacement Bilateral cataract surgery (Gwen Emery) Coded Allergies: No Known Allergies (Verified , 11/02/16) Medications Metoprolol Tartrate 25 Mg Tab 50 Mg PO Q12HR 30 Days Atorvastatin (Atorvastatin Calcium) 20 Mg Tab 20 Mg PO HS Pantoprazole (Pantoprazole Sodium) 20 Mg Tab 20 Mg PO DAILY Aspirin 81 (Aspirin) 81 Mg Tabdr 81 Mg PO DAILY Ferrous Sulfate 325 Mg Tab 325 Mg PO TID Take with meals Klor-Con 10 (Potassium Chloride) 10 Meq Tab 10 Meq PO BID Trazodone (Trazodone HCl) 50 Mg Tab 25 Mg PO HS Clopidogrel (Clopidogrel Bisulfate) 75 Mg Tab 75 Mg PO DAILY Allopurinol 100 Mg Tab 100 Mg PO DAILY Tamsulosin (Tamsulosin HCl) 0.4 Mg Cap 0.4 Mg PO HS Lisinopril 5 Mg Tab 5 Mg PO DAILY Zofran (Ondansetron HCl) 4 Mg Tab 4 Mg PO Q6HR PRN Reglan (Metoclopramide HCl) 5 Mg Tab 5 Mg PO TID With meals Family History Father of pneumonia. Social History Pt resides at [facility] Denies any tobacco use. Admits to drinking very little alcohol; occasional beer. (Gwen Emery) Review of Systems Constitutional: COMPLAINS OF: Change in appetite, DENIES: Fever, Chills Respiratory: COMPLAINS OF: Cough, Sputum production Cardiovascular: DENIES: Chest pain, Palpitations Gastrointestinal: COMPLAINS OF: Constipation, Nausea, Vomiting, Hematemesis, DENIES: Abdominal pain, Black stools, Bloody stools, Diarrhea, Swelling of Abdomen Genitourinary: DENIES: Hematuria, Dysuria Musculoskeletal: DENIES: Joint pain Integumentary: DENIES: Rash Hematologic/lymphatic: DENIES: Bruising Psychiatric: COMPLAINS OF: Confusion (Gwen Emery) GI Exam Vitals I&O Vital Signs Date Time Temp Pulse Resp B/P Pulse Ox O2 Delivery O2 Flow Rate FiO2 01/22/17 08:00 97.6 83 24 168/81 96 01/22/17 04:11 94 Nasal Cannula 2.00 01/22/17 04:00 97.6 68 18 152/66 97 01/22/17 00:00 97.8 66 18 139/64 96 01/21/17 20:16 97 Nasal Cannula 2.00 01/21/17 20:00 97.6 73 18 144/79 97 01/21/17 20:00 Nasal Cannula 2.00 01/21/17 16:35 98.2 78 20 147/72 94 01/21/17 12:00 97.3 60 18 144/71 95 I/O 01/21/17 01/21/17 01/21/17 01/22/17 01/22/17 01/22/17 07:00 15:00 23:00 07:00 15:00 23:00 Intake Total 817 ml 480 ml 120 ml Output Total 200 ml Balance 817 ml 280 ml 120 ml Intake Oral 480 ml 120 ml IV Total 817 ml Output Urine Total 200 ml # Voids 1 # Bowel Movements 1 Imaging Last Impressions Abdomen/Pelvis CT 01/22/17 0000 Signed Impressions: Service Date/Time: Sunday, January 22, 2017 10:38 - CONCLUSION: 1. Few scattered diverticula. 2. Minimal fluid in left paracolic gutter. 3. Copious stool in the rectum. 4. Mild distention urinary bladder. 5. Right-sided renal cyst. 6. Small bilateral pleural effusions. 7. 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 8. Lateral bulging left abdominal wall. Eugenio Rodriguez MD Chest X-Ray 01/21/17 0000 Signed Impressions: Service Date/Time: Saturday, January 21, 2017 09:58 - CONCLUSION: There is new mild atelectasis in the left lung base. Ryder Treviño MD Laboratory Test 01/22/17 01/22/17 06:55 06:58 Sodium Level 143 MEQ/L Potassium Level 3.1 MEQ/L Chloride Level 112 MEQ/L Carbon Dioxide Level 22.5 MEQ/L Anion Gap 9 MEQ/L Blood Urea Nitrogen 20 MG/DL Creatinine 1.77 MG/DL Estimat Glomerular Filtration 36 ML/MIN Rate Random Glucose 110 MG/DL Calcium Level 8.7 MG/DL Random Vancomycin Level 15.9 COMMENT White Blood Count 12.3 TH/MM3 Red Blood Count 3.13 MIL/MM3 Hemoglobin 10.0 GM/DL Hematocrit 29.2 % Mean Corpuscular Volume 93.1 FL Mean Corpuscular Hemoglobin 32.0 PG Mean Corpuscular Hemoglobin 34.4 % Concent Red Cell Distribution Width 13.9 % Platelet Count 128 TH/MM3 Mean Platelet Volume 8.5 FL Neutrophils (%) (Auto) 83.6 % Lymphocytes (%) (Auto) 8.3 % Monocytes (%) (Auto) 6.2 % Eosinophils (%) (Auto) 1.5 % Basophils (%) (Auto) 0.4 % Neutrophils # (Auto) 10.3 TH/MM3 Lymphocytes # (Auto) 1.0 TH/MM3 Monocytes # (Auto) 0.8 TH/MM3 Eosinophils # (Auto) 0.2 TH/MM3 Basophils # (Auto) 0.0 TH/MM3 CBC Comment DIFF FINAL Differential Comment Date/Time Procedure Status Source Growth 01/20/17 18:20 Legionella Antigen - Final Complete Urine Catheterized Urine PRESUMPTIVE NEGATIVE FOR LEGIONELLA P... 01/20/17 18:20 Streptococcus pneumoniae Antigen (M - Final Complete Urine Catheterized Urine PRESUMPTIVE NEGATIVE FOR STREPTOCOCCU... 01/20/17 14:00 Influenza Types A,B Antigen (MAGO) - Final Complete Nasal Washing NEGATIVE FOR FLU A AND B ANTIGEN.... 01/20/17 11:00 Aerobic Blood Culture - Preliminary Resulted Blood Peripheral NO GROWTH IN 2 DAYS 01/20/17 11:00 Anaerobic Blood Culture - Preliminary Resulted Blood Peripheral NO GROWTH IN 2 DAYS Physical Examination HEENT: Pupils round and reactive to light; normocephalic; atraumatic; no jaundice. Throat is clear. NECK: Neck is supple, no JVD, no lymphadenopathy. CHEST: Chest is clear to auscultation and percussion. CARDIAC: Regular ABDOMEN: +BS, soft, mildly distended, minimal lower abdominal tenderness, below the umbilicus EXTREMITIES: No clubbing, cyanosis, or edema. SKIN: Normal; no rash; no jaundice. MORTGAGE FUNDER: No focal deficits; alert and oriented. (Gwen Emery) Assessment and Plan Plan ASSESSMENT: - Nausea/vomiting and coffee-ground emesis. Pt with hx of coffee-ground emesis during his recent hospitalization in 10/2016-11/2016 and underwent evaluation with EGD on 11/04/16 which noted esophagitis and gastritis. About 5 days prior to this admission the pt had one episode of vomiting, nonbloody emesis. His daughter reports that he does have some occasional coughing/choking when he eats since his previous stroke. Nursing staff today states that the pt has had a poor appetite and did not eat breakfast. He had an episode of vomiting this morning with dark coffee-ground emesis reported by the nursing informatics clinical analyst but pt is insisting that it was red blood. 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 No active bleeding currently. H/H is stable. Protonix 40mg IV BID. Zofran - Constipation. Pt with copious amount of stool in the rectum on CT scan. This may be contributing to his vomiting. Clinically pt does not appear obstructed. Pericolace BID ordered today - HTN with elevated BP, management per attending. - Pneumonia ?aspiration pneumonia. Consider MBS after EGD. - CKD, Dementia, Hx of ventricular tachycardia . Management per attending. PLAN: - Plan for evaluation with EGD tomorrow as long as pt remains stable. - NPO after MN except meds - Protonix 40mg IV BID - Zofran PRN - Cont. Pericolace BID - Give MOM and prune juice today - MOM PRN - Fleet enema PRN - KUB in AM - Monitor clinical status - Consider MBS to assess for aspiration after EGD - Supportive care - Further recs as the case develops - The pt was seen and examined by myself and Dr. Hughes, this note was written on his behalf. (Gwen Emery) Physician Comments Patient seen and examined Agree with above Continue with current supportive care Monitor labs Plan for an EGD tomorrow (Raduel Hughes MD) Gwen Emery Jan 22, 2017 12:43 Raudel Hughes MD Jan 22, 2017 16:31
[2017-01-22] MEDS ORDERED: MAGNESIUM HYDROXIDE SUSP 30 ML CUP PO ONE (12:45)
[2017-01-22] MEDS ORDERED: MAGNESIUM HYDROXIDE SUSP 30 ML CUP PO PRN (12:45)
[2017-01-22] MEDS ORDERED: SOD PHOSPHATE/SOD BIPHOSPHATE (ADULT) ENEMA 133ML PR PRN (12:45)
[2017-01-22 13:28] LABS: HEMATOCRIT 32.4 % (39.0-51.0); REVIEW FLAG FINAL
[2017-01-22] MEDS: VANCOMYCIN INJ 1,250 MG in SODIUM CHLOR 0.9% 250 ML INJ 250 ML IV SCH (14:27)
[2017-01-22] MEDS: TAMSULOSIN HCL 0.4 MG CAP PO SCH (22:10)
[2017-01-22] MEDS: traZODone HCL 50 MG TAB PO SCH (22:11)
[2017-01-22] MEDS: ATORVASTATIN 20 MG TAB PO SCH (22:11)
[2017-01-22] MEDS: PANTOPRAZOLE SODIUM 40 MG VIAL IV PUSH SCH (22:12)
[2017-01-23] VITALS (10 sets, daily range): BP systolic 158–240; BP diastolic 68–113; PULSE 60–85; RESP 16–24; TEMP 97.3–97.9; O2SAT 91–98
[2017-01-23] MEDS: SODIUM CHLOR 0.9% 1000 ML INJ 1,000 ML IV SCH (01:40)
[2017-01-23] MEDS: RESP: ALBUTEROL 2.5 MG/IPRATROPIUM 0.5 MG NEB (SCH) INH ×4 (04:07→22:53)
[2017-01-23] MEDS: hydrALAZINE HCL 10 MG TAB PO PRN (04:33)
[2017-01-23] MEDS: PIPERACIL-TAZO 3.375 GM PREMIX 50 ML IV SCH ×4 (04:33→23:00)
--- NOTE | 2017-01-23 05:09 | RADRPT ---
EXAM DATE/TIME: 01/23/2017 04:45 [facility] COMPARISON: CT ABDOMEN & PELVIS W/O CONTRAST, January 22, 2017, 10:38. INDICATIONS : Constipation. MEDICAL HISTORY : Carcinoma, prostatic. SURGICAL HISTORY : None. ENCOUNTER: Subsequent ACUITY: 3 days PAIN SCORE: Non-responsive. LOCATION: abdomen, all quadrants. FINDINGS: Left hip arthroplasty is noted. No evidence for bowel obstruction. Air is seen throughout nondilated large bowel. Degenerative changes of the lumbar spine and right hip. CONCLUSION: No evidence for bowel obstruction. There is stool present in the rectum. Boston Bryant MD on January 23, 2017 at 5:07 Board Certified Radiologist. This report was verified electronically.
[2017-01-23] MEDS ORDERED: LACTATED RINGER'S 1000 ML IV SCH (05:15)
[2017-01-23] MEDS ORDERED: INSULIN HUMAN REGULAR 1,000 UNITS/10 ML VIAL SQ PRN (05:15)
[2017-01-23] MEDS ORDERED: SODIUM CHLORID 0.9% 500 ML IV SCH (05:15)
[2017-01-23 06:11] LABS: AUTOMATED NEUTROPHIL # 11.6 TH/MM3 (1.8-7.7); BASOPHIL % 0.1 % (0.0-2.0); EOSINOPHIL % 0.3 % (0.0-4.0); HEMATOCRIT 29.5 % (39.0-51.0); LYMPH % 6.6 % (9.0-44.0); LYMPHOCYTE # 0.9 TH/MM3 (1.0-4.8); MEAN CELL VOLUME 93.5 FL (80.0-100.0); MEAN CORPUSCULAR HEMOGLOBIN 31.9 PG (27.0-34.0); MEAN CORPUSCULAR HGB CONC 34.1 % (32.0-36.0); MONO % 6.5 % (0.0-8.0); NEUT % 86.5 % (16.0-70.0); PLATELET COUNT 134 TH/MM3 (150-450); RED BLOOD COUNT 3.15 MIL/MM3 (4.50-5.90); WHITE BLOOD COUNT 13.4 TH/MM3 (4.0-11.0)
[2017-01-23 06:31] LABS: ALT (GPT) 17 U/L (12-78); ANION GAP 10 MEQ/L (5-15); AST (GOT) 19 U/L (15-37); BICARBONATE 22.1 MEQ/L (21.0-32.0); BLOOD UREA NITROGEN 16 MG/DL (7-18); CHLORIDE 111 MEQ/L (98-107); GLOMERULAR FILTRATION RATE 41 ML/MIN (>89); POTASSIUM 3.6 MEQ/L (3.5-5.1); PROTHROMBIN TIME - PATIENT 11.4 SEC (9.8-11.6); SODIUM (NA) 143 MEQ/L (136-145)
[2017-01-23 06:34] LABS: ALKALINE PHOSPHATASE 75 U/L (45-117); HEMO FLAGS AUTO DIFF; TOTAL BILIRUBIN ADULT 0.5 MG/DL (0.2-1.0)
[2017-01-23 07:30] LABS: BANDS 2 % (0-6); MYELOCYTES 3 % (0-0); NEUTROPHIL # MANUAL DIFF 11.9 TH/MM3 (1.8-7.7); PLATELET ESTIMATE SMEAR LOW (NORMAL); PLATELET MORPHOLOGY NORMAL (NORMAL); POLYS (SEG NEUTROPHILS) 84 % (16-70); SCAN/DIFF FINAL DIFF MANUAL; WBC DIFF SAMPLE 100
[2017-01-23] MEDS: DOCUSATE SODIUM 50 MG/SENNA 8.6 MG TAB PO SCH ×2 (09:00→21:28)
--- NOTE | 2017-01-23 09:33 | HHI.FPPN ---
Subjective Remarks Pt NPO since midnight for EGD this AM. Denies any episodes of vomiting. Also, he denies having a BM. When asked if he is better than yesterday, he says "I think so". He AOO to person, city, day of week, and president. He told me that yesterday he went to the basement to use the [facility]. Appears slightly more confused today. BP elevated overnight to 200/92. Didn't get PRN until 4 hours later. (Venancio Schofield MD R2) Objective Vitals Vital Signs Date Time Temp Pulse Resp B/P Pulse Ox O2 Delivery O2 Flow Rate FiO2 01/23/17 04:00 97.3 68 20 186/86 98 01/23/17 00:00 97.4 68 21 200/92 96 01/22/17 20:02 Nasal Cannula 2.00 01/22/17 20:00 82 01/22/17 20:00 Nasal Cannula 2.00 01/22/17 20:00 97.8 65 22 169/77 94 01/22/17 16:39 96 Nasal Cannula 2.00 01/22/17 16:00 97.6 55 24 184/82 94 01/22/17 12:00 97.3 58 20 201/91 96 I/O 01/22/17 01/22/17 01/22/17 01/23/17 01/23/17 01/23/17 07:00 15:00 23:00 07:00 15:00 23:00 Intake Total 1015 ml 240 ml Output Total 200 ml Balance 1015 ml 40 ml Intake Oral 240 ml 240 ml IV Total 775 ml Output Urine Total 200 ml Stool Total 0 ml # Voids 5 # Bowel Movements 1 (Venancio Schofield MD R2) Result Diagram: 01/23/17 0532 01/23/17 0532 Imaging Last Impressions Abdomen X-Ray 01/23/17 0600 Signed Impressions: Service Date/Time: Monday, January 23, 2017 04:45 - CONCLUSION: No evidence for bowel obstruction. There is stool present in the rectum. Boston Bryant MD Abdomen/Pelvis CT 01/22/17 0000 Signed Impressions: Service Date/Time: Sunday, January 22, 2017 10:38 - CONCLUSION: 1. Few scattered diverticula. 2. Minimal fluid in left paracolic gutter. 3. Copious stool in the rectum. 4. Mild distention urinary bladder. 5. Right-sided renal cyst. 6. Small bilateral pleural effusions. 7. 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 8. Lateral bulging left abdominal wall. Eugenio Rodriguez MD Chest X-Ray 01/21/17 0000 Signed Impressions: Service Date/Time: Saturday, January 21, 2017 09:58 - CONCLUSION: There is new mild atelectasis in the left lung base. Ryder Treviño MD Objective Remarks GENERAL: Elderly-appearing male, lying in bed diaphoretic. Coffee ground emesis soiling sheets. Right upper extremity with a coarse tremor. SKIN: No rashes, ecchymoses or lesions. Cool and dry. EYES: Pupils equal round and reactive. NECK: Trachea midline. No JVD or lymphadenopathy. CARDIOVASCULAR: Distant heart sounds, however normal right rate and rhythm with no obvious murmur. RESPIRATORY: Clear to auscultation bilaterally with some mild basilar wheezing, moderate air exchange GASTROINTESTINAL: Distended compared to prior exam. Abdomen soft, slightly tender over umbilicus. Hyperactive BS. No masses appreciated. MUSCULOSKELETAL: Extremities without clubbing, cyanosis, or edema. NEUROLOGICAL: Awake and alert. 2/5 strength left lower ext, 4/5 medical insurance coder strength of left hand, sensation intact throughout. (Venancio Schofield MD R2) A/P Assessment and Plan Mr. Patel is a very pleasant 89-year-old male presenting with sepsis due to hospital-acquired pneumonia (Venancio Schofield MD R2) Attending Attestation Pt. examined and case discussed with resident physician I have read the above note and agree with the assessment/plan as discussed with me I was involved in all medical decision making for this patient Ryder Michel MD (Ryder Michel MD) Problem List: (1) Coffee ground emesis Status: Acute Plan: Oct 2016 hospitalization had coffee ground emesis - CT showed "mild gastris distension and fluid-filled esophagitis" EGD at that time showed gastritis and esophagitis. -Repeat H&H at 1500 hr. Stable. -Type and Screen -CT abdomen/pelvis w/o contrast showed: Few scattered diverticula. Copius stool in rectum. Mild distension of urinary bladder." Repeat abdominal Xray showed no evidence of bowel obstruction. -Change to IV PPI, 40 mg BID. -Consult GI, we appreciate their recommendations - scheduled for EGD on 01/23. -Zofran 4 mg q 6 hr PRN N/V - QT interval 450 will monitor. (2) Sepsis Status: Acute Plan: Meet sepsis criteria with tachypnea, leukocytosis, possible source of infection with pneumonia. Antibiotic management for hospital-acquired pneumonia: -Zosyn 3.375 q 6 given renal impairment 01/20/17-- -Vancomycin as dosed by pharmacy 01/20/17-- Symptom control as below: - Prednisone 40 mg by mouth daily -> reduced to 20 mg daily given GI bleed. - Breathing treatments with duo nebs every 6 hours - Supplemental oxygen as needed to keep O2 sats greater than 90% Wean as tolerated back to room air Urine legionella and strep pneumococcal antigens negative Nasal washing negative for influenza Blood cultures : no growth x 2 days. (3) HCAP (healthcare-associated pneumonia) Status: Acute Plan: Patient recently hospitalized and treated for pneumonia in 10/21. Currently day 4 of ABX. - C management for sepsis as above (4) CKD (chronic kidney disease) Status: Acute Plan: Patient with known chronic kidney disease with baseline creatinine 1.7- 2.0 - On admission creatinine was 1.76, at baseline on 01/22. Avoid nephrotoxic agents Consider gentle IV fluids if creatinine continues to increase Monitor with daily lab work - stable. (5) HTN (hypertension) Status: Chronic Plan: Labile blood pressures ranging from 192/93 on admission 140-190s systolic and 60s90s diastolic: Resolved. Continue with medications as below: Metoprolol 50 po q 12 Lisinopril 5 mg daily --> 10 mg daily. hydralazine 10 mg PO systolic > 160, diastolic > 90. (6) Hx of ventricular tachycardia Status: Acute Plan: History of Bigemy and V. tach on previous admission Electrolytes WNL on admission. K 3.7, Sodium 139. Check Mag and Phos. Replete as necessary. Cardiac telemetry. Previously evaluated by Dr. Baltazar. Nuc stress showed no signs of ischemia in Nov 2016. ECHO during the same admission showed: Mild mitral valve regurgitation, and an EF of 55-60%. (7) History of GI bleed Status: Acute Plan: PPI 40 mg IV BID. Check Hemoccult stool. H&H stable. See above. (8) Debility Status: Acute Plan: Physical therapy to evaluate patient and work with him all in hospital Would consider palliative care if continuing to decline. (9) Constipation Status: Acute Plan: GI ordered MOM 30 ml x 1 and FLeats enema. He got 30 ml x 1 of MOM but did not recieve Fleats enema, if no BM by 1600 on would administer fleats enema. (10) Fluids, Electrolytes, Nutrition Status: Acute Plan: Fluids: 30 ml/hr NS Electrolytes: At goal. Nutrition: Reg basic diet after EGD. DVT ppx: Mechanical. Hold medical ppx given pos gi bleed. wdw Dr. Michel. (Venancio Schofield MD R2) Problem Qualifiers (1) Sepsis: Qualified Code: A41.9 - Sepsis, due to unspecified organism (2) HTN (hypertension): Qualified Code: I10 - Essential hypertension Venancio Schofield MD R2 Jan 23, 2017 09:33 Ryder Michel MD Jan 23, 2017 18:05
--- NOTE | 2017-01-23 09:53 | HHI.FPPN ---
Subjective Remarks No overnight events reported. The patient reports no new symptoms, as he had nausea yesterday but that resolved. He notes that the coffee-ground emesis from yesterday morning has not recurred. He recognizes that he is NPO for a possible procedure this morning with GI and notes that this happened during prior hospitalization. He denies any symptoms of fever, chills, nausea, vomiting, abdominal pain. He tried to have a bowel movement this morning without success but notes he had one yesterday. He has not had any issues with urination. He denies any pain. Objective Vitals Vital Signs Date Time Temp Pulse Resp B/P Pulse Ox O2 Delivery O2 Flow Rate FiO2 01/23/17 09:30 97.3 68 20 186/86 98 01/23/17 04:00 97.3 68 20 186/86 98 01/23/17 00:00 97.4 68 21 200/92 96 01/22/17 20:02 Nasal Cannula 2.00 01/22/17 20:00 82 01/22/17 20:00 Nasal Cannula 2.00 01/22/17 20:00 97.8 65 22 169/77 94 01/22/17 16:39 96 Nasal Cannula 2.00 01/22/17 16:00 97.6 55 24 184/82 94 01/22/17 12:00 97.3 58 20 201/91 96 I/O 01/22/17 01/22/17 01/22/17 01/23/17 01/23/17 01/23/17 07:00 15:00 23:00 07:00 15:00 23:00 Intake Total 1015 ml 240 ml Output Total 200 ml Balance 1015 ml 40 ml Intake Oral 240 ml 240 ml IV Total 775 ml Output Urine Total 200 ml Stool Total 0 ml # Voids 5 1 # Bowel Movements 1 1 Result Diagram: 01/23/17 0532 01/23/17 0532 Imaging Last 72 hours Impressions Abdomen X-Ray 01/23/17 0600 Signed Impressions: Service Date/Time: Monday, January 23, 2017 04:45 - CONCLUSION: No evidence for bowel obstruction. There is stool present in the rectum. Boston Bryant MD Abdomen/Pelvis CT 01/22/17 0000 Signed Impressions: Service Date/Time: Sunday, January 22, 2017 10:38 - CONCLUSION: 1. Few scattered diverticula. 2. Minimal fluid in left paracolic gutter. 3. Copious stool in the rectum. 4. Mild distention urinary bladder. 5. Right-sided renal cyst. 6. Small bilateral pleural effusions. 7. 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 8. Lateral bulging left abdominal wall. Eugenio Rodriguez MD Chest X-Ray 01/21/17 0000 Signed Impressions: Service Date/Time: Saturday, January 21, 2017 09:58 - CONCLUSION: There is new mild atelectasis in the left lung base. Ryder Treviño MD Chest X-Ray 01/20/17 1059 Signed Impressions: Service Date/Time: Friday, January 20, 2017 11:09 - CONCLUSION: Compensated cardiomegaly otherwise negative. Mick Casanova MD FACR Objective Remarks GENERAL: Elderly-appearing male, lying in bed in no apparent distress. He is comfortable without evidence of tremor which was noted yesterday SKIN: No rashes, ecchymoses or lesions. Cool and dry. EYES: Pupils equal round and reactive. NECK: Trachea midline. No JVD or lymphadenopathy. CARDIOVASCULAR: Distant heart sounds, however normal right rate and rhythm with no obvious murmur. RESPIRATORY: Patient is breathing comfortably on 2 L nasal cannula. Clear to auscultation bilaterally with some mild basilar wheezing, moderate air exchange GASTROINTESTINAL: Abdomen is not distended on exam. The abdomen is soft and bowel sounds are normal. No masses appreciated. MUSCULOSKELETAL: Extremities without clubbing, cyanosis, or edema. NEUROLOGICAL: Awake and alert. 2/5 strength left lower ext, 4/5 sap trainer strength of left hand, sensation intact throughout. Medications and IVs Inpatient Medications Acetaminophen (Tylenol) 650 mg Q4H PRN PO SEE LABEL COMMENTS; Start 01/20/17 at 13:45 Albuterol Sulfate (Albuterol Neb) 2.5 mg Q2HR NEB PRN INH SHORTNESS OF BREATH; Start 01/20/17 at 14:00 Albuterol/ Ipratropium (Duoneb Neb) 1 ampule Q6HR NEB INH Last administered on 01/23/17 04:07; Start 01/20/17 at 16:00 Allopurinol (Zyloprim) 100 mg DAILY PO Last administered on 01/22/17 09:26; Start 01/21/17 at 09:00 Aspirin (Ecotrin Ec) 81 mg DAILY PO Last administered on 01/21/17 08:14; Start 01/20/17 at 15:00; Status Hold Atorvastatin Calcium (Lipitor) 20 mg HS PO Last administered on 01/22/17 22:11 ; Start 01/20/17 at 21:00 Clopidogrel Bisulfate (Plavix) 75 mg DAILY PO Last administered on 01/21/17 08 :13; Start 01/20/17 at 15:00; Status Hold Enoxaparin Sodium (Lovenox Inj) 30 mg Q24H SQ Last administered on 01/20/17 15 :49; Start 01/20/17 at 15:00; Stop 01/20/17 at 20:17; Status DC Ferrous Sulfate (Ferrous Sulfate) 325 mg TID PO Last administered on 01/22/17 17:09; Start 01/20/17 at 18:00 Hydralazine HCl (Apresoline) 10 mg Q6HR PRN PO systolic >160, diastolic>90 Last administered on 01/23/17 04:33; Start 01/20/17 at 18:00 Insulin Human Regular (NovoLIN R INJ) See Protocol Table ... UNSCH X1 PRN SQ SEE PROTOCOL; Start 01/23/17 at 05:15; Stop 01/24/17 at 05:14 IV Flush (NS Flush) 2 ml BID FLUSH Last administered on 01/22/17 09:27; Start 01/20/17 at 21:00 Lactated Ringer's 1,000 ml @ 30 mls/hr Q24H IV ; Start 01/23/17 at 05:15 Lisinopril (Prinivil) 10 mg DAILY PO ; Start 01/23/17 at 09:00 Lorazepam 0.5 mg 0.5 mg Q6H PRN IVS MODERATE TO SEVERE ANXIETY; Start 01/20/17 at 13:45 Magnesium Hydroxide (Milk Of Magnesia Liq) 30 ml DAILY PRN PO constipation; Start 01/22/17 at 12:45 Metoprolol Tartrate (Lopressor) 50 mg Q12HR PO Last administered on 01/22/17 22:11; Start 01/20/17 at 21:00 Miscellaneous 1 ea 1 ea UNSCH PRN OTHER SEE LABEL COMMENTS; Start 01/20/17 at 21:00 Ondansetron HCl (Zofran Inj) 4 mg Q6HR PRN IV PUSH NAUSEA OR VOMITING; Start at 09:15 Pantoprazole Sodium (Protonix) 40 mg DAILY PO Last administered on 01/21/17 08 :14; Start 01/20/17 at 18:00; Stop 01/22/17 at 08:48; Status DC Pantoprazole Sodium 40 mg 40 mg Q12HR IV PUSH Last administered on 01/22/17 22 :12; Start 01/22/17 at 21:00 Pharmacy Profile Note (Vancomycin Consult Pharmacy) ml @ 0 mls/hr UNSCH XX ; Start 01/20/17 at 14:30 Piperacillin Sod/ Tazobactam Sod (Zosyn 3.375 Gm Premix) 50 ml @ 200 mls/hr Q6H IV Last administered on 01/23/17 04:33; Start 01/20/17 at 17:00 Potassium Chloride (KCl) 30 meq ONCE ONCE PO Last administered on 01/22/17 09 :31; Start 01/22/17 at 09:15; Stop 01/22/17 at 09:16; Status DC Prednisone (Deltasone) 20 mg DAILY PO Last administered on 01/22/17 09:27; Start 01/22/17 at 09:00 Senna/Docusate Sodium (Liat-Colace) 1 tab BID PO Last administered on 22:11; Start 01/22/17 at 12:00 Sodium Biphosphate/ Sodium Phosphate 133 ml 133 ml UNSCH PRN PA CONSTIPATION; Start 01/22/17 at 12:45 Sodium Chloride (NS 1000 ml Inj) 1,000 ml @ 100 mls/hr Q10H IV Last administered on 01/22/17 14:28; Start 01/20/17 at 13:40; Status Hold Sodium Chloride (NS 500 ml Inj) 500 ml @ 30 mls/hr [id number] IV Last administered on 01/23/17 05:15; Start 01/23/17 at 05:15; Stop 01/24/17 at 05:14 Tamsulosin HCl (Flomax) 0.4 mg HS PO Last administered on 01/22/17 22:10; Start 01/20/17 at 21:00 Trazodone HCl (Desyrel) 25 mg HS PO Last administered on 01/22/17 22:11; Start 01/20/17 at 21:00 Vancomycin HCl 1000 mg/Sodium Chloride 250 ml @ 250 mls/hr ONCE STAT IV Last administered on 01/20/17 11:47; Start 01/20/17 at 10:59; Stop 01/20/17 at 11:58 ; Status DC Vancomycin HCl 1200 mg/Sodium Chloride 262 ml @ 250 mls/hr Q12H IV ; Start at 23:00; Stop 01/20/17 at 23:00; Status DC Vancomycin HCl/ Sodium Chloride (Vancomycin Inj/ NS 250 ml Inj) 262.5 ml @ 250 mls/hr Q24H IV Last administered on 01/22/17 14:27; Start 01/22/17 at 13:00 Urinary Catheter: No Vascular Central Line Catheter: No A/P Assessment and Plan Mr. Patel is an 89-year-old male presenting from [facility] with sepsis due to hospital-acquired pneumonia. He was noted to have coffee-ground emesis on 01/22, GI consulted and CT was obtained which showed no acute abnormalities. Discharge Planning Pending clinical improvement of hospital-acquired pneumonia and further workup per GI Problem List: (1) Coffee ground emesis Status: Acute Plan: Oct 2016 hospitalization had coffee ground emesis - CT showed "mild gastris distension and fluid-filled esophagitis" EGD at that time showed gastritis and esophagitis. -Trend H&H. It is stable at approximately 10/30 this morning -Type and Screen ordered 01/22 -CT abdomen/pelvis w/o contrast 01/22 showed: Few scattered diverticula. Copius stool in rectum. Mild distension of urinary bladder." Repeat abdominal Xray showed no evidence of bowel obstruction. -Change to IV PPI, 40 mg BID. -Consult GI, we appreciate their recommendations - scheduled for EGD on 01/23. -Zofran 4 mg q 6 hr PRN N/V held 01/23 - QTc interval 481 on most recent EKG -NG if necessary -Telemetry (2) Sepsis Status: Acute Plan: Met sepsis criteria on admission with tachypnea, leukocytosis, likely source of infection is hospital-acquired pneumonia. He has remained afebrile, tachycardia resolved. Mild leukocytosis persists at approximately 13K. Antibiotic management for hospital-acquired pneumonia: -Zosyn 3.375 q 6 given renal impairment 01/20/17-- -Vancomycin as dosed by pharmacy 01/20/17-- Symptom control as below: - Prednisone 40 mg by mouth daily -> reduced to 20 mg daily given GI bleed. - Breathing treatments with duo nebs every 6 hours - Supplemental oxygen as needed to keep O2 sats greater than 90% Wean as tolerated back to room air Urine legionella and strep pneumococcal antigens negative Nasal washing negative for influenza Blood cultures : no growth x 2 days. (3) HCAP (healthcare-associated pneumonia) Status: Acute Plan: Patient recently hospitalized and treated for pneumonia in 10/21. Broad- spectrum antibiotics started 01/20 as outlined above -Plan as above (4) CKD (chronic kidney disease) Status: Acute Plan: Patient with known chronic kidney disease with baseline creatinine 1.7- 2.0 - On admission creatinine was 1.76, at baseline on 01/22. Improved slightly today. Avoid nephrotoxic agents Consider gentle IV fluids if creatinine increases Monitor with daily lab work - stable. (5) HTN (hypertension) Status: Chronic Plan: Labile blood pressures ranging from 192/93 on admission to 140-200s systolic and 60s90s diastolic. This persists today. Patient is asymptomatic, noting that his blood pressures have been pretty high in the past, noting diastolic pressures in the 100s. Plan: Metoprolol 50 PO q 12hr PO Lisinopril 5 mg daily --> 10 mg daily starting 01/23 hydralazine 10 mg PO systolic > 160, diastolic > 90 required this morning Will also add an IV medication (Vasotec 1.25 mg IV PRN every 8 hours) given he is currently NPO, not to be concurrently administered with within 12 hours of PO lisinopril (6) Hx of ventricular tachycardia Status: Acute Plan: History of Bigemy and V. tach on previous admission Electrolytes WNL on admission. K 3.7, Sodium 139. Check Mag and Phos. Replete as necessary. Cardiac telemetry. Previously evaluated by Dr. Baltazar. Nuc stress showed no signs of ischemia in Nov 2016. ECHO during the same admission showed: Mild mitral valve regurgitation, and an EF of 55-60%. (7) History of GI bleed Status: Acute Plan: PPI 40 mg IV BID. Check Hemoccult stool. H&H stable. See above. (8) Debility Status: Acute Plan: Physical therapy to evaluate patient and work with him all in hospital Would consider palliative care if continuing to decline. (9) Constipation Status: Acute Plan: GI ordered MOM 30 ml x 1 and FLeats enema. He got 30 ml x 1 of MOM but did not recieve Fleats enema, if no BM by 1600 on would administer fleats enema. (10) Fluids, Electrolytes, Nutrition Status: Acute Plan: Fluids: 30 ml/hr NS Electrolytes: Monitor and replete as needed Nutrition: Reg basic diet after EGD. DVT ppx: Mechanical. Hold medical ppx given pos gi bleed. wdw Dr. Michel. Problem Qualifiers (1) Sepsis: Qualified Code: A41.9 - Sepsis, due to unspecified organism (2) HTN (hypertension): Qualified Code: I10 - Essential hypertension Stacy Nguyen MD R1 Jan 23, 2017 09:53
--- NOTE | 2017-01-23 11:29 | GIPROC ---
[facility] [address] [facility]. [facility], [id number] EGD PROCEDURE REPORT EXAM DATE: 01/23/2017 PATIENT NAME: Nic Patel MR #: [id number] BIRTHDATE: 1925 ATTENDING: Sarah Majano MD ORDER #: [id number] [place] TECHNICIAN: Osvaldo Echeverria and Olamide Shah STATUS: inpatient INDICATIONS: The patient is a 89 yr old male here for an EGD due to gi bleeding PROCEDURE PERFORMED: EGD w/ biopsy MEDICATIONS: None and Per Anesthesia. TOPICAL ANESTHETIC: none CONSENT: The patient understands the risks and benefits of the procedure and understands that these risks include, but are not limited to: sedation, allergic reaction, infection, perforation and/or bleeding. Alternative means of evaluation and treatment include, among others: physical exam, x-rays, and/or surgical intervention. The patient elects to proceed with this endoscopic procedure. medical equipment was checked for proper function. Hand hygiene and appropriate measures for infection prevention was taken. After the risks, benefits and alternatives of the procedure were thoroughly explained, Informed consent was verified, confirmed and timeout was successfully executed by the treatment team. The patient was anesthetized with topical anesthesia and the Pentax [id number] endoscope was introduced through the mouth and advanced to the second portion of the duodenum. Retroflexed views revealed a hiatal hernia The gastroscope was then slowly withdrawn and removed. Gastritis antrum-biopsy. ADVERSE EVENTS: There were no complications. IMPRESSIONS: 1. Gastritis antrum-biopsy 2. Retroflexed views revealed a hiatal hernia RECOMMENDATIONS: 1. Await biopsy results. Biopsy results will not be ready for 7-10 days. If you don't hear from us in two weeks, call our office for biopsy results. 2. Anti-reflux regimen 3. Continue PPI 4. Avoid NSAIDS 5. Keep npo until seen by speech pathology, than advance as recommended PATIENT CONDITION: stable DISPOSITION: Inpatient REPEAT EXAM: EGD pending biopsy results Sarah Majano MD eSigned: Sarah Majano MD 01/23/2017 11:28 AM cc:
[2017-01-23] MEDS ORDERED: PROPOFOL 200 MG/20 ML AMP IV ONE (11:35)
[2017-01-23] MEDS: PANTOPRAZOLE SODIUM 40 MG VIAL IV PUSH SCH ×2 (12:17→21:26)
[2017-01-23] MEDS: ENALAPRILAT 1.25 MG/ML VIAL IV PUSH PRN (12:18)
[2017-01-23] MEDS: SODIUM CHLORIDE 0.9% FLUSH 5 ML FLUSH FLUSH SCH ×2 (12:20→21:25)
[2017-01-23] MEDS: FERROUS SULFATE 325 MG (65 MG ELEMENTAL IRON) TAB PO SCH ×3 (13:00→18:17)
[2017-01-23] MEDS: VANCOMYCIN INJ 1,250 MG in SODIUM CHLOR 0.9% 250 ML INJ 250 ML IV SCH (14:21)
[2017-01-23] MEDS: POTASSIUM CHLORIDE 10 MEQ CONTROLLED RELEASE TAB PO SCH ×2 (14:31→21:28)
[2017-01-23] MEDS: LISINOPRIL 10 MG TAB PO SCH (14:31)
[2017-01-23] MEDS: ATORVASTATIN 20 MG TAB PO SCH ×2 (14:31→21:27)
[2017-01-23] MEDS: ALLOPURINOL 100 MG TAB PO SCH (14:31)
[2017-01-23] MEDS: predniSONE 20 MG TAB PO SCH (14:31)
[2017-01-23] MEDS: METOPROLOL TARTRATE 50 MG TAB PO SCH ×2 (14:31→21:26)
[2017-01-23] MEDS: cloNIDine HCL 0.1 MG TAB PO PRN (18:17)
[2017-01-23] MEDS: traZODone HCL 50 MG TAB PO SCH (21:26)
[2017-01-23] MEDS: TAMSULOSIN HCL 0.4 MG CAP PO SCH (21:27)
[2017-01-24] VITALS (9 sets, daily range): BP systolic 95–180; BP diastolic 59–90; PULSE 62–86; RESP 14–22; TEMP 96.7–98.3; O2SAT 93–96
[2017-01-24] MEDS: RESP: ALBUTEROL 2.5 MG/IPRATROPIUM 0.5 MG NEB (SCH) INH ×2 (04:45→09:04)
[2017-01-24] MEDS: PIPERACIL-TAZO 3.375 GM PREMIX 50 ML IV SCH ×4 (05:51→21:47)
--- NOTE | 2017-01-24 08:23 | HHI.FPPN ---
Subjective Remarks No complaints this morning. Denies fevers, chills, nausea, vomiting, respiratory symptoms. States the breathing treatments are helping a lot. Has some left flank and lower abdominal pain which he says is "mild" and states his last BM was prior to EGD yesterday morning. Last urine output was yesterday before bed. Denies feeling the need to void. Has eaten without difficulty since the procedure. On review of chart, noted that he does not have a bowel movement documented this hospital stay. (Stacy Nguyen MD R1) Objective Vitals Vital Signs Date Time Temp Pulse Resp B/P Pulse Ox O2 Delivery O2 Flow Rate FiO2 01/24/17 08:04 97.6 67 14 164/77 95 01/24/17 05:36 97.7 62 16 161/71 95 01/24/17 04:47 96 Nasal Cannula 2.00 01/24/17 01:05 98.3 70 20 165/76 95 01/23/17 21:45 2.00 01/23/17 20:09 97.4 16 158/68 93 01/23/17 19:28 60 172/82 Automatic Cuff 01/23/17 17:55 188/92 01/23/17 16:00 97.9 77 24 222/90 93 01/23/17 14:18 212/102 01/23/17 12:00 97.8 85 20 240/113 91 01/23/17 11:24 72 16 155/72 93 01/23/17 11:15 73 16 165/73 93 01/23/17 11:03 97.5 70 16 150/76 90 01/23/17 10:38 Nasal Cannula 2.00 01/23/17 09:30 97.3 68 20 186/86 98 I/O 01/23/17 01/23/17 01/23/17 01/24/17 01/24/17 01/24/17 07:00 15:00 23:00 07:00 15:00 23:00 Intake Total 290 ml 235 ml 232 ml Output Total 1175 ml 520 ml Balance -885 ml -285 ml 232 ml Intake Oral 240 ml IV Total 235 ml 232 ml Other 50 ml Output Urine Total 1175 ml 520 ml Bladder Scan Volume Amount 61 ml # Voids 1 # Bowel Movements 3 (Stacy Nguyen MD R1) Result Diagram: 01/23/17 0532 01/23/17 0532 Imaging Last 72 hours Impressions Abdomen X-Ray 01/23/17 0600 Signed Impressions: Service Date/Time: Monday, January 23, 2017 04:45 - CONCLUSION: No evidence for bowel obstruction. There is stool present in the rectum. Boston Bryant MD Abdomen/Pelvis CT 01/22/17 0000 Signed Impressions: Service Date/Time: Sunday, January 22, 2017 10:38 - CONCLUSION: 1. Few scattered diverticula. 2. Minimal fluid in left paracolic gutter. 3. Copious stool in the rectum. 4. Mild distention urinary bladder. 5. Right-sided renal cyst. 6. Small bilateral pleural effusions. 7. 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 8. Lateral bulging left abdominal wall. Eugenio Rodriguez MD Objective Remarks GENERAL: Elderly-appearing male, lying in bed in no apparent distress. He is comfortable without evidence of tremor which was noted yesterday SKIN: No rashes, ecchymoses or lesions. Cool and dry. EYES: Pupils equal round and reactive. NECK: Trachea midline. No JVD or lymphadenopathy. CARDIOVASCULAR: Distant heart sounds, however normal right rate and rhythm with no obvious murmur. RESPIRATORY: Patient is breathing comfortably on 2 L nasal cannula. Clear to auscultation bilaterally with some mild basilar wheezing, moderate air exchange GASTROINTESTINAL: Abdomen is not distended on exam. The abdomen is soft and bowel sounds are normal. No masses appreciated. He is mildly tender to deep palpation over the bladder and the left lower quadrant. MUSCULOSKELETAL: Extremities without clubbing, cyanosis, or edema. NEUROLOGICAL: Awake and alert. 2/5 strength left lower ext, 4/5 pharmacy service associate strength of left hand, sensation intact throughout. Medications and IVs Inpatient Medications Acetaminophen (Tylenol) 650 mg Q4H PRN PO SEE LABEL COMMENTS; Start 01/20/17 at 13:45 Albuterol Sulfate (Albuterol Neb) 2.5 mg Q2HR NEB PRN INH SHORTNESS OF BREATH; Start 01/20/17 at 14:00 Albuterol/ Ipratropium (Duoneb Neb) 1 ampule Q6HR NEB INH Last administered on 01/24/17t 09:04; Start 01/20/17 at 16:00 Allopurinol (Zyloprim) 100 mg DAILY PO Last administered on 01/24/17 08:42; Start 01/21/17 at 09:00 Aspirin (Ecotrin Ec) 81 mg DAILY PO Last administered on 01/21/17 08:14; Start 01/20/17 at 15:00; Status Hold Atorvastatin Calcium (Lipitor) 20 mg HS PO Last administered on 01/23/17 21:27 ; Start 01/20/17 at 21:00 Clonidine (Catapres) 0.1 mg Q6H PRN PO SBP>180, DBP>100 Last administered on 18:17; Start 01/23/17 at 16:15 Clopidogrel Bisulfate (Plavix) 75 mg DAILY PO Last administered on 01/21/17 08 :13; Start 01/20/17 at 15:00; Status Hold Enalaprilat (Vasotec Inj) 1.25 mg Q8H PRN IV PUSH SBP> OR = 180, DBP> OR = 100 Last administered on 01/23/17 12:18; Start 01/23/17 at 10:00 Enoxaparin Sodium (Lovenox Inj) 30 mg Q24H SQ Last administered on 01/20/17 15 :49; Start 01/20/17 at 15:00; Stop 01/20/17 at 20:17; Status DC Ferrous Sulfate (Ferrous Sulfate) 325 mg TID PO Last administered on 01/24/17 08:41; Start 01/20/17 at 18:00 Hydralazine HCl (Apresoline) 10 mg Q6HR PRN PO systolic >160, diastolic>90 Last administered on 01/23/17 04:33; Start 01/20/17 at 18:00 Insulin Human Regular (NovoLIN R INJ) See Protocol Table ... UNSCH X1 PRN SQ SEE PROTOCOL; Start 01/23/17 at 05:15; Stop 01/24/17 at 05:14; Status DC IV Flush (NS Flush) 2 ml BID FLUSH Last administered on 01/24/17 08:41; Start 01/20/17 at 21:00 Lactated Ringer's 1,000 ml @ 30 mls/hr Q24H IV Last administered on 01/23/17 09:45; Start 01/23/17 at 05:15 Lisinopril (Prinivil) 10 mg DAILY PO Last administered on 01/24/17 08:42; Start 01/23/17 at 09:00 Lorazepam 0.5 mg 0.5 mg Q6H PRN IVS MODERATE TO SEVERE ANXIETY; Start 01/20/17 at 13:45 Magnesium Hydroxide (Milk Of Magnesia Liq) 30 ml DAILY PRN PO constipation; Start 01/22/17 at 12:45 Metoprolol Tartrate (Lopressor) 50 mg Q12HR PO Last administered on 01/24/17 08:42; Start 01/20/17 at 21:00 Miscellaneous 1 ea 1 ea UNSCH PRN OTHER SEE LABEL COMMENTS; Start 01/20/17 at 21:00 Ondansetron HCl (Zofran Inj) 4 mg Q6HR PRN IV PUSH NAUSEA OR VOMITING; Start at 09:15; Status Hold Pantoprazole Sodium (Protonix) 40 mg DAILY PO Last administered on 01/21/17 08 :14; Start 01/20/17 at 18:00; Stop 01/22/17 at 08:48; Status DC Pantoprazole Sodium 40 mg 40 mg Q12HR IV PUSH Last administered on 01/24/17 08 :41; Start 01/22/17 at 21:00 Pharmacy Profile Note (Vancomycin Consult Pharmacy) ml @ 0 mls/hr UNSCH XX ; Start 01/20/17 at 14:30 Piperacillin Sod/ Tazobactam Sod (Zosyn 3.375 Gm Premix) 50 ml @ 200 mls/hr Q6H IV Last administered on 01/24/17 05:51; Start 01/20/17 at 17:00 Potassium Chloride (KCl) 30 meq ONCE ONCE PO Last administered on 01/22/17 09 :31; Start 01/22/17 at 09:15; Stop 01/22/17 at 09:16; Status DC Prednisone (Deltasone) 20 mg DAILY PO Last administered on 01/24/17 08:42; Start 01/22/17 at 09:00 Senna/Docusate Sodium (Liat-Colace) 1 tab BID PO Last administered on 08:42; Start 01/22/17 at 12:00 Sodium Biphosphate/ Sodium Phosphate 133 ml 133 ml UNSCH PRN MT CONSTIPATION; Start 01/22/17 at 12:45 Sodium Chloride (NS 1000 ml Inj) 1,000 ml @ 100 mls/hr Q10H IV Last administered on 01/22/17 14:28; Start 01/20/17 at 13:40; Status Hold Sodium Chloride (NS 500 ml Inj) 500 ml @ 30 mls/hr [id number] IV Last administered on 01/23/17 05:15; Start 01/23/17 at 05:15; Stop 01/24/17 at 05:14 ; Status DC Tamsulosin HCl (Flomax) 0.4 mg HS PO Last administered on 01/23/17 21:27; Start 01/20/17 at 21:00 Trazodone HCl (Desyrel) 25 mg HS PO Last administered on 01/23/17 21:26; Start 01/20/17 at 21:00 Vancomycin HCl 1000 mg/Sodium Chloride 250 ml @ 250 mls/hr ONCE STAT IV Last administered on 01/20/17 11:47; Start 01/20/17 at 10:59; Stop 01/20/17 at 11:58 ; Status DC Vancomycin HCl 1200 mg/Sodium Chloride 262 ml @ 250 mls/hr Q12H IV ; Start at 23:00; Stop 01/20/17 at 23:00; Status DC Vancomycin HCl/ Sodium Chloride (Vancomycin Inj/ NS 250 ml Inj) 262.5 ml @ 250 mls/hr Q24H IV Last administered on 01/23/17 14:21; Start 01/22/17 at 13:00; Status Hold (Stacy Nguyen MD R1) Urinary Catheter: No (Stacy Nguyen MD R1) Vascular Central Line Catheter: No (Stacy Nguyen MD R1) A/P Assessment and Plan Mr. Patel is an 89-year-old male presenting from long term with sepsis due to hospital-acquired pneumonia. Medical problems include hypertension, history of prostate cancer, history of gastritis, HAP in October 2016. He is placed on vancomycin and Zosyn at admission on 01/20. He was noted to have coffee-ground emesis on 01/22, GI consulted and CT was obtained which showed no acute abnormalities. EGD was performed on 01/23/17 notable for gastritis, hiatal hernia , and biopsy is pending. He continues to be medically managed for hospital- acquired pneumonia and gastritis. Discharge Planning Pending clinical improvement of hospital-acquired pneumonia symptoms (i.e., oxygen requirement) and GI recs for discharge. He also needs to have a bowel movement. He will return to SNF, 3008 in chart (Stacy Nguyen MD R1) Attending Attestation Patient examined and case discussed with resident physicians I have read the above note and agree with the assessment/plan is discussed with me I was involved in all medical decision making for this patient Ryder Michel M.D. (Ryder Michel MD) Problem List: (1) Coffee ground emesis Status: Resolved Plan: Oct 2016 hospitalization had coffee ground emesis - CT showed "mild gastris distension and fluid-filled esophagitis" EGD at that time showed gastritis and esophagitis. -Trend H&H. Stable at 10.1 yesterday, CBC pending today -Type and Screen ordered 01/22 -CT abdomen/pelvis w/o contrast 01/22 showed: Few scattered diverticula. Copius stool in rectum. Mild distension of urinary bladder." Repeat abdominal Xray showed no evidence of bowel obstruction. -Change to IV PPI, 40 mg BID on 02/01 -Consult GI, we appreciate their recommendations - EGD performed 01/23 notable for gastritis of the antrum and hiatal hernia. Recommendations were to continue PPI and antireflux regimen, avoid NSAIDs. -Speech therapy saw patient on 01/23, clear for regular diet, thin liquids, no speech therapy needed after discharge -Zofran 4 mg q 6 hr PRN N/V held 01/23 - QTc interval 481 on most recent EKG -Telemetry showing bradycardia of 55, no other acute events (2) Sepsis Status: Acute Plan: Met sepsis criteria on admission with tachypnea, leukocytosis, likely source of infection is hospital-acquired pneumonia. He has remained afebrile, tachycardia resolved. Mild leukocytosis persists at approximately 13K persists. Antibiotic management for hospital-acquired pneumonia: -Zosyn 3.375 q 6 given renal impairment 01/20/17-- -Vancomycin as dosed by pharmacy 01/20/17-- -Likely will continue antibiotics at discharge, possibly IV Symptom control as below: - Prednisone 40 mg by mouth daily -> reduced to 20 mg daily given GI bleed. - Breathing treatments with duo nebs every 6 hours - Supplemental oxygen as needed to keep O2 sats greater than 90% Wean as tolerated back to room air, currently requiring 2L by nasal cannula Urine legionella and strep pneumococcal antigens negative Nasal washing negative for influenza Blood cultures : no growth x 3 days. (3) HCAP (healthcare-associated pneumonia) Status: Acute Plan: Patient recently hospitalized and treated for pneumonia in 10/21. Broad- spectrum antibiotics started 01/20 as outlined above -Plan as above (4) CKD (chronic kidney disease) Status: Acute Plan: Patient with known chronic kidney disease with baseline creatinine 1.7- 2.0 - On admission creatinine was 1.76, at baseline on 01/22. Improved slightly since admission Monitor BMP Avoid nephrotoxic agents Consider gentle IV fluids if creatinine increases (5) HTN (hypertension) Status: Chronic Plan: Labile blood pressures ranging from 192/93 on admission to 140-200s systolic and 60s90s diastolic. This persists today but overall improvement of BP to 160s over 70s since the evening of 01/23. Patient is asymptomatic, noting that his blood pressures have been pretty high in the past, noting diastolic pressures in the 100s. Plan: Metoprolol 50 PO q12hr home dose Lisinopril 5 mg daily --> 10 mg daily 01/23. Will increase lisinopril to 20mg daily on 01/24 Hydralazine 10 mg PO systolic > 160, diastolic > 90, required on 01/23 Vasotec 1.25 mg IV PRN every 8 hours if NPO, not to be concurrently administered with within 12 hours of PO lisinopril (6) Hx of ventricular tachycardia Status: Acute Plan: History of Bigemy and V. tach on previous admission Electrolytes WNL on admission. K 3.7, Sodium 139. Check Mag and Phos. Replete as necessary. Cardiac telemetry. Previously evaluated by Dr. Baltazar. Nuc stress showed no signs of ischemia in Nov 2016. ECHO during the same admission showed: Mild mitral valve regurgitation, and an EF of 55-60%. (7) History of GI bleed Status: Acute Plan: PPI 40 mg IV BID. Check Hemoccult stool. H&H stable. See above. (8) Debility Status: Acute Plan: Presented from [facility] Physical therapy to evaluate patient and work with him while inpatient Would consider palliative care if continuing to decline. (9) Constipation Status: Acute Plan: GI ordered MOM 30 ml x 1 and FLeets enema on 01/22 He got 30 ml x 1 of MOM but did not receive Fleets enema EGD performed 01/23, patient reports no bowel movement since then and no bowel movement documented in EMR We'll give milk of magnesia this morning and fleets enema 1, monitor output, escalate as needed (10) Fluids, Electrolytes, Nutrition Status: Acute Plan: Fluids: 30 ml/hr NS Electrolytes: Monitor and replete as needed Nutrition: Reg basic diet DVT ppx: Mechanical. Hold medical ppx given pos gi bleed. wdw Dr. Michel. (Stacy Nguyen MD R1) Problem Qualifiers (1) Sepsis: Qualified Code: A41.9 - Sepsis, due to unspecified organism (2) HTN (hypertension): Qualified Code: I10 - Essential hypertension Stacy Nguyen MD R1 Jan 24, 2017 08:23 Ryder Michel MD Jan 24, 2017 09:52
[2017-01-24] MEDS: FERROUS SULFATE 325 MG (65 MG ELEMENTAL IRON) TAB PO SCH ×3 (08:41→17:03)
[2017-01-24] MEDS: PANTOPRAZOLE SODIUM 40 MG VIAL IV PUSH SCH ×2 (08:41→21:47)
[2017-01-24] MEDS: SODIUM CHLORIDE 0.9% FLUSH 5 ML FLUSH FLUSH SCH ×2 (08:41→21:00)
[2017-01-24] MEDS: predniSONE 20 MG TAB PO SCH (08:42)
[2017-01-24] MEDS: LISINOPRIL 10 MG TAB PO SCH (08:42)
[2017-01-24] MEDS: DOCUSATE SODIUM 50 MG/SENNA 8.6 MG TAB PO SCH ×2 (08:42→21:46)
[2017-01-24] MEDS: METOPROLOL TARTRATE 50 MG TAB PO SCH ×2 (08:42→21:46)
[2017-01-24] MEDS: ALLOPURINOL 100 MG TAB PO SCH (08:42)
[2017-01-24] MEDS: POTASSIUM CHLORIDE 10 MEQ CONTROLLED RELEASE TAB PO SCH ×2 (08:42→21:46)
[2017-01-24 09:42] LABS: AUTOMATED NEUTROPHIL # 12.9 TH/MM3 (1.8-7.7); BASOPHIL % 0.1 % (0.0-2.0); HEMATOCRIT 33.2 % (39.0-51.0); HEMO FLAGS DIFF FINAL; LYMPH % 5.1 % (9.0-44.0); LYMPHOCYTE # 0.7 TH/MM3 (1.0-4.8); MEAN CELL VOLUME 93.3 FL (80.0-100.0); MEAN CORPUSCULAR HEMOGLOBIN 32.5 PG (27.0-34.0); MEAN CORPUSCULAR HGB CONC 34.8 % (32.0-36.0); MONO % 3.5 % (0.0-8.0); NEUT % 91.3 % (16.0-70.0); PLATELET COUNT 145 TH/MM3 (150-450); RED BLOOD COUNT 3.56 MIL/MM3 (4.50-5.90); RED CELL DISTRIBUTION WIDTH 14.1 % (11.6-17.2); WHITE BLOOD COUNT 14.1 TH/MM3 (4.0-11.0)
[2017-01-24 09:51] LABS: BICARBONATE 21.9 MEQ/L (21.0-32.0); POTASSIUM 3.8 MEQ/L (3.5-5.1)
[2017-01-24] MEDS ORDERED: BISACODYL 10 MG SUPP RECTAL ONE (10:00)
--- NOTE | 2017-01-24 10:42 | RADRPT ---
EXAM DATE/TIME: 01/24/2017 09:25 [facility] COMPARISON: CT ABDOMEN & PELVIS W/O CONTRAST, January 22, 2017, 10:38. CHEST SINGLE AP, January 21, 2017, 9:58. INDICATIONS: Pneumonia. MEDICAL HISTORY: Congestive heart failure. Gastroesophageal reflux disease SURGICAL HISTORY: None. ENCOUNTER: Subsequent ACUITY: 4 - 6 days PAIN SCORE: 0/10 LOCATION: Bilateral chest FINDINGS: The heart is stable in size and appearance. Minimal bibasilar patchiness is noted consistent with at electasis and/or infiltrates. Clinical correlation is recommended. Tiny bilateral pleural effusions are likely. Mild degenerative changes are noted throughout the thoracic spine. CONCLUSION: 1. Bibasilar patchiness consistent with atelectasis and/or infiltrates. 2. Tiny bilateral pleural effusions. Guillaume Lee MD on January 24, 2017 at 10:01 Board Certified Radiologist. This report was verified electronically.
[2017-01-24] MEDS ORDERED: POTASSIUM PHOSPHATE MONOBASIC 500 MG TAB PO ONE ×2 (11:00→18:00)
[2017-01-24] MEDS: MAGNESIUM HYDROXIDE SUSP 30 ML CUP PO SCH (11:33)
[2017-01-24] MEDS: traZODone HCL 50 MG TAB PO SCH (21:00)
[2017-01-24] MEDS: ATORVASTATIN 20 MG TAB PO SCH (21:46)
[2017-01-24] MEDS: TAMSULOSIN HCL 0.4 MG CAP PO SCH (21:46)
[2017-01-25] VITALS (8 sets, daily range): BP systolic 153–192; BP diastolic 71–93; PULSE 56–65; RESP 16–22; TEMP 97.4–98.7; O2SAT 94–100
[2017-01-25] MEDS: PIPERACIL-TAZO 3.375 GM PREMIX 50 ML IV SCH ×4 (04:20→22:42)
[2017-01-25] MEDS: cloNIDine HCL 0.1 MG TAB PO PRN (04:32)
[2017-01-25 08:11] LABS: AUTOMATED NEUTROPHIL # 16.4 TH/MM3 (1.8-7.7); BASOPHIL % 0.2 % (0.0-2.0); EOSINOPHIL % 0.1 % (0.0-4.0); LYMPH % 3.8 % (9.0-44.0); LYMPHOCYTE # 0.7 TH/MM3 (1.0-4.8); MEAN CELL VOLUME 93.2 FL (80.0-100.0); MEAN CORPUSCULAR HEMOGLOBIN 31.4 PG (27.0-34.0); MEAN CORPUSCULAR HGB CONC 33.7 % (32.0-36.0); MONO % 4.7 % (0.0-8.0); NEUT % 91.2 % (16.0-70.0); PLATELET COUNT 147 TH/MM3 (150-450); RED BLOOD COUNT 3.32 MIL/MM3 (4.50-5.90); RED CELL DISTRIBUTION WIDTH 14.3 % (11.6-17.2)
[2017-01-25 08:14] LABS: HEMO FLAGS AUTO DIFF
[2017-01-25 09:06] LABS: BICARBONATE 26.6 MEQ/L (21.0-32.0); MAGNESIUM 2.3 MG/DL (1.5-2.5)
[2017-01-25 09:24] LABS: SCAN/DIFF AUTO DIFF CONFIRMED
[2017-01-25] MEDS: PANTOPRAZOLE SODIUM 40 MG VIAL IV PUSH SCH (09:39)
[2017-01-25] MEDS: MAGNESIUM HYDROXIDE SUSP 30 ML CUP PO SCH (09:39)
[2017-01-25] MEDS: POTASSIUM CHLORIDE 10 MEQ CONTROLLED RELEASE TAB PO SCH ×2 (09:40→21:25)
[2017-01-25] MEDS: predniSONE 20 MG TAB PO SCH (09:40)
[2017-01-25] MEDS: DOCUSATE SODIUM 50 MG/SENNA 8.6 MG TAB PO SCH ×2 (09:40→21:25)
[2017-01-25] MEDS: SODIUM CHLORIDE 0.9% FLUSH 5 ML FLUSH FLUSH SCH ×2 (09:40→21:39)
[2017-01-25] MEDS: LISINOPRIL 10 MG TAB PO SCH (09:40)
[2017-01-25] MEDS: ALLOPURINOL 100 MG TAB PO SCH (09:40)
[2017-01-25] MEDS: METOPROLOL TARTRATE 50 MG TAB PO SCH ×2 (09:40→21:25)
[2017-01-25] MEDS: FERROUS SULFATE 325 MG (65 MG ELEMENTAL IRON) TAB PO SCH ×3 (09:40→17:11)
--- NOTE | 2017-01-25 10:46 | HHI.GIFU ---
Subjective Remarks Patient resting in bed. Denies any nausea, vomiting, abdominal pain. States he is tolerating his diet. No bleeding. Objective Vitals I&O Vital Signs Date Time Temp Pulse Resp B/P Pulse Ox O2 Delivery O2 Flow Rate FiO2 01/25/17 09:20 Nasal Cannula 2.00 01/25/17 05:52 179/93 01/25/17 04:00 98.0 65 22 190/90 95 01/25/17 00:00 98.0 64 22 153/71 94 01/24/17 20:50 2.00 01/24/17 20:01 74 01/24/17 20:00 98.2 70 22 180/90 93 01/24/17 16:30 98.3 86 20 95/59 95 01/24/17 11:10 96.7 67 14 137/63 95 I/O 01/24/17 01/24/17 01/24/17 01/25/17 01/25/17 01/25/17 07:00 15:00 23:00 07:00 15:00 23:00 Intake Total 232 ml 228 ml 258 ml Balance 232 ml 228 ml 258 ml Intake Oral 120 ml IV Total 232 ml 108 ml 258 ml # Voids 3 3 # Bowel Movements 1 2 Laboratory Laboratory Tests Test 01/25/17 07:27 White Blood Count 18.0 Red Blood Count 3.32 Hemoglobin 10.5 Hematocrit 31.0 Mean Corpuscular Volume 93.2 Mean Corpuscular Hemoglobin 31.4 Mean Corpuscular Hemoglobin 33.7 Concent Red Cell Distribution Width 14.3 Platelet Count 147 Mean Platelet Volume 9.2 Neutrophils (%) (Auto) 91.2 Lymphocytes (%) (Auto) 3.8 Monocytes (%) (Auto) 4.7 Eosinophils (%) (Auto) 0.1 Basophils (%) (Auto) 0.2 Neutrophils # (Auto) 16.4 Lymphocytes # (Auto) 0.7 Monocytes # (Auto) 0.8 Eosinophils # (Auto) 0.0 Basophils # (Auto) 0.0 CBC Comment AUTO DIFF Differential Comment AUTO DIFF CONFIRMED Sodium Level 143 Potassium Level 4.0 Chloride Level 109 Carbon Dioxide Level 26.6 Anion Gap 7 Blood Urea Nitrogen 23 Creatinine 1.92 Estimat Glomerular Filtration 33 Rate Random Glucose 109 Calcium Level 9.2 Phosphorus Level 1.7 Magnesium Level 2.3 Random Vancomycin Level 16.7 Date/Time Procedure Status Source Growth 01/20/17 18:20 Legionella Antigen - Final Complete Urine Catheterized Urine PRESUMPTIVE NEGATIVE FOR LEGIONELLA P... 01/20/17 18:20 Streptococcus pneumoniae Antigen (M - Final Complete Urine Catheterized Urine PRESUMPTIVE NEGATIVE FOR STREPTOCOCCU... 01/20/17 14:00 Influenza Types A,B Antigen (MAGO) - Final Complete Nasal Washing NEGATIVE FOR FLU A AND B ANTIGEN.... 01/20/17 11:00 Aerobic Blood Culture - Preliminary Resulted Blood Peripheral NO GROWTH IN 4 DAYS 01/20/17 11:00 Anaerobic Blood Culture - Preliminary Resulted Blood Peripheral NO GROWTH IN 4 DAYS Imaging Last Impressions Chest X-Ray 01/24/17 0000 Signed Impressions: Service Date/Time: Tuesday, January 24, 2017 09:25 - CONCLUSION: 1. Bibasilar patchiness consistent with atelectasis and/or infiltrates. 2. Tiny bilateral pleural effusions. Guillaume Lee MD Abdomen X-Ray 01/23/17 0600 Signed Impressions: Service Date/Time: Monday, January 23, 2017 04:45 - CONCLUSION: No evidence for bowel obstruction. There is stool present in the rectum. Boston Bryant MD Abdomen/Pelvis CT 01/22/17 0000 Signed Impressions: Service Date/Time: Sunday, January 22, 2017 10:38 - CONCLUSION: 1. Few scattered diverticula. 2. Minimal fluid in left paracolic gutter. 3. Copious stool in the rectum. 4. Mild distention urinary bladder. 5. Right-sided renal cyst. 6. Small bilateral pleural effusions. 7. 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 8. Lateral bulging left abdominal wall. Eugenio Rodriguez MD Physical Exam HEENT: Normocephalic; atraumatic; no jaundice. CHEST: CTA CARDIAC: RRR ABDOMEN: Soft, nondistended, nontender; no hepatosplenomegaly; bowel sounds are present in all four quadrants. EXTREMITIES: No clubbing, cyanosis, or edema. SKIN: Generalized pallor MOLD COOLER: Lethargic. Assessment and Plan Plan ASSESSMENT: - Nausea/vomiting and coffee-ground emesis. Pt with hx of coffee-ground emesis during his recent hospitalization in 10/2016-11/2016 and underwent evaluation with EGD on 11/04/16 which noted esophagitis and gastritis. About 5 days prior to this admission the pt had one episode of vomiting, nonbloody emesis. His daughter reports that he does have some occasional coughing/choking when he eats since his previous stroke. Nursing staff today states that the pt has had a poor appetite and did not eat breakfast. He had an episode of vomiting this morning with dark coffee-ground emesis reported by the doctor of nursing practice but pt is insisting that it was red blood. 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 S/P EGD (01/23/17 )----> gastritis antrum, retroflexed views revealed a hiatal hernia. Pathology with mild chronic gastritis, negative for Helicobacter pylori. No active bleeding currently. H/H stable 10.5/31.0. No n/v, tolerating diet. No bleeding. pProtonix 40mg IV BID. Zofran - Constipation. Pt with copious amount of stool in the rectum on CT scan. This may be contributing to his vomiting. Pericolace BID, MOM. + BM. - HTN, PNA ? Aspiration, CKD, Dementia, hx of v. tach per primary PLAN: - BUTCH - D/C Protonix IV - Protonix 40mg po daily - Zofran PRN - Cont. Pericolace BID - D/C MOM - Miralax 17 gram po daily - GI will sign off, please reconsult as needed - The pt was seen and examined by myself and Dr. Majano, this note was written on her behalf. Marlen Carty Jan 25, 2017 10:46
[2017-01-25] MEDS ORDERED: VANCOMYCIN INJ 1,250 MG in SODIUM CHLOR 0.9% 250 ML INJ 250 ML IV ONE (11:00)
--- NOTE | 2017-01-25 12:16 | HHI.FPPN ---
Subjective Remarks Patient was seen and examined this morning. He is breathing comfortably, still on NC 2L satting 100%. His daughter is at bedside, and notes he is not urinating as much in the last week as he used to. Note that he has a history of prostate cancer from about a decade ago and worries that this may be recurring. The patient states he is not uncomfortable. Last urine output 01/24. Last BM . (Stacy Nguyen MD R1) Objective Vitals Vital Signs Date Time Temp Pulse Resp B/P Pulse Ox O2 Delivery O2 Flow Rate FiO2 01/25/17 09:20 Nasal Cannula 2.00 01/25/17 05:52 179/93 01/25/17 04:00 98.0 65 22 190/90 95 01/25/17 00:00 98.0 64 22 153/71 94 01/24/17 20:50 2.00 01/24/17 20:01 74 01/24/17 20:00 98.2 70 22 180/90 93 01/24/17 16:30 98.3 86 20 95/59 95 I/O 01/24/17 01/24/17 01/24/17 01/25/17 01/25/17 01/25/17 07:00 15:00 23:00 07:00 15:00 23:00 Intake Total 232 ml 228 ml 258 ml Balance 232 ml 228 ml 258 ml Intake Oral 120 ml IV Total 232 ml 108 ml 258 ml # Voids 3 3 # Bowel Movements 1 2 (Stacy Nguyen MD R1) Result Diagram: 01/25/17 0727 01/25/17 0727 Imaging Last Impressions Chest X-Ray 01/24/17 0000 Signed Impressions: Service Date/Time: Tuesday, January 24, 2017 09:25 - CONCLUSION: 1. Bibasilar patchiness consistent with atelectasis and/or infiltrates. 2. Tiny bilateral pleural effusions. Guillaume Lee MD Abdomen X-Ray 01/23/17 0600 Signed Impressions: Service Date/Time: Monday, January 23, 2017 04:45 - CONCLUSION: No evidence for bowel obstruction. There is stool present in the rectum. Boston Bryant MD Abdomen/Pelvis CT 01/22/17 0000 Signed Impressions: Service Date/Time: Sunday, January 22, 2017 10:38 - CONCLUSION: 1. Few scattered diverticula. 2. Minimal fluid in left paracolic gutter. 3. Copious stool in the rectum. 4. Mild distention urinary bladder. 5. Right-sided renal cyst. 6. Small bilateral pleural effusions. 7. 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 8. Lateral bulging left abdominal wall. Eugenio Rodriguez MD Objective Remarks GENERAL: Elderly-appearing male, lying in bed in no apparent distress. He is comfortable without evidence of tremor which was noted yesterday SKIN: No rashes, ecchymoses or lesions. Cool and dry. EYES: Pupils equal round and reactive. NECK: Trachea midline. No JVD or lymphadenopathy. CARDIOVASCULAR: Distant heart sounds, however normal right rate and rhythm with no obvious murmur. RESPIRATORY: Patient is breathing comfortably on 2 L nasal cannula. Clear to auscultation bilaterally with some mild basilar wheezing, moderate air exchange GASTROINTESTINAL: Abdomen is not distended on exam. The abdomen is soft and bowel sounds are normal. No masses appreciated. He is mildly tender to deep palpation over the bladder and the left lower quadrant. MUSCULOSKELETAL: Extremities without clubbing, cyanosis, or edema. NEUROLOGICAL: Awake and alert. 2/5 strength left lower ext, 4/5 basket grader strength of left hand, sensation intact throughout. Medications and IVs Inpatient Medications Acetaminophen (Tylenol) 650 mg Q4H PRN PO SEE LABEL COMMENTS; Start 01/20/17 at 13:45 Albuterol Sulfate (Albuterol Neb) 2.5 mg Q2HR NEB PRN INH SHORTNESS OF BREATH; Start 01/20/17 at 14:00 Albuterol/ Ipratropium (Duoneb Neb) 1 ampule Q6HR NEB INH Last administered on 01/24/17 09:04; Start 01/20/17 at 16:00; Stop 01/24/17 at 16:00; Status DC Allopurinol (Zyloprim) 100 mg DAILY PO Last administered on 01/25/17 09:40; Start 01/21/17 at 09:00 Amlodipine Besylate (Norvasc) 5 mg DAILY PO Last administered on 01/25/17 16: 14; Start 01/25/17 at 15:30 Aspirin (Ecotrin Ec) 81 mg DAILY PO Last administered on 01/21/17 08:14; Start 01/20/17 at 15:00; Status Hold Atorvastatin Calcium (Lipitor) 20 mg HS PO Last administered on 01/24/17 21:46 ; Start 01/20/17 at 21:00 Bisacodyl (Dulcolax Supp) 10 mg ONCE ONCE RECTAL Last administered on 11:32; Start 01/24/17 at 10:00; Stop 01/24/17 at 10:01; Status DC Clonidine (Catapres) 0.1 mg Q6H PRN PO SBP>180, DBP>100 Last administered on 04:32; Start 01/23/17 at 16:15 Clopidogrel Bisulfate (Plavix) 75 mg DAILY PO Last administered on 01/21/17 08 :13; Start 01/20/17 at 15:00; Status Hold Enalaprilat (Vasotec Inj) 1.25 mg Q8H PRN IV PUSH SBP> OR = 180, DBP> OR = 100 Last administered on 01/23/17 12:18; Start 01/23/17 at 10:00 Enoxaparin Sodium (Lovenox Inj) 30 mg Q24H SQ Last administered on 01/20/17 15 :49; Start 01/20/17 at 15:00; Stop 01/20/17 at 20:17; Status DC Ferrous Sulfate (Ferrous Sulfate) 325 mg TID PO Last administered on 01/25/17 12:30; Start 01/20/17 at 18:00 Hydralazine HCl (Apresoline) 10 mg Q6HR PRN PO systolic >160, diastolic>90 Last administered on 01/23/17 04:33; Start 01/20/17 at 18:00 Insulin Human Regular (NovoLIN R INJ) See Protocol Table ... UNSCH X1 PRN SQ SEE PROTOCOL; Start 01/23/17 at 05:15; Stop 01/24/17 at 05:14; Status DC IV Flush (NS Flush) 2 ml BID FLUSH Last administered on 01/25/17 09:40; Start 01/20/17 at 21:00 Lactated Ringer's 1,000 ml @ 30 mls/hr Q24H IV Last administered on 01/23/17 09:45; Start 01/23/17 at 05:15 Lisinopril (Prinivil) 10 mg ONCE ONCE PO Last administered on 01/25/17 14:31 ; Start 01/25/17 at 14:00; Stop 01/25/17 at 14:01; Status DC Lorazepam 0.5 mg 0.5 mg Q6H PRN IVS MODERATE TO SEVERE ANXIETY; Start 01/20/17 at 13:45 Magnesium Hydroxide (Milk Of Magnesia Liq) 30 ml DAILY PO Last administered on 01/25/17 09:39; Start 01/24/17 at 10:00; Stop 01/25/17 at 10:47; Status DC Metoprolol Tartrate (Lopressor) 50 mg Q12HR PO Last administered on 01/25/17 09:40; Start 01/20/17 at 21:00 Miscellaneous 1 ea 1 ea UNSCH PRN OTHER SEE LABEL COMMENTS; Start 01/20/17 at 21:00 Ondansetron HCl (Zofran Inj) 4 mg Q6HR PRN IV PUSH NAUSEA OR VOMITING; Start at 09:15; Status Hold Pantoprazole Sodium (Protonix Inj) 40 mg Q12HR IV PUSH Last administered on 09:39; Start 01/22/17 at 21:00; Stop 01/25/17 at 10:47; Status DC Pantoprazole Sodium (Protonix) 40 mg DAILY PO ; Start 01/26/17 at 09:00 Pharmacy Profile Note (Vancomycin Consult Pharmacy) ml @ 0 mls/hr UNSCH XX ; Start 01/20/17 at 14:30 Piperacillin Sod/ Tazobactam Sod (Zosyn 3.375 Gm Premix) 50 ml @ 200 mls/hr Q6H IV Last administered on 01/25/17 16:17; Start 01/20/17 at 17:00 Polyethylene Glycol (Miralax) 17 gm DAILY PO ; Start 01/26/17 at 09:00 Potassium Phosphate (K-Phos) 500 mg ONCE ONCE PO Last administered on 11:32; Start 01/24/17 at 11:00; Stop 01/24/17 at 11:01; Status DC Potassium Phosphate 500 mg 500 mg ONCE ONCE PO Last administered on 01/24/17 17:03; Start 01/24/17 at 18:00; Stop 01/24/17 at 18:01; Status DC Potassium Chloride (KCl) 30 meq ONCE ONCE PO Last administered on 01/22/17 09 :31; Start 01/22/17 at 09:15; Stop 01/22/17 at 09:16; Status DC Prednisone (Deltasone) 20 mg DAILY PO Last administered on 01/25/17 09:40; Start 01/22/17 at 09:00 Senna/Docusate Sodium (Liat-Colace) 1 tab BID PO Last administered on 09:40; Start 01/22/17 at 12:00 Sodium Biphosphate/ Sodium Phosphate 133 ml 133 ml UNSCH PRN [place] CONSTIPATION; Start 01/22/17 at 12:45 Sodium Chloride (NS 1000 ml Inj) 1,000 ml @ 100 mls/hr Q10H IV Last administered on 01/22/17 14:28; Start 01/20/17 at 13:40; Status Hold Sodium Chloride (NS 500 ml Inj) 500 ml @ 30 mls/hr [id number] IV Last administered on 01/23/17 05:15; Start 01/23/17 at 05:15; Stop 01/24/17 at 05:14 ; Status DC Tamsulosin HCl (Flomax) 0.4 mg HS PO Last administered on 01/24/17 21:46; Start 01/20/17 at 21:00 Trazodone HCl (Desyrel) 25 mg HS PO Last administered on 01/24/17 21:00; Start 01/20/17 at 21:00 Vancomycin HCl 1000 mg/Sodium Chloride 250 ml @ 250 mls/hr ONCE STAT IV Last administered on 01/20/17 11:47; Start 01/20/17 at 10:59; Stop 01/20/17 at 11:58 ; Status DC Vancomycin HCl 1200 mg/Sodium Chloride 262 ml @ 250 mls/hr Q12H IV ; Start at 23:00; Stop 01/20/17 at 23:00; Status DC Vancomycin HCl/ Sodium Chloride (Vancomycin Inj/ NS 250 ml Inj) 262.5 ml @ 250 mls/hr ONCE ONCE IV Last administered on 01/25/17 11:00; Start 01/25/17 at 11 :00; Stop 01/25/17 at 12:02; Status DC (Stacy Nguyen MD R1) Urinary Catheter: No (Stacy Nguyen MD R1) Vascular Central Line Catheter: No (Stacy Nguyen MD R1) A/P Assessment and Plan Mr. Patel is an 89-year-old male presenting from skilled nursing with sepsis due to hospital-acquired pneumonia. Medical problems include hypertension, history of prostate cancer, history of gastritis, HAP in October 2016. He is placed on vancomycin and Zosyn at admission on 01/20. He was noted to have coffee-ground emesis on 01/22, GI consulted and CT was obtained which showed no acute abnormalities. EGD was performed on 01/23/17 notable for gastritis, hiatal hernia , and biopsy is pending. He continues to be medically managed for hospital- acquired pneumonia and gastritis. Discharge Planning Pending clinical improvement of hospital-acquired pneumonia symptoms (i.e., oxygen requirement) and GI recs for discharge. He also needs to have a bowel movement. He will return to SNF, 3008 in chart (Stacy Nguyen MD R1) Attending Attestation Pt. examined and case discussed with resident physician I have read the above note and agree with the assessment/plan as discussed with me I was involved in all medical decision making for this patient Ryder Michel MD (Ryder Michel MD) Problem List: (1) HCAP (healthcare-associated pneumonia) Status: Acute Plan: Patient recently hospitalized and treated for pneumonia in 10/21. Broad- spectrum antibiotics started 01/20 due to concern for recurrence of HAP as outlined below: Met sepsis criteria on admission with tachypnea, leukocytosis, likely source of infection is hospital-acquired pneumonia. He has remained afebrile, tachycardia resolved. Mild leukocytosis persists, increased since admission to 18K. Antibiotic management for hospital-acquired pneumonia: -Zosyn 3.375 q 6 given renal impairment 01/20/17-- -Vancomycin as dosed by pharmacy 01/20/17-- -Likely will continue antibiotics, with stop date 01/27 Symptom control as below: - Prednisone 40 mg by mouth daily -> reduced to 20 mg daily given GI bleed. - Breathing treatments with duo nebs every 6 hours - Supplemental oxygen as needed to keep O2 sats greater than 90% - Wean NC as tolerated back to room air, currently requiring 2L by nasal cannula Urine legionella and strep pneumococcal antigens negative Nasal washing negative for influenza Blood cultures : no growth x 5 days (2) Urinary retention Status: Acute Plan: Patient has a history of prostate cancer treated 1 decade ago her daughter. He has acute urinary retention requiring straight catheter 01/23 and urinary retention of 400 mL today. His kidney function is normal. Urinary catheter inserted to monitor output. Urology consult per daughter request, likely requires close outpatient follow-up (3) HTN (hypertension) Status: Chronic Plan: Labile blood pressures ranging from 192/93 on admission to 140-200s systolic and 60s90s diastolic. This persists today but overall improvement of BP to 160s over 70s since the evening of 01/23. Patient is asymptomatic, noting that his blood pressures have been pretty high in the past, noting diastolic pressures in the 100s. Plan: Blood pressure 140s/90s Metoprolol 50 PO q12hr home dose. Will avoid increase given heart rate in the 60s Lisinopril 5 mg daily --> 10 mg daily 01/23 --> 20mg daily since 01/24 Add amlodipine 5 mg daily on 01/25 PRNs: Hydralazine 10 mg PO systolic > 160, diastolic > 90, required on 01/23 Vasotec 1.25 mg IV PRN every 8 hours if NPO, not to be concurrently administered with within 12 hours of PO lisinopril (4) Coffee ground emesis Status: Resolved Plan: Oct 2016 hospitalization had coffee ground emesis - CT showed "mild gastris distension and fluid-filled esophagitis" EGD at that time showed gastritis and esophagitis. -Trend H&H. Stable at 10.1 yesterday, CBC pending today -Type and Screen ordered 01/22 -CT abdomen/pelvis w/o contrast 01/22 showed: Few scattered diverticula. Copius stool in rectum. Mild distension of urinary bladder." Repeat abdominal Xray showed no evidence of bowel obstruction. -Change to IV PPI, 40 mg BID on 02/01 -Consult GI, we appreciate their recommendations - EGD performed 01/23 notable for gastritis of the antrum and hiatal hernia. Recommendations were to continue PPI and antireflux regimen, avoid NSAIDs. -Speech therapy saw patient on 01/23, clear for regular diet, thin liquids, no speech therapy needed after discharge -Zofran 4 mg q 6 hr PRN N/V held 01/23 - QTc interval 481 on most recent EKG -Telemetry showing bradycardia of 55, no other acute events (5) Sepsis Status: Resolved Plan: Met sepsis criteria on admission with tachypnea, leukocytosis, likely source of infection is hospital-acquired pneumonia. He has remained afebrile, tachycardia resolved. Mild leukocytosis persists at approximately 13K persists. Antibiotic management for hospital-acquired pneumonia: -Zosyn 3.375 q 6 given renal impairment 01/20/17-- -Vancomycin as dosed by pharmacy 01/20/17-- -Likely will continue antibiotics at discharge, possibly IV Symptom control as below: - Prednisone 40 mg by mouth daily -> reduced to 20 mg daily given GI bleed. - Breathing treatments with duo nebs every 6 hours - Supplemental oxygen as needed to keep O2 sats greater than 90% Wean as tolerated back to room air, currently requiring 2L by nasal cannula Urine legionella and strep pneumococcal antigens negative Nasal washing negative for influenza Blood cultures : no growth x 3 days. (6) CKD (chronic kidney disease) Status: Chronic Plan: Patient with known chronic kidney disease with baseline creatinine 1.7- 2.0 - On admission creatinine was 1.76, at baseline on 01/22. Improved slightly since admission Monitor BMP Avoid nephrotoxic agents Consider gentle IV fluids if creatinine increases (7) Hx of ventricular tachycardia Status: Acute Plan: History of Bigemy and V. tach on previous admission Electrolytes WNL on admission. K 3.7, Sodium 139. Check Mag and Phos. Replete as necessary. Cardiac telemetry. Previously evaluated by Dr. Baltazar. Nuc stress showed no signs of ischemia in Nov 2016. ECHO during the same admission showed: Mild mitral valve regurgitation, and an EF of 55-60%. (8) History of GI bleed Status: Acute Plan: PPI 40 mg IV BID. Check Hemoccult stool. H&H stable. See above. (9) Debility Status: Acute Plan: Presented from SNF Physical therapy to evaluate patient and work with him while inpatient Would consider palliative care if continuing to decline. (10) Constipation Status: Acute Plan: GI ordered MOM 30 ml x 1 and FLeets enema on 01/22 He got 30 ml x 1 of MOM but did not receive Fleets enema EGD performed 01/23, patient reports no bowel movement since then and no bowel movement documented in EMR We'll give milk of magnesia this morning and fleets enema 1, monitor output, escalate as needed (11) Fluids, Electrolytes, Nutrition Status: Acute Plan: Fluids: 30 ml/hr NS Electrolytes: Monitor and replete as needed Nutrition: Reg basic diet DVT ppx: Mechanical. Hold medical ppx given pos gi bleed. wdw Dr. Michel. (Stacy Nguyen MD R1) Problem Qualifiers (1) HTN (hypertension): Qualified Code: I10 - Essential hypertension (2) Sepsis: Qualified Code: A41.9 - Sepsis, due to unspecified organism Stacy Nguyen MD R1 Jan 25, 2017 12:16 Ryder Michel MD Jan 25, 2017 22:09
[2017-01-25] MEDS ORDERED: LISINOPRIL 10 MG TAB PO ONE (14:00)
[2017-01-25] MEDS: amLODIPine BESYLATE 5 MG TAB PO SCH (16:14)
[2017-01-25] MEDS: traZODone HCL 50 MG TAB PO SCH (21:25)
[2017-01-25] MEDS: ATORVASTATIN 20 MG TAB PO SCH ×2 (21:25→21:37)
[2017-01-25] MEDS: TAMSULOSIN HCL 0.4 MG CAP PO SCH (21:25)
[2017-01-25] MEDS: ENALAPRILAT 1.25 MG/ML VIAL IV PUSH PRN (22:43)
[2017-01-25] MEDS: hydrALAZINE HCL 10 MG TAB PO PRN (22:43)
[2017-01-26] VITALS (10 sets, daily range): BP systolic 137–206; BP diastolic 63–93; PULSE 52–85; RESP 16–18; TEMP 94.3–98.5; O2SAT 93–97
[2017-01-26] MEDS: cloNIDine HCL 0.1 MG TAB PO PRN ×2 (05:03→12:32)
[2017-01-26] MEDS: PIPERACIL-TAZO 3.375 GM PREMIX 50 ML IV SCH ×4 (05:05→21:47)
[2017-01-26 07:35] LABS: EOSINOPHIL # 0.1 TH/MM3 (0-0.4); EOSINOPHIL % 0.5 % (0.0-4.0); LYMPH % 6.1 % (9.0-44.0); LYMPHOCYTE # 1.1 TH/MM3 (1.0-4.8); MEAN CELL VOLUME 93.5 FL (80.0-100.0); MEAN CORPUSCULAR HEMOGLOBIN 32.2 PG (27.0-34.0); MEAN CORPUSCULAR HGB CONC 34.4 % (32.0-36.0); MONO % 5.8 % (0.0-8.0); NEUT % 87.6 % (16.0-70.0); PLATELET COUNT 146 TH/MM3 (150-450); RED BLOOD COUNT 3.31 MIL/MM3 (4.50-5.90); RED CELL DISTRIBUTION WIDTH 14.3 % (11.6-17.2); WHITE BLOOD COUNT 18.2 TH/MM3 (4.0-11.0)
[2017-01-26 07:36] LABS: HEMO FLAGS AUTO DIFF
[2017-01-26 08:09] LABS: ALT (GPT) 15 U/L (12-78); ANION GAP 10 MEQ/L (5-15); AST (GOT) 13 U/L (15-37); BICARBONATE 25.5 MEQ/L (21.0-32.0); BLOOD UREA NITROGEN 20 MG/DL (7-18); CHLORIDE 105 MEQ/L (98-107); GLOMERULAR FILTRATION RATE 37 ML/MIN (>89); POTASSIUM 3.5 MEQ/L (3.5-5.1); SODIUM (NA) 140 MEQ/L (136-145)
[2017-01-26 08:12] LABS: ALKALINE PHOSPHATASE 72 U/L (45-117); TOTAL BILIRUBIN ADULT 0.6 MG/DL (0.2-1.0)
[2017-01-26 08:23] LABS: BANDS 1 % (0-6); MYELOCYTES 1 % (0-0); NEUTROPHIL # MANUAL DIFF 16.9 TH/MM3 (1.8-7.7); POLYS (SEG NEUTROPHILS) 91 % (16-70); WBC DIFF SAMPLE 100
[2017-01-26 08:24] LABS: PLATELET ESTIMATE SMEAR NORMAL (NORMAL); PLATELET MORPHOLOGY NORMAL (NORMAL); SCAN/DIFF FINAL DIFF MANUAL
[2017-01-26] MEDS: predniSONE 20 MG TAB PO SCH (10:04)
[2017-01-26] MEDS: METOPROLOL TARTRATE 50 MG TAB PO SCH ×2 (10:04→21:00)
[2017-01-26] MEDS: ALLOPURINOL 100 MG TAB PO SCH (10:04)
[2017-01-26] MEDS: FERROUS SULFATE 325 MG (65 MG ELEMENTAL IRON) TAB PO SCH (10:04)
[2017-01-26] MEDS: POTASSIUM CHLORIDE 10 MEQ CONTROLLED RELEASE TAB PO SCH ×2 (10:05→21:00)
[2017-01-26] MEDS: LISINOPRIL 10 MG TAB PO SCH (10:05)
[2017-01-26] MEDS: DOCUSATE SODIUM 50 MG/SENNA 8.6 MG TAB PO SCH ×2 (10:05→21:00)
[2017-01-26] MEDS: amLODIPine BESYLATE 5 MG TAB PO SCH (10:05)
[2017-01-26] MEDS: POLYETHYLENE GLYCOL 17 GM PKG PO SCH (10:05)
[2017-01-26] MEDS: PANTOPRAZOLE SOD 40 MG DELAYED RELEASE TAB PO SCH (10:05)
[2017-01-26] MEDS: SODIUM CHLORIDE 0.9% FLUSH 5 ML FLUSH FLUSH SCH ×2 (10:06→21:01)
[2017-01-26] MEDS ORDERED: SODIUM CHLORID 0.9% 500 ML INJ 500 ML IV ONE (12:00)
--- NOTE | 2017-01-26 12:06 | HHI.FPPN ---
Subjective Remarks Pt more lethargic today, falling asleep during conversation. Feels nauseous. No vomiting. No headache and no SOB. Denies CP. (Venancio Schofield MD R2) Objective Vitals Vital Signs Date Time Temp Pulse Resp B/P Pulse Ox O2 Delivery O2 Flow Rate FiO2 01/26/17 06:36 56 137/63 96 01/26/17 06:15 61 187/85 97 01/26/17 06:03 94 Nasal Cannula 2.00 01/26/17 05:02 97.9 62 16 206/93 94 01/26/17 00:00 97.8 60 16 172/76 96 01/25/17 20:00 98.7 63 16 189/81 100 01/25/17 20:00 Nasal Cannula 2.00 01/25/17 16:00 97.6 59 18 187/81 94 I/O 01/25/17 01/25/17 01/25/17 01/26/17 01/26/17 01/26/17 07:00 15:00 23:00 07:00 15:00 23:00 Intake Total 258 ml 200 ml 300 ml Output Total 600 ml Balance 258 ml 200 ml -300 ml Intake Oral 200 ml 250 ml IV Total 258 ml 50 ml Output Urine Total 600 ml # Voids 3 2 # Bowel Movements 2 2 0 (Venancio Schofield MD R2) Result Diagram: 01/26/17 0650 01/26/17 0650 Imaging Last 72 hours Impressions Chest X-Ray 01/26/17 0000 Signed Impressions: Service Date/Time: January 12:42 - CONCLUSION: 1. Focal hazy opacity within the right lung base consistent with probable infiltrate. Clinical correlation is recommended. Guillaume Lee MD Chest X-Ray 01/24/17 0000 Signed Impressions: Service Date/Time: Tuesday, January 24, 2017 09:25 - CONCLUSION: 1. Bibasilar patchiness consistent with atelectasis and/or infiltrates. 2. Tiny bilateral pleural effusions. Guillaume Lee MD Objective Remarks GENERAL: Elderly-appearing male, slightly lethargic SKIN: No rashes, ecchymoses or lesions. Cool and dry. EYES: Pupils equal round and reactive. NECK: Trachea midline. No JVD or lymphadenopathy. CARDIOVASCULAR: Distant heart sounds, however normal right rate and rhythm with no obvious murmur. RESPIRATORY: Patient is breathing comfortably on 2 L nasal cannula. Clear to auscultation bilaterally with some mild basilar wheezing, moderate air exchange GASTROINTESTINAL: Abdomen is not distended on exam. The abdomen is soft and bowel sounds are normal. No masses appreciated. He is mildly tender to deep palpation over the bladder and the left lower quadrant. MUSCULOSKELETAL: Extremities without clubbing, cyanosis, or edema. NEUROLOGICAL: Awake and alert. 2/5 strength left lower ext, 4/5 diet clerk strength of left hand, sensation intact throughout. (Venancio Schofield MD R2) A/P Assessment and Plan Mr. Patel is an 89-year-old male presenting from detention with sepsis due to hospital-acquired pneumonia. Medical problems include hypertension, history of prostate cancer, history of gastritis, HAP in October 2016. He is placed on vancomycin and Zosyn at admission on 01/20. He was noted to have coffee-ground emesis on 01/22, GI consulted and CT was obtained which showed no acute abnormalities. EGD was performed on 01/23/17 notable for gastritis, hiatal hernia , and biopsy is pending. He continues to be medically managed for hospital- acquired pneumonia and gastritis. Discharge Planning Pending clinical improvement of hospital-acquired pneumonia symptoms (i.e., oxygen requirement) and GI recs for discharge. He also needs to have a bowel movement. He will return to SNF, 3008 in chart (Venancio Schofield MD R2) Attending Attestation Pt. examined and case discussed with resident physician I have read the above note and agree with the assessment/plan as discussed with me I was involved in all medical decision making for this patient Ryder Michel MD (Ryder Michel MD) Problem List: (1) HCAP (healthcare-associated pneumonia) Status: Acute Plan: Patient recently hospitalized and treated for pneumonia in 10/21. Broad- spectrum antibiotics started 01/20 due to concern for recurrence of HAP as outlined below: Met sepsis criteria on admission with tachypnea, leukocytosis, likely source of infection is hospital-acquired pneumonia. He has remained afebrile, tachycardia resolved. Mild leukocytosis persists, increased since admission to 18K. Antibiotic management for hospital-acquired pneumonia: -Zosyn 3.375 q 6 given renal impairment 01/20/17-- -Vancomycin as dosed by pharmacy 01/20/17-- -Likely will continue antibiotics, with stop date 01/27 Symptom control as below: - Prednisone 40 mg by mouth daily -> reduced to 20 mg daily given GI bleed. - Breathing treatments with duo nebs every 6 hours - Supplemental oxygen as needed to keep O2 sats greater than 90% - Wean NC as tolerated back to room air, currently requiring 2L by nasal cannula Urine legionella and strep pneumococcal antigens negative Nasal washing negative for influenza Blood cultures : no growth x 5 days (2) Urinary retention Status: Acute Plan: Patient has a history of prostate cancer treated 1 decade ago her daughter. He has acute urinary retention requiring straight catheter 01/23 and urinary retention of 400 mL today. Urology consult per daughter request, likely requires close outpatient follow-up (3) HTN (hypertension) Status: Chronic Plan: Labile blood pressures ranging from 192/93 on admission to 140-200s systolic and 60s90s diastolic. This persists today but overall improvement of BP to 160s over 70s since the evening of 01/23. Patient is asymptomatic, noting that his blood pressures have been pretty high in the past, noting diastolic pressures in the 100s. Plan: Blood pressure 140s/90s Metoprolol 50 PO q12hr home dose. Will avoid increase given heart rate in the 60s Lisinopril 5 mg daily --> 10 mg daily 01/23 --> 20mg daily since 01/24 Add amlodipine 5 mg daily PRNs: Hydralazine 10 mg PO systolic > 160, diastolic > 90, required on 01/23 Vasotec 1.25 mg IV PRN every 8 hours if NPO, not to be concurrently administered with within 12 hours of PO lisinopril (4) Coffee ground emesis Status: Resolved Plan: Oct 2016 hospitalization had coffee ground emesis - CT showed "mild gastris distension and fluid-filled esophagitis" EGD at that time showed gastritis and esophagitis. -Trend H&H. Stable at 10.1 yesterday, CBC pending today -Type and Screen ordered 01/22 -CT abdomen/pelvis w/o contrast 01/22 showed: Few scattered diverticula. Copius stool in rectum. Mild distension of urinary bladder." Repeat abdominal Xray showed no evidence of bowel obstruction. -Change to IV PPI, 40 mg BID on 02/01 -Consult GI, we appreciate their recommendations - EGD performed 01/23 notable for gastritis of the antrum and hiatal hernia. Recommendations were to continue PPI and antireflux regimen, avoid NSAIDs. -Speech therapy saw patient on 01/23, clear for regular diet, thin liquids, no speech therapy needed after discharge -Zofran 4 mg q 6 hr PRN N/V held 01/23 - QTc interval 481 on most recent EKG -Telemetry showing bradycardia of 55, no other acute events (5) Sepsis Status: Resolved Plan: Met sepsis criteria on admission with tachypnea, leukocytosis, likely source of infection is hospital-acquired pneumonia. He has remained afebrile, tachycardia resolved. Mild leukocytosis persists at approximately 18K persists. Antibiotic management for hospital-acquired pneumonia: -Zosyn 3.375 q 6 given renal impairment 01/20/17-- -Vancomycin as dosed by pharmacy 01/20/17-- -Likely will continue antibiotics at discharge, possibly IV Symptom control as below: - Prednisone 40 mg by mouth daily -> reduced to 20 mg daily given GI bleed. - Breathing treatments with duo nebs every 6 hours - Supplemental oxygen as needed to keep O2 sats greater than 90% Wean as tolerated back to room air, currently requiring 2L by nasal cannula Urine legionella and strep pneumococcal antigens negative Nasal washing negative for influenza Blood cultures : no growth x 3 days. (6) CKD (chronic kidney disease) Status: Chronic Plan: Patient with known chronic kidney disease with baseline creatinine 1.7- 2.0 - On admission creatinine was 1.76, at baseline on 01/22. Improved slightly since admission Monitor BMP Avoid nephrotoxic agents Consider gentle IV fluids if creatinine increases (7) Hx of ventricular tachycardia Status: Acute Plan: History of Bigemy and V. tach on previous admission Electrolytes WNL on admission. K 3.7, Sodium 139. Check Mag and Phos. Replete as necessary. Cardiac telemetry. Previously evaluated by Dr. Baltazar. Nuc stress showed no signs of ischemia in Nov 2016. ECHO during the same admission showed: Mild mitral valve regurgitation, and an EF of 55-60%. (8) History of GI bleed Status: Acute Plan: PPI 40 mg IV BID. Check Hemoccult stool. H&H stable. See above. (9) Debility Status: Acute Plan: Presented from [facility] Physical therapy to evaluate patient and work with him while inpatient (10) Constipation Status: Acute Plan: GI ordered MOM 30 ml x 1 and FLeets enema on 01/22 He got 30 ml x 1 of MOM but did not receive Fleets enema EGD performed 01/23, patient reports no bowel movement since then and no bowel movement documented in EMR We'll give milk of magnesia this morning and fleets enema 1, monitor output, escalate as needed (11) Fluids, Electrolytes, Nutrition Status: Acute Plan: Fluids: 30 ml/hr NS Electrolytes: Monitor and replete as needed Nutrition: Reg basic diet DVT ppx: Mechanical. Hold medical ppx given pos gi bleed. wdw Dr. Michel. (Venancio Schofield MD R2) Problem Qualifiers (1) HTN (hypertension): Qualified Code: I10 - Essential hypertension (2) Sepsis: Qualified Code: A41.9 - Sepsis, due to unspecified organism Venancio Schofield MD R2 Jan 26, 2017 12:06 Ryder Michel MD Jan 26, 2017 21:20
--- NOTE | 2017-01-26 13:57 | RADRPT ---
EXAM DATE/TIME: 01/26/2017 12:42 [facility] COMPARISON: CHEST SINGLE AP, January 24, 2017, 9:25. INDICATIONS : Dyspnea MEDICAL HISTORY : Congestive heart failure. Gastroesophageal reflux disease SURGICAL HISTORY : None. ENCOUNTER: Subsequent ACUITY: 1 week PAIN SCORE: 0/10 LOCATION: chest FINDINGS: There is focal hazy opacity within the right lung base consistent with probable focal infiltrate. Cl inical correlation is recommended. The heart is stable. CONCLUSION: 1. Focal hazy opacity within the right lung base consistent with probable infiltrate. Clinical adrián elation is recommended. Guillaume Lee MD on January 26, 2017 at 13:51 Board Certified Radiologist. This report was verified electronically.
--- NOTE | 2017-01-26 16:08 | PD.CONS ---
[facility] Service Urology Consult Requested By Reason for Consult Urinary retention Primary Care Physician Johnny Dong MD Diagnosis: History of Present Illness 89-year-old gentleman with multiple medical problems including dementia and a history of CVA and prostate cancer treated with radiation therapy approximately 15 years ago who was admitted dyspnea and lethargy. During the course of his hospitalization the patient was having some difficulty voiding requiring straight catheterization. At the time of consultation however the patient's daughter reported that for the past 2 days his voiding pattern had return back to normal. He did have a recent bladder scan was negligible postvoid residual. With respect to the patient's prostate cancer this was treated with radiation therapy approximately 15 years ago under the supervision of Dr. Zimmer. Family reports that the patient has not followed up with for quite some time. Family denies a recent PSA. There is been no apparent history of gross hematuria or back pain. Review of Systems ROS Limitations: Poor Historian Past Family Social History Past Medical History Prostate cancer treated with radiation therapy CVA Coronary artery disease Peripheral vascular disease Atrial fibrillation Hyperlipidemia Hypertension Chronic kidney disease GERD Gout Osteoarthritis Anemia Past Surgical History Status post left hip replacement surgery Status post bilateral cataract surgery Reported Medications Refer to EMR Allergies: Coded Allergies: No Known Allergies (Verified , 11/02/16) Active Ordered Medications Refer to EMR Family History Father of pneumonia Social History Occasional alcohol use Physical Exam Vital Signs Date Time Temp Pulse Resp B/P Pulse Ox O2 Delivery O2 Flow Rate FiO2 01/26/17 06:36 56 137/63 96 01/26/17 06:15 61 187/85 97 01/26/17 06:03 94 Nasal Cannula 2.00 01/26/17 05:02 97.9 62 16 206/93 94 01/26/17 00:00 97.8 60 16 172/76 96 01/25/17 20:00 98.7 63 16 189/81 100 01/25/17 20:00 Nasal Cannula 2.00 Physical Exam GENERAL: Elderly man in no apparent distress. SKIN: No rashes, ecchymoses or lesions. Cool and dry. HEAD: Atraumatic. Normocephalic. No temporal or scalp tenderness. EYES: Pupils equal round and reactive. Extraocular motions intact. No scleral icterus. No injection or drainage. ENT: Nose without bleeding, purulent drainage or septal hematoma. Throat without erythema, tonsillar hypertrophy or exudate. Uvula midline. Airway patent. NECK: Trachea midline. No JVD or lymphadenopathy. Supple, nontender, no meningeal signs. GASTROINTESTINAL: Abdomen soft, non-tender, nondistended. No hepato-splenomegaly , or palpable masses. No guarding. MUSCULOSKELETAL: Extremities adequately perfused. Negative Homans sign bilaterally. NEUROLOGICAL: Sleepy but arousable. Laboratory Tests Test 01/26/17 06:50 White Blood Count 18.2 Red Blood Count 3.31 Hemoglobin 10.7 Hematocrit 31.0 Mean Corpuscular Volume 93.5 Mean Corpuscular Hemoglobin 32.2 Mean Corpuscular Hemoglobin 34.4 Concent Red Cell Distribution Width 14.3 Platelet Count 146 Mean Platelet Volume 8.9 Neutrophils (%) (Auto) 87.6 Lymphocytes (%) (Auto) 6.1 Monocytes (%) (Auto) 5.8 Eosinophils (%) (Auto) 0.5 Basophils (%) (Auto) 0.0 Neutrophils # (Auto) 16.0 Lymphocytes # (Auto) 1.1 Monocytes # (Auto) 1.1 Eosinophils # (Auto) 0.1 Basophils # (Auto) 0.0 CBC Comment AUTO DIFF Differential Total Cells 100 Counted Neutrophils % (Manual) 91 Band Neutrophils % 1 Lymphocytes % 4 Monocytes % 3 Neutrophils # (Manual) 16.9 Myelocytes 1 Differential Comment FINAL DIFF MANUAL Platelet Estimate NORMAL Platelet Morphology Comment NORMAL Red Cell Morphology Comment NORMAL Sodium Level 140 Potassium Level 3.5 Chloride Level 105 Carbon Dioxide Level 25.5 Anion Gap 10 Blood Urea Nitrogen 20 Creatinine 1.75 Estimat Glomerular Filtration 37 Rate Random Glucose 119 Calcium Level 9.6 Total Bilirubin 0.6 Aspartate Amino Transf 13 (AST/SGOT) Alanine Aminotransferase 15 (ALT/SGPT) Alkaline Phosphatase 72 Total Protein 6.0 Albumin 2.7 Result Diagram: 01/26/17 0650 01/26/17 0650 Imaging Last Impressions Chest X-Ray 01/24/17 0000 Signed Impressions: Service Date/Time: Tuesday, January 24, 2017 09:25 - CONCLUSION: 1. Bibasilar patchiness consistent with atelectasis and/or infiltrates. 2. Tiny bilateral pleural effusions. Guillaume Lee MD Abdomen X-Ray 01/23/17 0600 Signed Impressions: Service Date/Time: Monday, January 23, 2017 04:45 - CONCLUSION: No evidence for bowel obstruction. There is stool present in the rectum. Boston Bryant MD Abdomen/Pelvis CT 01/22/17 0000 Signed Impressions: Service Date/Time: Sunday, January 22, 2017 10:38 - CONCLUSION: 1. Few scattered diverticula. 2. Minimal fluid in left paracolic gutter. 3. Copious stool in the rectum. 4. Mild distention urinary bladder. 5. Right-sided renal cyst. 6. Small bilateral pleural effusions. 7. 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 8. Lateral bulging left abdominal wall. Eugenio Rodriguez MD Assessment and Plan Assessment and Plan Urologic impression: #1 history prostate cancer status post radiation therapy #2 recent development of urinary retention which has now resolved Recommendations: #1 outpatient follow up approximate 2 weeks after hospital discharge for reassessment of his voiding function #2 may require cystoscopy and a full urodynamics evaluation #3 will be available as needed during present hospitalization Clovis Sheridan MD Jan 26, 2017 16:08
[2017-01-26 18:14] LABS: BLOOD GAS BASE EXCESS -0.8 mmol/L (-2-2); BLOOD GAS CARBOXYHEMOGLOBIN 1.5 % (0-4); BLOOD GAS HCO3 22 mmol/L (22-26); BLOOD GAS METHEMOGLOBIN 0.8 % (0-2); BLOOD GAS O2 HGB SATURATION 94 % (90-100); BLOOD GAS OXYGEN CONTENT 13.9 Vol % (12.0-20.0); BLOOD GAS PCO2 31 mmHg (38-42); BLOOD GAS PO2 82 mmHg (61-120); BLOOD GAS TOTAL HGB 10.4 G/DL (12.0-16.0); CRITICAL VALUE NO; FIO2 21 %; OXYGEN DEVICE ROOM AIR; TEMP CORR TO 98.6
[2017-01-26 18:15] LABS: DRAW SITE RT RADIAL; NUMBER OF ARTERIAL PUNCTURES 1; STAT NO; ULNAR PULSE PRESENT
[2017-01-26] MEDS: traZODone HCL 50 MG TAB PO SCH (21:00)
[2017-01-26] MEDS: TAMSULOSIN HCL 0.4 MG CAP PO SCH (21:00)
[2017-01-26] MEDS ORDERED: amLODIPine BESYLATE 5 MG TAB PO ONE (21:00)
[2017-01-26] MEDS: ATORVASTATIN 20 MG TAB PO SCH (21:00)
[2017-01-26 21:23] LABS: LACTIC ACID GHOST NOT REPORTABLE
[2017-01-26 23:43] LABS: BACTERIA, URINE RARE /hpf; BLOOD, URINE NEG (NEG); COMMENT (UR) CULT NOT INDICATED; CULTURE IF INDICATED CULT NOT INDICATED; GLUCOSE,URINE TRACE mg/dL (NEG); KETONE, URINE NEG (NEG); NITRITE,URINE NEG (NEG); SQUAMOUS EPITHELIAL CELL URINE <1 /hpf (0-5); URINE COLOR LIGHT-YELLOW (YELLW/STRAW)
[2017-01-27 00:30] VITALS: BP 152/66; PULSE 53; RESP 18; TEMP 97.9; O2SAT 94
[2017-01-27 05:30] VITALS: BP_SYST 179; BP_SYST 82; BP_DIAS 82; PULSE 50; RESP 18; TEMP 97.5; O2SAT 96
[2017-01-27] MEDS: cloNIDine HCL 0.1 MG TAB PO PRN (05:42)
[2017-01-27] MEDS: PIPERACIL-TAZO 3.375 GM PREMIX 50 ML IV SCH ×2 (05:42→10:18)
[2017-01-27 07:16] VITALS: BP 186/83; PULSE 47
[2017-01-27 07:29] LABS: AUTOMATED NEUTROPHIL # 14.2 TH/MM3 (1.8-7.7); BASOPHIL % 0.1 % (0.0-2.0); EOSINOPHIL % 0.3 % (0.0-4.0); HEMATOCRIT 30.4 % (39.0-51.0); LYMPH % 6.1 % (9.0-44.0); MEAN CELL VOLUME 92.8 FL (80.0-100.0); MEAN CORPUSCULAR HEMOGLOBIN 31.9 PG (27.0-34.0); MEAN CORPUSCULAR HGB CONC 34.3 % (32.0-36.0); MONO % 6.3 % (0.0-8.0); NEUT % 87.2 % (16.0-70.0); PLATELET COUNT 157 TH/MM3 (150-450); RED BLOOD COUNT 3.27 MIL/MM3 (4.50-5.90); RED CELL DISTRIBUTION WIDTH 14.3 % (11.6-17.2); WHITE BLOOD COUNT 16.2 TH/MM3 (4.0-11.0)
[2017-01-27 07:34] LABS: HEMO FLAGS AUTO DIFF
[2017-01-27 07:59] LABS: ALKALINE PHOSPHATASE 68 U/L (45-117); ALT (GPT) 15 U/L (12-78); ANION GAP 9 MEQ/L (5-15); AST (GOT) 9 U/L (15-37); BICARBONATE 25.3 MEQ/L (21.0-32.0); BLOOD UREA NITROGEN 25 MG/DL (7-18); CHLORIDE 103 MEQ/L (98-107); GLOMERULAR FILTRATION RATE 37 ML/MIN (>89); POTASSIUM 3.7 MEQ/L (3.5-5.1); SODIUM (NA) 137 MEQ/L (136-145); TOTAL BILIRUBIN ADULT 0.5 MG/DL (0.2-1.0)
[2017-01-27 08:00] VITALS: PULSE 96
[2017-01-27 08:19] LABS: EOSINOPHILS 2 % (0-4); MYELOCYTES 4 % (0-0); NEUTROPHIL # MANUAL DIFF 13.9 TH/MM3 (1.8-7.7); PLATELET ESTIMATE SMEAR NORMAL (NORMAL); PLATELET MORPHOLOGY NORMAL (NORMAL); POLYS (SEG NEUTROPHILS) 82 % (16-70); SCAN/DIFF FINAL DIFF MANUAL; WBC DIFF SAMPLE 100
[2017-01-27] MEDS: LISINOPRIL 10 MG TAB PO SCH (08:35)
[2017-01-27] MEDS: DOCUSATE SODIUM 50 MG/SENNA 8.6 MG TAB PO SCH (08:35)
[2017-01-27] MEDS: predniSONE 20 MG TAB PO SCH (08:35)
[2017-01-27] MEDS: PANTOPRAZOLE SOD 40 MG DELAYED RELEASE TAB PO SCH (08:35)
[2017-01-27] MEDS: POLYETHYLENE GLYCOL 17 GM PKG PO SCH (08:36)
[2017-01-27] MEDS: POTASSIUM CHLORIDE 10 MEQ CONTROLLED RELEASE TAB PO SCH (08:36)
[2017-01-27] MEDS: amLODIPine BESYLATE 5 MG TAB PO SCH (08:36)
[2017-01-27] MEDS: SODIUM CHLORIDE 0.9% FLUSH 5 ML FLUSH FLUSH SCH (08:36)
[2017-01-27] MEDS ORDERED: HYDROCHLOROTHIAZIDE 12.5 MG CAP PO ONE (08:45)
--- NOTE | 2017-01-27 08:48 | HHI.FPPN ---
Subjective Remarks Patient was seen and examined this morning. He feels well this morning, denies fevers, chills, shortness of breath, chest pain, headaches, blurry vision, dizziness. He has "no pain". He just ate pancakes and Ensure for breakfast. ( Stacy Nguyen MD R1) Objective Vitals Vital Signs Date Time Temp Pulse Resp B/P Pulse Ox O2 Delivery O2 Flow Rate FiO2 01/27/17 07:16 47 186/83 01/27/17 05:30 97.5 50 18 179/82 96 01/27/17 00:30 97.9 53 18 152/66 94 01/26/17 20:09 53 01/26/17 20:05 97.6 52 18 154/67 93 01/26/17 16:00 94.3 52 18 178/78 93 01/26/17 12:00 97.7 54 18 183/81 96 I/O 01/26/17 01/26/17 01/26/17 01/27/17 01/27/17 01/27/17 06:59 14:59 22:59 06:59 14:59 22:59 Intake Total 300 ml 480 ml 1022 ml 97 ml Output Total 600 ml 360 ml 500 ml 350 ml Balance -300 ml 120 ml 522 ml -253 ml Intake Oral 250 ml 480 ml 480 ml 0 ml IV Total 50 ml 542 ml 97 ml Output Urine Total 600 ml 360 ml 500 ml 350 ml # Bowel Movements 0 1 0 1 (Stacy Nguyen MD R1) Result Diagram: 01/27/17 0640 01/27/17 0640 Objective Remarks GENERAL: Elderly-appearing male, pleasant and smiling, sitting up in bed eating breakfast. SKIN: No rashes, ecchymoses or lesions. Cool and dry. EYES: Pupils equal round and reactive. NECK: Trachea midline. No JVD or lymphadenopathy. CARDIOVASCULAR: Distant heart sounds, however normal right rate and rhythm with no obvious murmur. RESPIRATORY: Patient is breathing comfortably on room air. RR ~14. Lungs are clear to auscultation bilaterally with some mild basilar wheezing, moderate air exchange GASTROINTESTINAL: Abdomen is not distended on exam. The abdomen is soft and bowel sounds are normal. No masses appreciated. Exam is nontender. MUSCULOSKELETAL: Extremities without clubbing, cyanosis, or edema. NEUROLOGICAL: Awake and alert. 2/5 strength left lower ext, 4/5 research physician strength of left hand, sensation intact throughout. (Stacy Nguyen MD R1) Urinary Catheter: No (Stacy Nguyen MD R1) Vascular Central Line Catheter: No (Stacy Nguyen MD R1) A/P Assessment and Plan Mr. Patel is an 89-year-old male presenting [facility] with sepsis due to hospital-acquired pneumonia. Medical problems include hypertension, history of prostate cancer, history of gastritis, HAP in October 2016. He is placed on vancomycin and Zosyn at admission on 01/20. He was noted to have coffee-ground emesis on 01/22, GI consulted and CT was obtained which showed no acute abnormalities. EGD was performed on 01/23/17 notable for gastritis, hiatal hernia , and biopsy is pending. He continues to be medically managed for hospital- acquired pneumonia and gastritis. Discharge Planning Possibly today. He is on room air and clinically improved. He will return to SNF , 3008 in chart (Stacy Nguyen MD R1) Attending Attestation Patient examined and case discussed with resident physician I have read the above note and agree with the assessment/plan as discussed with the I was involved in all medical decision making for this patient Ryder Michel M.D. (Ryder Michel MD) Problem List: (1) HCAP (healthcare-associated pneumonia) Status: Acute Plan: Patient recently hospitalized and treated for pneumonia in 10/21. Broad- spectrum antibiotics started 01/20 due to concern for recurrence of HAP as outlined below: Met sepsis criteria on admission with tachypnea, leukocytosis, likely source of infection is hospital-acquired pneumonia. He has remained afebrile, tachycardia resolved. Mild leukocytosis persists but improved. Patient has sepsis work-up on 01/26 due to reported lethargy but patient had not gotten much sleep the night before. He received 500cc bolus. Work-up revealed normal lactic acid, clean urinalysis, CXR with right lung base infiltrate which is already being treated. Antibiotic management for hospital-acquired pneumonia: -Zosyn 3.375 q 6 given renal impairment 01/20/17-01/27/17) -Vancomycin as dosed by pharmacy 01/20/17--01/27/17) -Continue IV antibiotics with stop date 01/27 (today) Symptom control as below during inpatient stay: - Prednisone 40 mg by mouth daily -> reduced to 20 mg daily given GI bleed. To continue as outpatient. - Breathing treatments with duo nebs every 6 hours PRN - Supplemental oxygen as needed to keep O2 sats greater than 90% - Weaned off O2 by NC, tolerating room air with good O2 saturation >48 hr at discharge Urine legionella and strep pneumococcal antigens negative Nasal washing negative for influenza Blood cultures: no growth x 5 days (2) HTN (hypertension) Status: Chronic Plan: Labile blood pressures ranging from 192/93 on admission to 140-200s systolic and 60s90s diastolic. This persists today, most recent BP 180s/90s. HR is 55 on telemetry and nurse is holding AM metoprolol. Patient is asymptomatic today, noting that his blood pressures have been pretty high in the past, noting diastolic pressures in the 100s. Plan: Blood pressure goal 150s/90s given age Start HCTZ 12.5mg daily 01/27 Lisinopril titrated up to 20mg daily (since 01/24) Metoprolol 50 PO q12hr is home dose. Held AM 01/27 given HR in 50s, keep PM dose on 01/27, monitor HR and BP closely Amlodipine 5 mg daily started 01/26, and will increase to 10mg today if BP not controlled by lunchtime 01/27 PRNs: Hydralazine 10 mg PO systolic > 160, diastolic > 90, requiring this Vasotec 1.25 mg IV PRN every 8 hours if NPO, not to be concurrently administered with within 12 hours of PO lisinopril (3) Urinary retention Status: Resolved Plan: Resolved. Patient has a history of prostate cancer treated 1 decade ago her daughter. He has acute urinary retention requiring straight catheter 01/23 and urinary retention of 400 mL today. Urology consult per daughter request, appreciate recs, will get follow-up as outpatient, possible cystoscopy (4) Coffee ground emesis Status: Resolved Plan: Oct 2016 hospitalization had coffee ground emesis - CT showed "mild gastris distension and fluid-filled esophagitis" EGD at that time showed gastritis and esophagitis. -Trend H&H. Stable at 10.1 yesterday, CBC pending today -Type and Screen ordered 01/22 -CT abdomen/pelvis w/o contrast 01/22 showed: Few scattered diverticula. Copius stool in rectum. Mild distension of urinary bladder." Repeat abdominal Xray showed no evidence of bowel obstruction. -Change to IV PPI, 40 mg BID on 02/01 -Consult GI, we appreciate their recommendations - EGD performed 01/23 notable for gastritis of the antrum and hiatal hernia. Recommendations were to continue PPI and antireflux regimen, avoid NSAIDs. -Speech therapy saw patient on 01/23, clear for regular diet, thin liquids, no speech therapy needed after discharge -Zofran 4 mg q 6 hr PRN N/V held 01/23 - QTc interval 481 on most recent EKG -Telemetry showing bradycardia of 55, no other acute events (5) Sepsis Status: Resolved Plan: Met sepsis criteria on admission with tachypnea, leukocytosis, likely source of infection is hospital-acquired pneumonia. Management as above. (6) CKD (chronic kidney disease) Status: Chronic Plan: Patient with known chronic kidney disease with baseline creatinine 1.7- 2.0 - On admission creatinine was 1.76, at baseline on 01/22. Improved slightly since admission Monitor BMP Avoid nephrotoxic agents Consider gentle IV fluids if creatinine increases (7) Hx of ventricular tachycardia Status: Acute Plan: History of Bigemy and V. tach on previous admission Electrolytes WNL on admission. K 3.7, Sodium 139. Check Mag and Phos. Replete as necessary. Cardiac telemetry. Previously evaluated by Dr. Baltazar. Nuc stress showed no signs of ischemia in Nov 2016. ECHO during the same admission showed: Mild mitral valve regurgitation, and an EF of 55-60%. (8) History of GI bleed Status: Acute Plan: PPI 40 mg PO daily BID. GI performed EGD 01/23 showing recurrence of esophagitis. H&H stable. (9) Debility Status: Acute Plan: Presented from [facility] Physical therapy to evaluate patient and work with him while inpatient Return to [facility] today (10) Constipation Status: Acute Plan: GI ordered MOM 30 ml x 1 and FLeets enema on 01/22 He got 30 ml x 1 of MOM but did not receive Fleets enema EGD performed 01/23, patient reports no bowel movement since then and no bowel movement documented in EMR Bowel movements have normalized, continue symptomatic management as outpatient (11) Fluids, Electrolytes, Nutrition Status: Acute Plan: Fluids: PO hydration Electrolytes: Monitor and replete as needed Nutrition: Reg basic diet DVT ppx: Mechanical. Hold medical ppx given pos gi bleed. wdw Dr. Michel. (Stacy Nguyen MD R1) Problem Qualifiers (1) HTN (hypertension): Qualified Code: I10 - Essential hypertension (2) Sepsis: Qualified Code: A41.9 - Sepsis, due to unspecified organism Stacy Nguyen MD R1 Jan 27, 2017 08:48 Ryder Michel MD Jan 27, 2017 16:39 Stacy Nguyen MD R1 Jan 27, 2017 08:48
[2017-01-27] MEDS: METOPROLOL TARTRATE 50 MG TAB PO SCH (09:00)
[2017-01-27 10:48] VITALS: O2SAT 94
[2017-01-27] MEDS ORDERED: VANCOMYCIN INJ 1,250 MG in SODIUM CHLOR 0.9% 250 ML INJ 250 ML IV SCH (12:00)
[2017-01-27] MEDS ORDERED: CLON.1 PO (13:33)
[2017-01-27] MEDS ORDERED: PANT40TA3 PO (13:33)
[2017-01-27] MEDS ORDERED: AMLO5 PO (13:33)
[2017-01-27] MEDS ORDERED: LISI10TA3 PO (13:33)
[2017-01-27] MEDS ORDERED: METO25TA3 PO (13:33)
--- NOTE | 2017-01-27 13:34 | HHI.DCPOC ---
Discharge Care Plan Diagnosis: (1) HCAP (healthcare-associated pneumonia) (2) History of GI bleed (3) CKD (chronic kidney disease) (4) Urinary retention (5) Shortness of breath (6) History of prostate cancer (7) Sepsis (8) Constipation (9) HTN (hypertension) (10) Debility Goals to Promote Your Health * To prevent worsening of your condition and complications * To maintain your health at the optimal level Directions to Meet Your Goals Take your medications as prescribed Follow your dietary instruction Follow activity as directed Keep your appointments as scheduled Take your immunizations and boosters as scheduled If your symptoms worsen call your PCP, if no PCP go to Urgent Care Center or Emergency Room Smoking is Dangerous to Your Health. Avoid second hand smoke Call the 24-hour hour crisis hotline for domestic abuse at Stacy Nguyen MD R1 Jan 27, 2017 13:34
--- NOTE | 2017-01-27 16:50 | HHI.DS ---
Discharge Summary Admission Date Jan 20, 2017 at 13:10 Discharge Date: Jan 27, 2017 Admitting Diagnosis sepsis, pneumonia (1) HCAP (healthcare-associated pneumonia) Diagnosis: Principal Plan: Patient recently hospitalized and treated for pneumonia in 10/21. Broad- spectrum antibiotics started 01/20 due to concern for recurrence of HAP as outlined below: Met sepsis criteria on admission with tachypnea, leukocytosis, likely source of infection is hospital-acquired pneumonia. He has remained afebrile, tachycardia resolved. Mild leukocytosis persists but improved. Patient has sepsis work-up on 01/26 due to reported lethargy but patient had not gotten much sleep the night before. He received 500cc bolus. Work-up revealed normal lactic acid, clean urinalysis, CXR with right lung base infiltrate which is already being treated. Antibiotic management for hospital-acquired pneumonia: -Zosyn 3.375 q 6 given renal impairment 01/20/17-01/27/17) -Vancomycin as dosed by pharmacy 01/20/17--01/27/17) -Continue IV antibiotics with stop date 01/27 (today) Symptom control as below during inpatient stay: - Prednisone 40 mg by mouth daily -> reduced to 20 mg daily given GI bleed. To continue as outpatient. - Breathing treatments with duo nebs every 6 hours PRN - Supplemental oxygen as needed to keep O2 sats greater than 90% - Weaned off O2 by NC, tolerating room air with good O2 saturation >48 hr at discharge Urine legionella and strep pneumococcal antigens negative Nasal washing negative for influenza Blood cultures: no growth x 5 days (2) HTN (hypertension) Diagnosis: Principal Plan: Labile blood pressures ranging from 192/93 on admission to 140-200s systolic and 60s90s diastolic. This persists today, most recent BP 180s/90s. HR is 55 on telemetry and nurse is holding AM metoprolol. Patient is asymptomatic today, noting that his blood pressures have been pretty high in the past, noting diastolic pressures in the 100s. Plan: Blood pressure goal 150s/90s given age Start HCTZ 12.5mg daily 01/27 Lisinopril titrated up to 20mg daily (since 01/24) Metoprolol 50 PO q12hr is home dose. Held AM 01/27 given HR in 50s, keep PM dose on 01/27, monitor HR and BP closely Amlodipine 5 mg daily started 01/26, and will increase to 10mg today if BP not controlled by lunchtime 01/27 PRNs: Hydralazine 10 mg PO systolic > 160, diastolic > 90, requiring this Vasotec 1.25 mg IV PRN every 8 hours if NPO, not to be concurrently administered with within 12 hours of PO lisinopril (3) Urinary retention Diagnosis: Secondary Plan: Resolved. Patient has a history of prostate cancer treated 1 decade ago her daughter. He has acute urinary retention requiring straight catheter 01/23 and urinary retention of 400 mL today. Urology consult per daughter request, appreciate recs, will get follow-up as outpatient, possible cystoscopy (4) Coffee ground emesis Diagnosis: Secondary Plan: Oct 2016 hospitalization had coffee ground emesis - CT showed "mild gastris distension and fluid-filled esophagitis" EGD at that time showed gastritis and esophagitis. -Trend H&H. Stable at 10.1 yesterday, CBC pending today -Type and Screen ordered 01/22 -CT abdomen/pelvis w/o contrast 01/22 showed: Few scattered diverticula. Copius stool in rectum. Mild distension of urinary bladder." Repeat abdominal Xray showed no evidence of bowel obstruction. -Change to IV PPI, 40 mg BID on 02/01 -Consult GI, we appreciate their recommendations - EGD performed 01/23 notable for gastritis of the antrum and hiatal hernia. Recommendations were to continue PPI and antireflux regimen, avoid NSAIDs. -Speech therapy saw patient on 01/23, clear for regular diet, thin liquids, no speech therapy needed after discharge -Zofran 4 mg q 6 hr PRN N/V held 01/23 - QTc interval 481 on most recent EKG -Telemetry showing bradycardia of 55, no other acute events (5) Sepsis Diagnosis: Principal Plan: Met sepsis criteria on admission with tachypnea, leukocytosis, likely source of infection is hospital-acquired pneumonia. Management as above. (6) CKD (chronic kidney disease) Diagnosis: Secondary Plan: Patient with known chronic kidney disease with baseline creatinine 1.7- 2.0 - On admission creatinine was 1.76, at baseline on 01/22. Improved slightly since admission Monitor BMP Avoid nephrotoxic agents Consider gentle IV fluids if creatinine increases (7) Hx of ventricular tachycardia Diagnosis: Secondary Plan: History of Bigemy and V. tach on previous admission Electrolytes WNL on admission. K 3.7, Sodium 139. Check Mag and Phos. Replete as necessary. Cardiac telemetry. Previously evaluated by Dr. Baltazar. Nuc stress showed no signs of ischemia in Nov 2016. ECHO during the same admission showed: Mild mitral valve regurgitation, and an EF of 55-60%. (8) History of GI bleed Diagnosis: Secondary Plan: PPI 40 mg PO daily BID. GI performed EGD 01/23 showing recurrence of esophagitis. H&H stable. (9) Debility Diagnosis: Secondary Plan: Presented from [facility] Physical therapy to evaluate patient and work with him while inpatient Return to [facility] today (10) Constipation Diagnosis: Secondary Plan: GI ordered MOM 30 ml x 1 and FLeets enema on 01/22 He got 30 ml x 1 of MOM but did not receive Fleets enema EGD performed 01/23, patient reports no bowel movement since then and no bowel movement documented in EMR Bowel movements have normalized, continue symptomatic management as outpatient [facility] Brief History Nic Patel is a very pleasant 89-year-old male, with a past medical history of CVA with left-sided weakness, coronary artery disease, hyperlipidemia, hypertension, hospital acquired pneumonia in November 2016, prostate cancer status post radiation, GI bleed, ventricular tachycardia nonsustained, bigmeny, chronic kidney disease, anemia, and hypokalemia, presenting from [facility], after the nurses noticed labored breathing, lethargy, and desaturations to 89% at rest. They also noted that his blood pressure was elevated at 180/90, and he was tachycardic to 100 bpm. Tawanna from the [facility], states that a son-in-law that was visiting had the stomach flu, however the patient has not been having any diarrhea. The daughter , Robert, says that approximately one week ago her father was vomiting after meals. HPI: On exam, the patient is alert and oriented to person, place, and year. He is able to tell me his 4 daughters names. He denies any current symptoms, such as cough, shortness of breath, or chest pain. He denies any blood in his stool , or diarrhea. He denies any abdominal pain. He denies any headaches, or changes in his vision. CBC/BMP: 01/27/17 0640 01/27/17 0640 Significant Findings Laboratory Tests Test 01/25/17 01/26/17 01/26/17 01/26/17 07:27 06:50 18:00 19:04 White Blood Count 18.0 TH/MM3 18.2 TH/MM3 (4.0-11.0) (4.0-11.0) Red Blood Count 3.32 MIL/MM3 3.31 MIL/MM3 (4.50-5.90) (4.50-5.90) Hemoglobin 10.5 GM/DL 10.7 GM/DL (13.0-17.0) (13.0-17.0) Hematocrit 31.0 % 31.0 % (39.0-51.0) (39.0-51.0) Platelet Count 147 TH/MM3 146 TH/MM3 (150-450) (150-450) Neutrophils (%) (Auto) 91.2 % 87.6 % (16.0-70.0) (16.0-70.0) Lymphocytes (%) (Auto) 3.8 % 6.1 % (9.0-44.0) (9.0-44.0) Neutrophils # (Auto) 16.4 TH/MM3 16.0 TH/MM3 (1.8-7.7) (1.8-7.7) Lymphocytes # (Auto) 0.7 TH/MM3 (1.0-4.8) Chloride Level 109 MEQ/L (98-107) Blood Urea Nitrogen 23 MG/DL (7-18) 20 MG/DL (7-18) Creatinine 1.92 MG/DL 1.75 MG/DL (0.60-1.30) (0.60-1.30) Estimat Glomerular Filtration 33 ML/MIN (>89) 37 ML/MIN (>89) Rate Random Glucose 109 MG/DL 119 MG/DL (74-106) (74-106) Phosphorus Level 1.7 MG/DL (2.5-4.9) Monocytes # (Auto) 1.1 TH/MM3 (0-0.9) Neutrophils % (Manual) 91 % (16-70) Lymphocytes % 4 % (9-44) Neutrophils # (Manual) 16.9 TH/MM3 (1.8-7.7) Myelocytes 1 % (0-0) Aspartate Amino Transf 13 U/L (15-37) (AST/SGOT) Total Protein 6.0 GM/DL (6.4-8.2) Albumin 2.7 GM/DL (3.4-5.0) Arterial Blood pH 7.48 (7.380-7.420) Arterial Blood Partial 31 mmHg (38-42) Pressure CO2 Blood Gas Hemoglobin 10.4 G/DL (12.0-16.0) Lactic Acid Level 2.3 mmol/L (0.4-2.0) Prostate Specific Antigen 129.28 NG/ML (0.00-4.00) Test 01/26/17 01/27/17 22:30 06:40 Urine Bacteria RARE /hpf (NONE) Urine Yeast (Budding) FEW (NONE) White Blood Count 16.2 TH/MM3 (4.0-11.0) Red Blood Count 3.27 MIL/MM3 (4.50-5.90) Hemoglobin 10.4 GM/DL (13.0-17.0) Hematocrit 30.4 % (39.0-51.0) Neutrophils (%) (Auto) 87.2 % (16.0-70.0) Lymphocytes (%) (Auto) 6.1 % (9.0-44.0) Neutrophils # (Auto) 14.2 TH/MM3 (1.8-7.7) Monocytes # (Auto) 1.0 TH/MM3 (0-0.9) Neutrophils % (Manual) 82 % (16-70) Lymphocytes % 5 % (9-44) Neutrophils # (Manual) 13.9 TH/MM3 (1.8-7.7) Myelocytes 4 % (0-0) Blood Urea Nitrogen 25 MG/DL (7-18) Creatinine 1.73 MG/DL (0.60-1.30) Estimat Glomerular Filtration 37 ML/MIN (>89) Rate Random Glucose 110 MG/DL (74-106) Aspartate Amino Transf 9 U/L (15-37) (AST/SGOT) Total Protein 5.6 GM/DL (6.4-8.2) Albumin 2.4 GM/DL (3.4-5.0) Imaging Last Impressions Chest X-Ray 01/26/17 0000 Signed Impressions: Service Date/Time: January 12:42 - CONCLUSION: 1. Focal hazy opacity within the right lung base consistent with probable infiltrate. Clinical correlation is recommended. Guillaume Lee MD Abdomen X-Ray 01/23/17 0600 Signed Impressions: Service Date/Time: Monday, January 23, 2017 04:45 - CONCLUSION: No evidence for bowel obstruction. There is stool present in the rectum. Boston Bryant MD Abdomen/Pelvis CT 01/22/17 0000 Signed Impressions: Service Date/Time: Sunday, January 22, 2017 10:38 - CONCLUSION: 1. Few scattered diverticula. 2. Minimal fluid in left paracolic gutter. 3. Copious stool in the rectum. 4. Mild distention urinary bladder. 5. Right-sided renal cyst. 6. Small bilateral pleural effusions. 7. 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 8. Lateral bulging left abdominal wall. Eugenio Rodriguez MD PE at Discharge GENERAL: Elderly-appearing male, pleasant and smiling, sitting up in bed eating breakfast. SKIN: No rashes, ecchymoses or lesions. Cool and dry. EYES: Pupils equal round and reactive. NECK: Trachea midline. No JVD or lymphadenopathy. CARDIOVASCULAR: Distant heart sounds, however normal right rate and rhythm with no obvious murmur. RESPIRATORY: Patient is breathing comfortably on room air. RR ~14. Lungs are clear to auscultation bilaterally with some mild basilar wheezing, moderate air exchange GASTROINTESTINAL: Abdomen is not distended on exam. The abdomen is soft and bowel sounds are normal. No masses appreciated. Exam is nontender. MUSCULOSKELETAL: Extremities without clubbing, cyanosis, or edema. NEUROLOGICAL: Awake and alert. 2/5 strength left lower ext, 4/5 mainframe applications developer strength of left hand, sensation intact throughout. Hospital Course 89 year old male who presented from [facility] with history of AMS. He was noted to have recent history of HAP treated as inpatient. He was empirically started on IV Vanc and Zosyn given history and O2 requirement. CXR not immediately indicative of PNA but could not be ruled out. He was also noted to have history of GI bleed and had episode of GI bleeding which resolved spontaneously. EGD was performed the next day which showed recurrence of gastritis--> oral prednisone reduced in dose and PPI and other GI soothing medications were escalated. Course was further complicated by episode of lethargy on 01/25, and repeat sepsis work-up was unremarkable. Repeat CXR did show evidence of right lung base opacity. IV antibiotics were continued throughout hospital stay (01/20 to ). He tolerated room air >48 hours prior to discharge. He did have transient episodes of urinary retention; in combination with history of prostate cancer and daughter's request urology was consulted; recommended close outpatient follow-up. He was discharged to SNF on 01/27 in stable condition. Pt Condition on Discharge: Stable Discharge Disposition: Discharge to SNF Discharge Instructions DIET: Follow Instructions for: Soft Diet Speech Therapy-Diet Recommends: Mechanical Soft Additional Diet Instructions: Mechanical soft, thin liquids Activities you can perform: See Additionl Instruction Other Activity Instructions: PT/OT evaluate and treat at SNF Follow up Referrals: Physician - 3-5 Days SNF/[facility]/ with [facility] - 2 Weeks with Clovis Sheridan MD New Medications: Amlodipine (Norvasc) 5 Mg Tab 5 MG PO DAILY #30 TAB Clonidine (Catapres) 0.1 Mg Tab 0.1 MG PO Q6H PRN SBP>180, DBP>100 #30 TAB Lisinopril (Lisinopril) 10 Mg Tab 20 MG PO DAILY #30 TAB Pantoprazole (Pantoprazole) 40 Mg Tab 40 MG PO DAILY #30 TAB Continued Medications: Allopurinol (Allopurinol) 100 Mg Tab 100 MG PO DAILY Gout #[address] Ref [address] (Aspirin 81) 81 Mg Tabdr 81 MG PO DAILY Ref 0 TAB Atorvastatin (Atorvastatin) 20 Mg Tab 20 MG PO HS Cholesterol Management #30 Ref 0 TAB Clopidogrel (Clopidogrel) 75 Mg Tab 75 MG PO DAILY Blood Clot Prevention #30 Ref 0 TAB Ferrous Sulfate (Ferrous Sulfate) 325 Mg Tab 325 MG PO TID Take with meals ANEMIA #30 Ref 0 TAB Lisinopril (Lisinopril) 5 Mg Tab 5 MG PO DAILY Blood Pressure Management #30 Ref 0 TAB Metoprolol Tartrate (Metoprolol Tartrate) 25 Mg Tab 50 MG PO Q12HR prevent PVCs #30 TAB (This prescription has been renewed) Ondansetron (Zofran) 4 Mg Tab 4 MG PO Q6HR PRN NAUSEA OR VOMITING Ref 0 TAB Potassium Chloride ER (Klor-Con 10) 10 Meq Tab 10 MEQ PO BID Electrolyte Replacement #60 Ref 0 TAB Tamsulosin (Tamsulosin) 0.4 Mg Cap 0.4 MG PO HS Manage Prostate Problems #30 Ref 0 CAP Trazodone (Trazodone) 50 Mg Tab 25 MG PO HS Control Depression #30 Ref 0 TAB Discontinued Medications: Metoclopramide (Reglan) 5 Mg Tab 5 MG PO TID With meals Nausea #120 Ref 0 TAB Pantoprazole (Pantoprazole) 20 Mg Tab 20 MG PO DAILY GERD #30 Ref 0 TAB Stacy Nguyen MD R1 Jan 27, 2017 16:50
[2017-01-28] MEDS ORDERED: HYDROCHLOROTHIAZIDE 12.5 MG CAP PO SCH (09:00)
[2017-01-30] MEDS ORDERED: PHARMACY ORDERED LAB XX ONE (11:45)
== END 2017-01-27 15:07 | DRG 871 ==
LOC: NEPE 10:45 → NEDA 13:10 → N04A 15:31
PROVIDERS: ADMIT Family Medicine; ATTEND Family Medicine
DX: A41.9 Sepsis, unspecified organism (principal); J69.0 Pneumonitis due to inhalation of food and vomit; I50.9 Heart failure, unspecified; I48.91 Unspecified atrial fibrillation; K92.2 Gastrointestinal hemorrhage, unspecified; I69.354 Hemiplegia and hemiparesis following cerebral infarction affecting left non-dominant side; F03.90 Unspecified dementia, unspecified severity, without behavioral disturbance, psychotic disturbance, mood disturbance, and anxiety; I45.10 Unspecified right bundle-branch block; I12.9 Hypertensive chronic kidney disease with stage 1 through stage 4 chronic kidney disease, or unspecified chronic kidney disease; E78.5 Hyperlipidemia, unspecified; N18.9 Chronic kidney disease, unspecified; I25.10 Atherosclerotic heart disease of native coronary artery without angina pectoris; I73.9 Peripheral vascular disease, unspecified; K21.0 Gastro-esophageal reflux disease with esophagitis; K29.50 Unspecified chronic gastritis without bleeding; K44.9 Diaphragmatic hernia without obstruction or gangrene; M10.9 Gout, unspecified; K59.00 Constipation, unspecified; R33.8 Other retention of urine; R09.02 Hypoxemia; Y95 Nosocomial condition; Z79.899 Other long term (current) drug therapy; Z85.46 Personal history of malignant neoplasm of prostate; Z92.3 Personal history of irradiation; Z96.642 Presence of left artificial hip joint; H91.90 Unspecified hearing loss, unspecified ear
CPT/HCPCS: 36600; 71010; 74000; 74176; 80048; 80053; 80202; 81001; 82805; 83605; 83690; 83735; 83880; 84100; 84153; 84484; 85007; 85014; 85018; 85025; 85027; 85610; 85652; 85730; 86850; 86900; 86901; 87040; 87449; 87804; 88305; 88312; 93005; 94640; 94664; 94667; 94668; 96365; 96374; C9113; J1650; J2060; J2543; J3370; J7030; J7040; J7050; J7120; J7512; J7613